=== PATIENT | male | born 1965 | race Caucasian/White ===

== ENCOUNTER → 2019-02-12 | Outpatient (CLI) | payer MEDICAID, OTHER ==
--- NOTE | 2019-02-13 08:43 | REP ---
MRI cervical spine without contrast: History: Chronic neck pain. No comparison cervical spine imaging. Technique: Sagittal and axial T1 and T2-weighted scans are acquired in the usual fashion with and without fat saturation. Sequences include spin echo, turbo spin-echo, and STIR imaging sequences. MRI findings: There is reversal of the normal cervical lordosis. Cervical vertebral body heights are preserved. Alignment is otherwise normal. Craniocervical junction is unremarkable. Cervical cord demonstrates normal course, caliber, and signal intensity on T1 and T2-weighted scans. Axial and sagittal images taken at the C2-3 level show no abnormality. At C3-4, there is mild diffuse disc bulging effacing the ventral subarachnoid space. No cord compression or neural foraminal narrowing. At C4-5, there is degenerative disc narrowing and decreased disc space signal intensity. Diffuse disc bulging and mild posterior osteophytic ridging is seen with bilateral neural foraminal narrowing. There is minimal ligamentum flavum hypertrophy dorsally. These factors produce central canal stenosis mild in degree. Midline AP dimension of the thecal sac is 8 mm at this level. At C5-C6, there is a broad-based disc bulge eccentric slightly to the right effacing the ventral subarachnoid space. No significant canal stenosis. There is minimal uncovertebral spurring. At C6-C7, there is disc space narrowing and mild diffuse disc bulging. Mild bilateral uncovertebral spurring is seen. No central canal stenosis or cord compression. The C7-T1 level shows no abnormality. Impression: Degenerative spondylosis changes. Findings include mild central canal stenosis at C4-5 with bilateral neural foraminal narrowing. Mild bilateral neural foraminal narrowing is also noted at the C5-6 and C6-7. Electronically Signed by Rikki Timmons MD 02/13/2019 06:30 P
--- NOTE | 2019-02-13 08:43 | REP ---
Lumbar spine without contrast: History: Chronic back pain. No comparison imaging. Technique: Sagittal and axial T1 and T2-weighted scans are acquired in the usual fashion with and without fat saturation. Sequences include spin echo, turbo spin-echo, and STIR imaging sequences. MRI findings: Lumbar vertebral body heights are preserved. Alignment is normal. There is no evidence of spondylolysis or spondylolisthesis. Cortical and medullary bone signal intensity are normal. Conus medullaris is normal in position and appearance at L1. No extra spinal abnormality is observed. Normal caliber aorta. There are degenerative disc changes at each level from L2-3 L5-S1. Axial and sagittal images at the L1-L2 level show no abnormality. L2-3, there is degenerative disc narrowing and mild diffuse disc bulging indenting the ventral thecal sac margin. No central canal stenosis or neural foraminal narrowing is noted. No focal disc herniation is seen. At L3-4, there are similar findings with minimal disc bulging and narrowing. At L3-4, there is mild ligamentum flavum and facet hypertrophy. No central canal stenosis is noted. Neural foramina show no evidence of encroachment. At L4-5, there is mild facet and ligamentum flavum hypertrophy. Minimal disc bulging. No central canal stenosis or neural foraminal narrowing is seen. At L5-S1, there is degenerative narrowing. Broad-based central disc bulging is seen indenting the thecal sac margin and subtly. No neural foraminal narrowing or central canal stenosis seen. Impression: Mild degenerative spondylosis changes as noted above. No spinal stenosis, focal disc herniation, or neural foraminal narrowing is appreciated. Electronically Signed by Rikki Timmons MD 02/13/2019 06:30 P
== END ==
LOC: M RAD 16:34
PROVIDERS: ATTEND Family Medicine
DX: M54.5 Low back pain (principal); M43.16 Spondylolisthesis, lumbar region; M43.12 Spondylolisthesis, cervical region; M50.21 Other cervical disc displacement, high cervical region; M50.221 Other cervical disc displacement at C4-C5 level; M50.222 Other cervical disc displacement at C5-C6 level; M50.223 Other cervical disc displacement at C6-C7 level

== ENCOUNTER → 2019-02-24 | Outpatient (REF) | payer OTHER ==
[2019-02-24 13:24] LABS: BASO # 0.1 10^3/uL (0.0-0.2); BASO % 0.8 % (0.0-1.0); EOS # 0.7 10^3/uL (0.0-0.50); EOS % 5.5 % (0.0-3.0); HEMOGLOBIN 17.2 g/dl (13.5-17.5); LYMPH # 2.4 10^3/uL (1.5-4.5); LYMPH % 19.4 % (24.0-44.0); MEAN CORPUSCULAR HEMOGLOBIN 29.6 pg (27.0-33.0); MEAN CORPUSCULAR HGB CONC 32.5 g/dl (32.0-36.5); MEAN CORPUSCULAR VOLUME 91.2 fl (80.0-96.0); MONO # 0.6 10^3/uL (0.0-0.8); MONO % 5.1 % (0.0-5.0); NEUTROPHILS # 8.3 10^3/uL (1.8-7.7); NEUTROPHILS % 67.8 % (36.0-66.0); PLATELET COUNT, AUTOMATED 350 10^3/uL (150-450); RED BLOOD COUNT 5.81 10^6/uL (4.30-6.10); WHITE BLOOD COUNT 12.3 10^3/uL (4.0-10.0)
[2019-02-24 13:51] LABS: ALT/SGPT 38 U/L (12-78); BILIRUBIN,TOTAL 0.2 MG/DL (0.2-1.0); BLOOD UREA NITROGEN 14 MG/DL (7-18); CALCIUM LEVEL 8.8 MG/DL (8.5-10.1); CARBON DIOXIDE LEVEL 28 MEQ/L (21-32); CHLORIDE LEVEL 107 MEQ/L (98-107); CHOLESTEROL LEVEL 223 MG/DL (<200); CREATININE FOR GFR 0.89 MG/DL (0.70-1.30); GLOMERULAR FILTRATION RATE > 60.0 (>56); GLUCOSE, FASTING 88 MG/DL (70-100); POTASSIUM SERUM 4.5 MEQ/L (3.5-5.1); SODIUM LEVEL 140 MEQ/L (136-145); TRIGLYCERIDES LEVEL 126 MG/DL (<150)
[2019-02-24 13:52] LABS: ALBUMIN 3.8 GM/DL (3.2-5.2); COMPLEMENT C3 124 MG/DL (90-180); COMPLEMENT C4 28 MG/DL (10-40); HDL CHOLESTEROL 50 MG/DL (>40); LDL CHOLESTEROL 148 MG/DL (<100); NON-HDL-C 173 MG/DL; RHEUMATOID FACTOR QUANT < 10.0 IU/ML (<15.0); THYROXINE (T4) 6.7 UG/DL (4.5-12.0); TOTAL PROTEIN 6.6 GM/DL (6.4-8.2); URIC ACID 5.2 MG/DL (3.5-7.2)
[2019-02-24 13:53] LABS: TOTAL 25(OH) VITAMIN D 13.3 NG/ML (30.0-100.0)
[2019-02-24 15:32] LABS: HEMOGLOBIN A1c 5.8 %
[2019-02-24 21:53] LABS: ERYTHROCYTE SEDIMENTATION RATE 1 mm/hr (0-20)
== END ==
LOC: M LAB REF 12:26
PROVIDERS: ATTEND Family Medicine
DX: Z13.228 Encounter for screening for other metabolic disorders (principal); M25.50 Pain in unspecified joint

== ENCOUNTER 2019-06-11 12:27 | Emergency (ER) | payer OTHER ==
[~2019-06-11] VITALS: Ht 177.8 cm; Wt 84.4 kg
[2019-06-11 12:28] VITALS: BP 112/76
[2019-06-11] MEDS ORDERED: GABA-1171 (12:35)
[2019-06-11] MEDS ORDERED: TIZA4TAB4 PO (12:35)
[2019-06-11] MEDS ORDERED: PERC5TAB12 PO (13:21)
[2019-08-06] MEDS ORDERED: GABA-843 PO (16:57)
[2019-08-06] MEDS ORDERED: HYDR-3716 PO (16:57)
== END 2019-06-11 13:27 | disposition home or self-care (01) ==
LOC: M ED 12:27
DX: G89.29 Other chronic pain (principal); M54.5 Low back pain; F17.210 Nicotine dependence, cigarettes, uncomplicated

== ENCOUNTER → 2019-06-30 | Outpatient (CLI) | payer OTHER, MEDICAID ==
[~2019-06-30] MED LIST: GABA-1171; GABA-843 PO; HYDR-3716 PO; PERC5TAB12 PO; TIZA4TAB4 PO
--- NOTE | 2019-07-04 00:24 | ECWPNPC ---
PATIENT NAME: CHAYA ESCOBAR : 1965 GENDER: MALE VISIT DATE: 06/30/2019 DISCHARGE DATE: 06/30/19 0000 VISIT LOCKED DATE TIME: PHYSICIAN: ALKA ELLIS MD RESOURCE: ALKA ELLIS MD REASON FOR APPOINTMENT 1. NPC, LBP/NECK HISTORY OF PRESENT ILLNESS PAIN SCREENING: PATIENT HAS A COMPLAINT OF ACUTE OR CHRONIC PAIN :YES 54 YEAR OLD MALE PATIENT WITH A HISTORY OF CHRONIC MULTIPLE BODY PAIN. THE PATIENT DESCRIBES THE PAIN ACHING, BURNING, SORE, TENDER, SHARP, STABBING, SHOOTING, AND CONTINUOUS WITH A PAIN SCORE OF 7-10/10 DEPENDING ON PHYSICAL ACTIVITY. THE PATIENT STATES HE EXPERIENCES PAIN IN HIS SHOULDERS, WRISTS, LOW BACK, AND LEGS, HOWEVER THE WORST AREA IS HIS LOWER BACK. THE PATIENT SAYS HE HAS BEEN SUFFERING FROM THIS PAIN FOR MANY YEARS THAT BEGAN FROM THE NUMEROUS MOVEMENTS FROM THE JOB A C[employer] ENTAILS. 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 THE PATIENT SAYS HE IS USING GABAPENTIN AND NAPROXEN, AND WAS GIVEN A WEEK SUPPLY OF HYDROCODONE THAT HAS HELPED WITH HIS MOBILITY AND FUNCTIONALITY. THE PATIENT STATES HE HAS HAD RHEUMATOLOGIC TESTS DONE IN THE PAST, BUT NOTHING WAS FOUND TO BE AN INDICATOR FOR HIS PAIN. PATIENT DENIES UNEXPLAINABLE WEIGHT LOSS, FEVER, CHILLS, NEW CHANGES ON HIS URINARY OR BOWEL CONTROL. FALL RISK SCREENING: SCREENING :NO FALLS REPORTED IN THE LAST YEAR CURRENT MEDICATIONS TAKING NICODERM CQ 7 MG/24HR PATCH 24 HOUR 1 PATCH TO SKIN TRANSDERMAL ONCE A DAY TAKING NICODERM CQ 14 MG/24HR PATCH 24 HOUR 1 PATCH TO SKIN TRANSDERMAL ONCE A DAY TAKING NAPROXEN 375 MG TABLET DELAYED RELEASE 2 TABLETS ORALLY ONCE A DAY TAKING HYDROCODONE-ACETAMINOPHEN 5-325 MG TABLET 1 TABLET NEEDED ORALLY EVERY 6 HRS TAKING TIZANIDINE HCL 4 MG TABLET 1 TABLET NEEDED ORALLY THREE TIMES A DAY TAKING GABAPENTIN 100 MG CAPSULE 1 CAPSULE ORALLY ONCE A DAY TAKING AMMON ALLERGY 180 MG TABLET 1 TABLET NEEDED ORALLY ONCE A DAY MEDICATION LIST REVIEWED AND RECONCILED WITH THE PATIENT PAST MEDICAL HISTORY PSORIASIS CHRONIC NECK PAIN CHRONIC LOW BACK PAIN ALLERGIES N.K.D.A. SURGICAL HISTORY RIGHT LEG VEIN STRIPPING X 2 2009 LEFT LEG VEIN STRIPPING 2009 FAMILY HISTORY FATHER: , DIAGNOSED WITH CANCER MOTHER: 2 BROTHER(S) , 1 SISTER(S) - HEALTHY. MOTHER-CONGENITAL LIVER DISEASE. SOCIAL HISTORY GENERAL: TOBACCO USE ARE YOU A:CURRENT SMOKER ARE YOU INTERESTED IN QUITTING?READY TO QUIT USING PATCHES TO QUIT COUNSELED THE PATIENT ON TOBACCO USE, CESSATION [id number]/26/2019 PAIN CLINIC PFS, CLERGY, PUBLIC HEALTH REFERRALS HAS THE PATIENT BEEN EDUCATED REGARDING HIS/HER PLAN OF CARE?YES HAS THE PATIENT BEEN EDUCATED REGARDING PAIN, THE RISK FOR PAIN, THE IMPORTANCE OF EFFECTIVE PAIN MANAGEMENT, AND THE PAIN ASSESSMENT PROCESS?YES ADVANCE DIRECTIVE ADVANCE DIRECTIVE DISCUSSED WITH PATIENT:YES DECLINED VOODOO [id number] AGNOSTIC LANGUAGE LANGUAGES SPOKEN:LITHUANIAN LEARNING BARRIERS / SPECIAL NEEDS BARRIERS TO LEARNING?NO HEARING IMPAIRED?NO VISION IMPAIRED?YES :CORRECTIVE LENSES COGNITIVELY IMPAIRED?NO READINESS TO LEARN?YES LEARNING PREFERENCES?NO LEARNING CAPABILITIES PRESENT?YES EMOTIONAL BARRIERS?NO SPECIAL DEVICES?NO HOSPITALIZATION/MAJOR DIAGNOSTIC PROCEDURE DENIES PAST HOSPITALIZATION REVIEW OF SYSTEMS REVIEWED BY: PROVIDER: ALKA ELLIS MD . CONSTITUTIONAL: ANY CHANGE IN YOUR MEDICAL CONDITION? NO . CHILLS NO . FEVER NO . INFECTION: DO YOU HAVE NEW INFECTIONS? NO . DO YOU HAVE HISTORY OF MRSA? NO . MUSCULOSKELETAL: ANY NEW PATTERNS OF PAIN OR NUMBNESS? NO . SYTEMIC LUPUS NO . GASTROENTEROLOGY: ANY NEW CHANGE IN BOWEL CONTROL? NO . BARRETTS ESOPHAGUS NO . CIRRHOSIS NO . HEPATITIS NO . LIVER FAILURE NO . ACID REFLUX NO . UNEXPLAINED WEIGHT LOSS NO . GENITOURINARY: ANY NEW CHANGE IN BLADDER CONTROL? NO . IS THERE A CHANCE YOU COULD BE ? NO . HEMATOLOGY/LYMPH: DO YOU TAKE ANY BLOOD THINNERS? (FOR EXAMPLE- COUMADIN, PLAVIX, AGGRENOX, PLATEL, PRADAXA, OR XARELTO) NO . WHEN WAS YOUR LAST DOSE? DATE: TIME: . LOW PLATELET COUNT NO . SICKLE CELL DISEASE NO . VON WILLIEBRANDS NO . FACTOR V LEIDEN NO . THALLASEMIA NO . ANEMIA NO . EASY BRUISING NO . NEUROLOGY: HAVE YOU FALLEN IN THE PAST 12 MONTHS? YES, FELL 2 WEEKS AGO FROM LOSS OF BALANCE DUE TO PAIN, PT WENT TO [facility] ER FOR LOW BACK PAIN, PT WAS GIVEN OXYCODONE 5 MG X 3 DAYS, PT STATES THIS HELPED . ANY NEW EXTREMITY NUMBNESS OR WEAKNESS? NO . HEAD INJURY NO . DEMENTIA NO . CEREBRAL PALSY NO . MULTIPLE SCLEROSIS NO . DIZZINESS NO . HEADACHE NO . STROKES NO . VERTIGO NO . CARDIOLOGY: DO YOU HAVE A PACEMAKER OR DEFIBRILLATOR? NO . ANGINA NO . HEART ATTACK NO . HEART SURGERY NO . CONGESTIVE HEART FAILURE/FLUID OVERLOAD NO . CHEST PAIN NO . HIGH BLOOD PRESSURE NO . IRREGULAR HEART BEAT NO . RESPIRATORY: HAVE YOU BEEN SICK IN THE PAST WEEK? NO . FEVER NO . FLU LIKE SYMPTOMS? NO . CPAP NO . BYPAP NO . ASTHMA NO . EMPHYSEMA NO . CHRONIC LUNG DISEASES NO . SHORTNESS OF BREATH ON EXERTION NO . COUGH NO . SNORING NO . INTEGUMENTARY: DO YOU HAVE ANY RASHES OR OPEN SORES? YES, PSORIASIS TO LEFT LOW LEG . ALLERGIC/IMMUNO: ARE YOU ALLERGIC TO IV DYE? NO . ANY NEW ALLERGIES? NO . PSYCHIATRIC: DO YOU HAVE THOUGHTS OF HURTING YOURSELF OR SOMEONE ELSE? NO . ARE YOU ABUSED, NEGLECTED, OR IN AN UNSAFE ENVIRONMENT? NO . ENDOCRINOLOGY: ARE YOU DIABETIC? NO . THYROID DISORDER NO . OTHER: DO YOU NEED ANY PRESCRIPTIONS? YES, TO DISCUSS WITH DR ELLIS . IF YES, PLEASE LIST: ____ . ANY NEW PROBLEMS WITH YOUR MEDICATIONS? NO . WHEN DID YOU LAST EAT? ____ . WHEN DID YOU LAST DRINK? ____ . WHAT DID YOU LAST DRINK? ____ . NAME OF PERSON DRIVING YOU HOME? ____ . DO YOU HAVE ANY OTHER QUESTIONS OR CONCERNS NO . VITAL SIGNS WT 195.8 LBS, HT 71 IN, BMI 27.31 INDEX, BP 132/80 MM HG, HR 75 /MIN, RR 18 /MIN, TEMP 97.7 F, OXYGEN SAT % 97%, NA INITIALS AW 0951, REVIEWED BY: EM. EXAMINATION GENERAL EXAMINATION: PATIENT IS ALERT O X 3 AND COOPERATIVE. LUNGS CLEAR, TO AUSCULTATION. HEART: NO MURMURS OR GALLOPS; FACIAL CRANIAL NERVES ARE GROSSLY NORMAL. GOOD SYMMETRY OF FACIAL MUSCLE MOVEMENT. NORMAL VISUAL JOY. TENDERNESS IN THE LOW BACK AREA. PRESENCE OF BANDS OF TISSUE AND TRIGGER POINTS WITH RESTRICTION OF MOVEMENT OF THE LOW BACK. TENDERNESS IN BOTH WRISTS. PATIENT CAN ABDUCT BOTH UPPER EXTREMITIES TO SHOULDER LEVEL AND WITH DIFFICULTY GOING ANY HIGHER. BOTH ARMS ARE WEAKER AT EXTENSION AND FLEXION. HAND LIFTS AND CRANES INSPECTOR ON BOTH SIDES ARE REDUCED. SORENESS IN THE NECK ON BOTH SIDES. STRAIGHT LEG RAISE OF BOTH LEGS ARE POSITIVE AT 30 DEGREES FOR RADICULOPATHY. FABERE TEST PRESENTS "STIFFNESS" ON BOTH SIDES. MRI OF THE CERVICAL SPINE DONE ON 02/12/2019 SHOWS BULGING DISCS AND FACET ARTHROPATHY CHANGES AT MULTIPLE LEVELS. MRI OF THE LUMBAR SPINE DONE ON 02/12/2019 SHOWS FACET ARTHROPATHY CHANGES AND A BULGING DISC AT L5-S1 LEVEL. 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 ESCOBAR'S PAIN MANAGEMENT CASE. I DISCUSSED WITH THE PATIENT ABOUT THE OPTION OF DOING TRIGGER POINT INJECTIONS, AND DEPENDING ON THE RESULTS, WE MAY MOVE ON TO TRY FACET BLOCKS TO CONSIDER RADIOFREQUENCY ABLATION. THE PATIENT IS INTERESTED IN MANAGING HIS PAIN THROUGH MEDICATION MANAGEMENT, THEREFORE I WILL REFER THE PATIENT TO [facility]'S PALLIATIVE CARE PROGRAM TO BE SEEN SOON POSSIBLE. INSTRUCTIONS WERE GIVEN, QUESTIONS WERE ANSWERED, PATIENT REPORTS UNDERSTANDING AND AGREES WITH THE PLAN. I, SIMON SOMERS, DOCUMENTED THE ABOVE INFORMATION ACTING A SCRIBE FOR DR. ELLIS. I HAVE REVIEWED THE ABOVE DOCUMENT, WRITTEN BY SIMON SINGH AND I VERIFY THAT IT IS ACCURATE. DEAR DR. VON JENSEN MD: THANK YOU FOR YOUR KIND REFERRAL OF CHAYA ESCOBAR. IF YOU WANT TO DISCUSS HIS CASE WITH ME PLEASE CALL ME AT THE PAIN CENTER AT [phone]. SINCERELY, ALKA ELLIS MD PAIN MEDICINE . PROCEDURE CODES FA211 ESTABILISHED PATIENT [facility] FACILITY CHARGE G8427 CURRENT MEDS W/DOSAGES DOCUMENTED G8730 PAIN ASSESS POS TOOL F/U PLAN DOC DISPOSITION & COMMUNICATION FOLLOW UP REASON: REFER TO PALLIATIVE CARE ELECTRONICALLY SIGNED BY ALKA ELLIS MD, ON 07/03/2019 AT 02:23 PM EDT DISCLAIMER : THIS IS A VISIT SUMMARY EXTRACTED FROM THE [employer] CHART. IT IS NOT A COPY OF THE [employer] PROGRESS NOTE. BRUNOD
== END ==
LOC: M PAIN 10:30
PROVIDERS: ATTEND Anesthesiology
DX: M54.2 Cervicalgia (principal); M79.18 Myalgia, other site; M54.5 Low back pain; G89.29 Other chronic pain; M47.812 Spondylosis without myelopathy or radiculopathy, cervical region; M47.816 Spondylosis without myelopathy or radiculopathy, lumbar region; M47.817 Spondylosis without myelopathy or radiculopathy, lumbosacral region; F17.210 Nicotine dependence, cigarettes, uncomplicated; Z79.899 Other long term (current) drug therapy

== ENCOUNTER → 2019-08-07 | Outpatient (REF) | payer OTHER, MEDICAID ==
[2019-08-07 13:41] LABS: ALBUMIN 3.8 GM/DL (3.2-5.2); ALT/SGPT 40 U/L (12-78); BILIRUBIN,TOTAL 0.5 MG/DL (0.2-1.0); BLOOD UREA NITROGEN 14 MG/DL (7-18); CALCIUM LEVEL 8.9 MG/DL (8.5-10.1); CARBON DIOXIDE LEVEL 30 MEQ/L (21-32); CHLORIDE LEVEL 106 MEQ/L (98-107); CHOLESTEROL LEVEL 205 MG/DL (<200); CHOLESTEROL RISK RATIO 4.555 (<5); CREATININE FOR GFR 1.04 MG/DL (0.70-1.30); GLOMERULAR FILTRATION RATE > 60.0 (>56); GLUCOSE, FASTING 91 MG/DL (70-100); HDL CHOLESTEROL 45 MG/DL (>40); LDL CHOLESTEROL 110 MG/DL (<100); NON-HDL-C 160 MG/DL; SODIUM LEVEL 139 MEQ/L (136-145); TOTAL PROTEIN 6.9 GM/DL (6.4-8.2); TRIGLYCERIDES LEVEL 252 MG/DL (<150)
[2019-08-07 13:59] LABS: HEMOGLOBIN A1c 5.5 %
== END ==
LOC: M LAB REF 12:31
PROVIDERS: ATTEND Family Medicine
DX: E78.5 Hyperlipidemia, unspecified (principal); R73.03 Prediabetes

== ENCOUNTER 2020-01-05 20:28 | Emergency (ER) | payer MEDICAID, OTHER ==
[~2020-01-05] VITALS: Ht 177.8 cm; Wt 84.1 kg
[2020-01-05] MEDS ORDERED: OXYC15TA76 (20:42)
[2020-01-05] MEDS ORDERED: propofoL 200 MG/20 ML VIAL As Ordered ONE (22:01)
[2020-01-05 22:21] VITALS: BP 142/83
[2020-01-05 22:25] VITALS: O2SAT 96
[2020-01-05] MEDS ORDERED: NORCO 5/325MG TABLET (BULK FOR ED) PO ONE (22:45)
[2020-01-06] MEDS ORDERED: propofoL 200 MG/20 ML VIAL IV ONE (01:15)
--- NOTE | 2020-01-06 08:10 | REP ---
Left forearm: Two views. History: Trauma. Findings: Two views left forearm demonstrate an impacted distal radial metaphyseal fracture with some dorsal displacement. No ulnar fracture is visible. There are is no proximal forearm fracture. There is fragmented spurring at the lateral epicondyle. Impression: Impacted and somewhat displaced distal radial metaphyseal fracture. No more proximal fracture seen. Electronically Signed by Rikki Timmons MD 01/06/2020 08:02 A
--- NOTE | 2020-01-06 08:11 | REP ---
Left wrist series: Four views. History: Trauma. Findings: Four views of the left wrist demonstrate a comminuted impacted fracture of the distal radial metaphysis with apex volar angulation and some dorsal displacement. There is associated soft-tissue swelling. No carpal fracture is appreciated. There is first metacarpal carpal articulation osteoarthritic spurring. No distal ulnar fracture is appreciated. Impression: Comminuted, impacted, angulated fracture distal radial metaphysis. Electronically Signed by Rikki Timmons MD 01/06/2020 08:02 A
--- NOTE | 2020-01-06 08:20 | REP ---
Left wrist: Two views. History: Post reduction. Findings: AP and lateral views are taken through overlying cast material demonstrate markedly improved position of the distal radial fracture. Electronically Signed by Rikki Timmons MD 01/06/2020 08:12 A
== END 2020-01-05 23:13 | disposition home or self-care (01) ==
LOC: M ED 20:28
DX: S52.592A Other fractures of lower end of left radius, initial encounter for closed fracture (principal); W00.0XXA Fall on same level due to ice and snow, initial encounter; Y92.410 Unspecified street and highway as the place of occurrence of the external cause; G89.29 Other chronic pain; F17.210 Nicotine dependence, cigarettes, uncomplicated

== ENCOUNTER → 2020-01-13 | Outpatient (REF) | payer OTHER, MEDICAID ==
[~2020-01-13] MED LIST changes: +OXYC15TA76
[2020-01-13 16:32] LABS: HEMATOCRIT 51.1 % (42.0-52.0); HEMOGLOBIN 16.3 g/dl (13.5-17.5); MEAN CORPUSCULAR VOLUME 92.1 fl (80.0-96.0); RED BLOOD COUNT 5.55 10^6/uL (4.30-6.10); WHITE BLOOD COUNT 11.1 10^3/uL (4.0-10.0)
[2020-01-13 16:33] LABS: BASO # 0.1 10^3/uL (0.0-0.2); BASO % 0.6 % (0.0-1.0); EOS # 0.3 10^3/uL (0.0-0.5); LYMPH # 1.7 10^3/uL (1.5-5.0); LYMPH % 15.6 % (24.0-44.0); MEAN CORPUSCULAR HEMOGLOBIN 29.4 pg (27.0-33.0); MEAN CORPUSCULAR HGB CONC 31.9 g/dl (32.0-36.5); MONO # 0.7 10^3/uL (0.0-0.8); MONO % 6.3 % (0.0-5.0); NEUTROPHILS # 8.2 10^3/uL (1.5-8.5); NEUTROPHILS % 74.2 % (36.0-66.0); PLATELET COUNT, AUTOMATED 223 10^3/uL (150-450)
[2020-01-13 16:35] LABS: ALBUMIN 3.6 GM/DL (3.2-5.2); ALT/SGPT 23 U/L (12-78); BILIRUBIN,TOTAL 0.4 MG/DL (0.2-1.0); BLOOD UREA NITROGEN 15 MG/DL (7-18); CALCIUM LEVEL 9.1 MG/DL (8.5-10.1); CARBON DIOXIDE LEVEL 32 MEQ/L (21-32); CHLORIDE LEVEL 104 MEQ/L (98-107); CHOLESTEROL LEVEL 176 MG/DL (<200); FREE T4 1.07 NG/DL (0.76-1.46); GLOMERULAR FILTRATION RATE > 60.0 (>56); GLUCOSE, FASTING 110 MG/DL (70-100); HDL CHOLESTEROL 51 MG/DL (>40); LDL CHOLESTEROL 108 MG/DL (<100); NON-HDL-C 125 MG/DL; POTASSIUM SERUM 4.4 MEQ/L (3.5-5.1); SODIUM LEVEL 139 MEQ/L (136-145); TOTAL PROTEIN 6.4 GM/DL (6.4-8.2); TRIGLYCERIDES LEVEL 86 MG/DL (<150)
[2020-01-13 16:36] LABS: TOTAL 25(OH) VITAMIN D 13.1 NG/ML (30.0-100.0)
[2020-01-13 16:50] LABS: HEMOGLOBIN A1c 5.5 %
== END ==
LOC: M LAB REF 15:46
PROVIDERS: ATTEND Nurse Practitioner Family
DX: E78.5 Hyperlipidemia, unspecified (principal); R73.03 Prediabetes; F17.210 Nicotine dependence, cigarettes, uncomplicated; M25.50 Pain in unspecified joint; M54.2 Cervicalgia; M54.5 Low back pain

== ENCOUNTER 2020-01-20 14:46 | Day surgery (SDC) | payer OTHER ==
[~2020-01-20] VITALS: Ht 179.1 cm; Wt 77.9 kg
[~2020-01-20 14:46] MED LIST changes: +ceFAZolin SOD 2 GM in IV 1 EA IV ONE
[2020-01-20] MEDS ORDERED: IBUP-1022 PO (17:29)
[2020-01-20] MEDS ORDERED: LIDOCAINE 2% INJ 100 MG/5 ML SDV (FOR ANES.) As Ordered ONE (19:47)
[2020-01-20] MEDS ORDERED: ONDANSETRON 4MG/2ML VIAL (J2405) As Ordered ONE (19:47)
[2020-01-20] MEDS ORDERED: dexameTHASONE 4 MG/ML 1ML VIAL (J1100) As Ordered ONE (19:47)
[2020-01-20] MEDS ORDERED: propofoL 200 MG/20 ML VIAL As Ordered ONE (19:47)
[2020-01-20] MEDS ORDERED: MIDAZOLAM INJ 2 MG/2 ML VIAL (J2250) As Ordered ONE (19:51)
[2020-01-20] MEDS ORDERED: fentaNYL 100 MCG/2 ML INJECTION (J3010) As Ordered ONE ×3 (19:51→22:41)
[2020-01-20] MEDS ORDERED: ACETAMINOPHEN 1000MG 100ML IV BTL (OFIRMEV) (J0131 PER 10MG) As Ordered ONE (21:35)
[2020-01-20] MEDS ORDERED: BUPIVACAINE/EPIN 0.25% 30 ML VIAL As Ordered ONE (21:42)
[2020-01-20] MEDS ORDERED: ONDANSETRON 4MG/2ML VIAL (J2405) IV PRN (22:30)
[2020-01-20] MEDS ORDERED: LR 1,000 ML IV SCH (22:30)
[2020-01-20] MEDS ORDERED: METOCLOPRAMIDE INJ 10MG/2ML VIAL (J2765) IV PRN (22:30)
[2020-01-20] MEDS ORDERED: oxyCODONE 5MG TAB As Ordered ONE (22:41)
[2020-01-20] MEDS: fentaNYL 100 MCG/2 ML INJECTION (J3010) IV PRN ×4 (22:41→22:59)
[2020-01-20] MEDS: oxyCODONE 5MG TAB PO PRN ×2 (22:41→23:26)
[2020-01-20] MEDS ORDERED: oxyCODONE 5MG TAB PO PRN (22:45)
[2020-01-20] MEDS ORDERED: MORPHINE 10 MG/ML 1ML VIAL (J2270) As Ordered ONE (23:03)
[2020-01-20] MEDS: MORPHINE 2 MG/ML 1ML VIAL (J2270) IV PRN ×5 (23:04→23:44)
[2020-01-20] MEDS ORDERED: KETOROLAC 30 MG/ML VIAL (J1885) IV ONE (23:16)
[2020-01-20] MEDS ORDERED: KETOROLAC 30 MG/ML VIAL (J1885) As Ordered ONE (23:18)
[2020-01-21] VITALS (7 sets, daily range): BP systolic 134–138; BP diastolic 81–87
[2020-01-21] MEDS ORDERED: OXYC-517 PO (05:59)
--- NOTE | 2020-01-21 09:47 | RO ---
DATE OF PROCEDURE: 01/20/2020 PREPROCEDURE DIAGNOSIS: Left distal radius fracture. POSTPROCEDURE DIAGNOSIS: Left distal radius fracture. PROCEDURE: Open reduction internal fixation of comminuted intra-articular distal radius fracture. SURGEON: Dr. Niles Cline INDICATION: This is a 54-year-old male that failed nonoperative modes of treatment. He had a closed reduction and casting that lost reduction. Discussed the risks and benefits of operative intervention including but not limited to infection, damage to surrounding structures, malunion, nonunion. Patient wished to proceed. PREOPERATIVE ANTIBIOTICS: 2 grams of Ancef. COMPLICATIONS: None. TOURNIQUET TIME: 45 minutes. PROMOTION OFFICER: None. ANESTHESIA: General. BLOOD LOSS: Minimal. DESCRIPTION OF PROCEDURE: The patient was brought back to the operating room (OR) in the supine position and underwent general anesthesia. The left arm was prepped and draped in the usual fashion. We then performed a time out confirming site, side, and surgery. We then injected 0.25% Marcaine with epinephrine overlying the incision. We then made a longitudinal incision along the FCR. I sharply dissected subcutaneous tissue and incised the FCR sheath, retracted ulnarly and incised the deep portion of FCR sheath and retracted FPL all the way as well. I exposed the pronator quadratus, this was pinned up as a solid sheet exposing the fracture site. Due to the fact that we have failed nonoperative, significant callus there. Extra time was needed to debride this callus in order to get a reduction. Released brachioradialis insertion on the radial styloid, at which point we used a combination of [place] elevator and osteotome to help elevate the distal radius fracture and to reduce position we used a fixed K-wire from the radial styloid and locked into place, confirming our reduction on AP and lateral, at which point, we took a three-hole plate and secured it to shaft through the oblong hole checking on plate position on the lateral, we then placed three distal locking screws securely into place and two more in the shaft. We did try to place some force, however, we burnt the thread from the left mechanism and screws dissipated and therefore the decision was made that with adequate fixation distally therefore we removed the screw using a screw removal tray and a conical reversed cutting thread. Final films were taken demonstrating adequate reduction and fixation without screw penetration to the radial carpal joint or DRUJ. At this point the wound was irrigated thoroughly, closed with #2-0 Vicryl, #3-0 nylon, placed a dressing and Adaptic gauze and the dorsal base in a cockup splint. Patient was awakened, taken to the post-anesthesia care unit (PACU) in stable condition. POSTOPERATIVE PLAN: The patient will attempt to work on range of motion, pain control. We will see him in the office in 2 weeks, at which point we will convert him over to a removable brace at that time after suture removal.
== END 2020-01-21 14:00 | disposition home or self-care (01) ==
LOC: M SDC 14:46 → M MS5PR 01-21 → M SDC 01-21 14:00
PROVIDERS: ATTEND Orthopaedic Surgery Hand Surgery
DX: S52.572A Other intraarticular fracture of lower end of left radius, initial encounter for closed fracture (principal); X58.XXXA Exposure to other specified factors, initial encounter; Y92.89 Other specified places as the place of occurrence of the external cause; Y93.9 Activity, unspecified; Y99.9 Unspecified external cause status; F17.218 Nicotine dependence, cigarettes, with other nicotine-induced disorders; M54.5 Low back pain; Z79.899 Other long term (current) drug therapy
CPT/HCPCS: 25609; 76000; C1713; J0131; J1100; J1885; J2250; J2270; J2405; J3010

== ENCOUNTER → 2020-08-18 | Outpatient (REF) | payer OTHER, MEDICAID ==
[~2020-08-18] MED LIST changes: +IBUP-1022 PO; +OXYC-1; +OXYC-517 PO; -OXYC15TA76; -ceFAZolin SOD 2 GM in IV 1 EA IV ONE
[2020-08-18 12:37] LABS: BASO # 0.1 10^3/uL (0.0-0.2); BASO % 0.8 % (0.0-1.0); EOS # 0.8 10^3/uL (0.0-0.5); EOS % 5.9 % (0.0-3.0); HEMATOCRIT 49.6 % (42.0-52.0); HEMOGLOBIN 15.9 g/dl (13.5-17.5); LYMPH # 2.3 10^3/uL (1.5-5.0); MEAN CORPUSCULAR HEMOGLOBIN 30.3 pg (27.0-33.0); MEAN CORPUSCULAR HGB CONC 32.1 g/dl (32.0-36.5); MEAN CORPUSCULAR VOLUME 94.5 fl (80.0-96.0); MONO % 7.1 % (0.0-5.0); NEUTROPHILS # 9.2 10^3/uL (1.5-8.5); NEUTROPHILS % 68.6 % (36.0-66.0); PLATELET COUNT, AUTOMATED 282 10^3/uL (150-450); RED BLOOD COUNT 5.25 10^6/uL (4.30-6.10); WHITE BLOOD COUNT 13.5 10^3/uL (4.0-10.0)
[2020-08-18 13:14] LABS: ALBUMIN 3.7 GM/DL (3.2-5.2); ALT/SGPT 27 U/L (12-78); BILIRUBIN,TOTAL 0.2 MG/DL (0.2-1.0); BLOOD UREA NITROGEN 12 MG/DL (7-18); CARBON DIOXIDE LEVEL 28 MEQ/L (21-32); CHLORIDE LEVEL 103 MEQ/L (98-107); CHOLESTEROL LEVEL 220 MG/DL (<200); CHOLESTEROL RISK RATIO 3.928 (<5); CREATININE FOR GFR 1.01 MG/DL (0.70-1.30); FREE T4 0.99 NG/DL (0.76-1.46); GLOMERULAR FILTRATION RATE > 60.0 (>56); GLUCOSE, FASTING 97 MG/DL (70-100); HDL CHOLESTEROL 56 MG/DL (>40); LDL CHOLESTEROL 114 MG/DL (<100); NON-HDL-C 164 MG/DL; POTASSIUM SERUM 4.1 MEQ/L (3.5-5.1); SODIUM LEVEL 138 MEQ/L (136-145); TOTAL 25(OH) VITAMIN D 71.9 NG/ML (30.0-100.0); TOTAL PROTEIN 6.8 GM/DL (6.4-8.2); TRIGLYCERIDES LEVEL 252 MG/DL (<150)
== END ==
LOC: M LAB REF 11:05
PROVIDERS: ATTEND Family Medicine Addiction Medicine
DX: F33.1 Major depressive disorder, recurrent, moderate (principal); E55.9 Vitamin D deficiency, unspecified

== ENCOUNTER 2020-12-26 13:13 | Emergency (ER) | payer OTHER, MEDICAID ==
[~2020-12-26] VITALS: Ht 177.8 cm; Wt 74.1 kg
[~2020-12-26 13:13] MED LIST changes: +GABA-282 PO; -GABA-843 PO
--- OUTSIDE RECORDS SUMMARY | 2020-12-26 13:18 | CCD ---
Author Organization Unknown Address [address] [place] [address] Phone [phone] Care Team Providers Care Manager Field Sales Name Role Phone [facility] 212 [phone] Allergies Code Code System Name Reaction Severity Status Onset NKDA Medications Name Status Start Date Stop Date acetaminophen 300 mg-codeine 30 mg tablet Active 2020 Not available cefdinir 300 mg capsule Completed 11/25/19 cyclobenzaprine 10 mg tablet TAKE ONE TABLET BY MOUTH THREE TIMES A DAY NEEDED FOR SPASMS Active Not available dextromethorphan-guaifenesin ER 60 mg-1, 200 mg tab,extend release,12hr Take 1 tablet twice a day by oral route as needed for 7 days. Completed 11/25/2020 ergocalciferol (vitamin D2) 1,250 mcg (5 0,000 unit) capsule TAKE 1 CAPSULE BY MOUTH EVERY WEEK Active Not available escitalopram 10 mg tablet Completed 2019 fluticasone propionate 50 mcg/actuation nasal spray,suspension A ctive Not available gabapentin 100 mg capsule TAKE 1 3 CAPSULES BY MOUTH THREE TIMES A DAY NEEDED FOR PAIN Completed 09/06/2020 gabapentin 300 mg capsule TAKE ONE CAPSULE BY MOUTH EVERY MORNING AND 2 AT BEDTIME Active Not available ibuprofen 800 mg tablet Take 1 tablet 3 times a day by oral route as needed. Active Not available nicotine 21 mg/24 hr daily transdermal patch Active Not available oxycodone 15 mg tablet TAKE ONE TABLET BY MOUTH EVERY 4 HOURS NEEDED FOR PAIN MAXIMUM DAILY DOSE SIX TABLETS Active Not available oxycodone-acetaminophen 5 mg-325 mg tabl et TAKE ONE TABLET BY MOUTH EVERY 6 HOURS NEEDED FOR POST OP PAIN MAXIMUM DAILY DOSE FOUR TABLETS Completed 11/19/2020 polyethylene glycol 3350 17 gram/dose or al powder 17 GRAMS MIXED IN 8 OUNCES OF FLUID TO BE TAKEN BY MOUTH ONCE DAILY NEEDED CONSTIPATION Active Not available Senexon-S 8.6 mg-50 mg tablet TAKE TWO TABLETS BY MOUTH TWICE A DAY Active N ot available tizanidine 4 mg tablet Completed venlafaxine ER 150 mg capsule,extended release 24 hr Active Not available venlafaxine ER 75 mg capsule,extended release 24 hr Completed 11/19/2020 Problems Name Status Onset Date Source Low Back Pain Active 01/15/2019 History Endocrine/metabolic Screening Active 01/15/2019 Hi story Finding of Neck Region Active 01/15/2019 History Finding of Body Region Active 01/15/2019 History Prediabetes Active 03/24/2019 History Screening Procedure Active 03/24/2019 History Congenital Pes Planus of Right Foot Active 03/24/2019 History Tobacco Dependence Caused by Cigarettes Active 03/24/20 History Dental Caries on Smooth Surface Penetrating into Pulp Active 06/13/2019 History Depressive Disorder Active 06/24/2019 History Hyperlipidemia Active 08/07/2019 History Acute Bronchitis Active 08/18/2019 History Vitamin D Deficiency Active 01/24/2020 History Moderate Recurrent Major Depression Active 06/25/2020 History Procedures Date Name Performed by 11/25/2020 XR, Chest, 2 View Information not avai lable Notes: leg sx Results Lab Results None recorded. Past Encounters 11/25/2020 Acute Bronchitis; Low Back Pain Patricio Gonzalez MD: [address] [place] [phone], Ph. 11/19/2020 Nicotine Dependence with Current Use; Acute Upper Respiratory Infection; Recurrent Major Depression Leatha Arzate [facility]-: [address] [place] [phone], Ph. 10/21/2020 Depressive Disorder; Major Depressive Disorder; Recurrent Major Depression Shiv Gonzalez MD: [address] [place] [phone], Ph. 09/06/2020 Moderate Recurrent Major Depression Shiv Gonzalez MD: [address] [place] [phone], Ph. Social History Tobacco Smoking Status Heavy Tobacco Smoker (1 PPD) Vaccine List None recorded. Plan of Care Reminders Provider Appointments None recorded. Lab None recorded. Referral None recorded. Procedures None recorded. Surgeries None recorded. Imaging None recorded. Vitals 11/25/2020 01:40PM TELEHEALTH 20 Height 70 in 11/19/2020 03:00PM SAME DAY 20 Height Weight BMI Blood Pressure 70 in 170 lbs 6.4 oz 24.4 kg/m2 120/79 mm[Hg ] 10/21/2020 09:00AM TELEPSYCH 30 Height Weight BMI 70 in 174 lbs 16 oz 25.1 kg/m2 09/06/2020 02:30PM TELEHEALTH 30 Height Weight BMI 70 in 170 lbs 9.6 oz 24.5 kg/m2 07/08/2020 Height Weight 70 in 156 lbs 06/01/2020 Height Weight Blood Pressure 70 in 161 lbs 127/82 mm[Hg] 03/03/2020 Height Weight Blood Pressure 70 in 171 lbs 3.04 oz 128/82 mm[Hg] 02/04/2020 Height Weight Blood Pressure 70 in 174 lbs 8 oz 107/77 mm[Hg] 08/18/2019 Height Weight Blood Pressure 70 in 192 lbs 2.08 oz 116/75 mm[Hg] 06/24/2019 Height Weight Blood Pressure 70 in 192 lbs 129/85 mm[Hg] 06/13/2019 Blood Pressure 134/74 mm[Hg] 03/24/2019 Height Weight Blood Pressure 70 in 189 lbs 4 oz 107/75 mm[Hg] 01/15/2019 Height Weight Blood Pressure 70 in 194 lbs 130/83 mm[Hg]
--- OUTSIDE RECORDS SUMMARY | 2020-12-26 13:18 | CCD | Continuity of Care Document ---
Author Elvis Ramirez V Organization Unknown Address [address] [facility] [address] [place] [address] Phone [phone] Care Team Providers Care Parimutuel Clerk Name Role Phone Niles Cline MD AUTM Patricio Gonzalez MD AUTM [phone] [facility] Physical Thera Valarie Sethi AUTM Problems Description No Information Available Social History Type Date Description Comments Sex Unknown ETOH Use Occasionally consumes alcohol Tobacco Use Start: Unknown Patient is a current smoker, smo kes every day smokes a pack a day Smoking Status Reviewed: 04/26/20 Patient is a current smoker, smokes every day smokes a pack a day Allergies, Adverse Reactions, Alerts Description No Known Drug Allergies Medications Active Medications SIG Qnty Indications Ordering Provide r Date Oxycodone HCL 15mg Tablets Unknown Gabapentin 300mg Capsules 1 tab po qhs for one week, then one tab po bid for one week then one tab po tid Unknown Tizanidine HCL 4mg Capsules 1 by mouth three times a day Unknown Laxative Formula Tablets Unknown Senexon-S 8.6-50mg Tablets Unknown Immunizations Description No Information Available Vital Signs Date Vital Result Comment 09/23/2020 2:17pm Body Temperature 98.4 F Height 70.5 inches 5'10.50" Weight 174.00 lb BMI (Body Mass Index) 24.6 kg/m2 06/17/2020 11:30am Body Temperature 97.5 F Height 71 inches 5'11" Weight 165.00 lb BMI (Body Mass Index) 23.0 kg/m2 Results Test Acquired Date Facility Test Result H/L Range Note Laboratory test finding 11/12/2020 In House Covid Rapid Testing NEGATIVE Procedures Date Code Description Status 09/23/2020 77556 Nerve Conduction 13+ Studies Com pleted 09/23/2020 81314 Needle Electromyography,Complete Five Or More Muscles Studied Completed 06/16/2020 72685 Therapeutic Procedure, Each 15 M inutes Completed 06/14/2020 29426 Therapeutic Procedure, Each 15 M inutes Completed 06/14/2020 41279 Ultrasound, Each 15 Min, Constan t Attendance Completed 06/11/2020 81261 Therapeutic Procedure, Each 15 M inutes Completed 06/11/2020 98433 Therapeutic Procedure, Each 15 M inutes Completed 06/09/2020 91567 Therapeutic Procedure, Each 15 M inutes Completed 06/09/2020 96114 Ultrasound, Each 15 Min, Constan t Attendance Completed 06/04/2020 53692 Therapeutic Procedure, Each 15 M inutes Completed 05/31/2020 16614 Therapeutic Procedure, Each 15 M inutes Completed 05/31/2020 42029 Therapeutic Procedure, Each 15 M inutes Completed 05/27/2020 76811 Therapeutic Procedure, Each 15 M inutes Completed 05/27/2020 55171 Therapeutic Procedure, Each 15 M inutes Completed 05/25/2020 84282 Therapeutic Procedure, Each 15 M inutes Completed 05/25/2020 62591 Therapeutic Procedure, Each 15 M inutes Completed 05/19/2020 61330 Therapeutic Procedure, Each 15 M inutes Completed 05/19/2020 13289 Therapeutic Procedure, Each 15 M inutes Completed Medical Devices Description No Information Available Encounters Type Date Location Provider Dx Diagnosis Office Visit 10/05/2020 3:30p Sunoladam Lema MD G56.03 Carpal tunnel syndrome, bilateral upper limbs Office Visit 09/23/2020 1:30p Sunoladam Taylor MD M48.02 Spinal stenosis, cervical region M47.892 Other spondylosis, cervical region M50.321 Other cervical disc degenera tion at C4-C5 level G56.03 Carpal tunnel syndrome, bila teral upper limbs M54.12 Radiculopathy, cervical becca on Office Visit 09/13/2020 11:00a Sunoldali Romero, P.A. M19.011 Primary osteoarthritis, right shoulder M19.012 Primary osteoarthritis, left shoulder M50.30 Other cervical disc degenera tion, unsp cervical region M51.36 Other intervertebral disc de generation, lumbar region Office Visit 06/17/2020 10:45a Taylor Lema MD G56.03 Carpal tunnel syndrome, bilateral upper limbs Office Visit 2020 11:15a Taylor Romero, P.A. M25.512 Pain in left shoulder M50.321 Other cervical disc degenera tion at C4-C5 level M50.322 Other cervical disc degenera tion at C5-C6 level M50.323 Other cervical disc degenera tion at C6-C7 level Assessments Date Code Description Provider 11/15/2020 Z20.828 Contact with and (benjamin spected) exposure to other viral communicable diseases Rohit Lema MD 11/15/2020 Z20.828 Contact with and (benjamin spected) exposure to other viral communicable diseases Lab 11/15/2020 Z01.818 Encounter for other preprocedura l examination Rohit Lema MD 11/15/2020 Z01.818 Encounter for other preprocedura l examination Lab 11/12/2020 Z20.828 Contact w and exposure to oth vi ral communicable diseases Rohit Lema MD 10/05/2020 G56.03 Carpal tunnel syndrome, bilatera l upper limbs Rohit Lema MD 09/23/2020 M48.02 Spinal stenosis, cervical region Guicho Taylor MD 09/23/2020 M47.892 Other spondylosis, cervical becca on Guicho Taylor MD 09/23/2020 M50.321 Other cervical disc degeneration at C4-C5 level Guicho Taylor MD 09/23/2020 G56.03 Carpal tunnel syndrome, bilatera l upper limbs Guicho Taylor MD 09/23/2020 M54.12 Radiculopathy, cervical region H alysia Taylor MD 09/13/2020 M19.011 Primary osteoarthritis, right sh oubhargaver Ronn Romero, P.A. 09/13/2020 M19.012 Primary osteoarthritis, left aliyah marcorobert Ronn Romero, P.A. 09/13/2020 M50.30 Other cervical disc degeneration , unspecified cervical region Ronn Romero, P.A. 09/13/2020 M51.36 Other intervertebral disc degene ration, lumbar region Ronn Romero, P.A. 06/17/2020 G56.03 Carpal tunnel syndrome, bilatera l upper limbs Rohit Lema MD 06/17/2020 G56.03 Carpal tunnel syndrome, bilatera l upper limbs Rohit Lema MD 06/16/2020 M75.41 Impingement syndrome of right sh arnaldo Ohara P.T. 06/16/2020 M75.42 Impingement syndrome of left aliyah roberto Tapia Lev P.T. 06/16/2020 M19.011 Primary osteoarthritis, right sh arnaldo Tapia Lev P.T. 06/16/2020 M19.012 Primary osteoarthritis, left aliyah roberto Tapia Lev P.T. 06/14/2020 M75.41 Impingement syndrome of right sh oulder Argenis Kary, P.T.A. 06/14/2020 M75.42 Impingement syndrome of left aliyah ulder Argenis Kary, P.T.A. 06/14/2020 M19.011 Primary osteoarthritis, right sh oulder Argenis Kary, P.T.A. 06/14/2020 M19.012 Primary osteoarthritis, left aliyah ulder Argenis Kary, P.T.A. 06/11/2020 M75.41 Impingement syndrome of right sh arnaldo Tapia Lev P.T. 06/11/2020 M75.42 Impingement syndrome of left aliyah roberto Tapia Lev P.T. 06/11/2020 M19.012 Primary osteoarthritis, left aliyah roberto Tapia Lev P.T. 06/11/2020 M19.011 Primary osteoarthritis, right sh arnaldo Tapia Lev P.T. 06/09/2020 M75.41 Impingement syndrome of right sh oulder Argenis Kary, P.T.A. 06/09/2020 M75.42 Impingement syndrome of left aliyah ulder Argenis Kary, P.T.A. 06/09/2020 M19.011 Primary osteoarthritis, right sh arnaldo Preston, P.T.A. 06/09/2020 M19.012 Primary osteoarthritis, left aliyah roberto Preston, P.T.A. 06/04/2020 M19.011 Primary osteoarthritis, right sh arnaldo Tapia Lev P.T. 06/04/2020 M19.012 Primary osteoarthritis, left aliyah roberto Tapia Lev P.T. 2020 M25.512 Pain in left shoulder Ronn Romero, P.A. 2020 M50.321 Other cervical disc degeneration at C4-C5 level Ronn Romero P.A. 2020 M50.322 Other cervical disc degeneration at C5-C6 level Ronn Romero, P.A. 2020 M50.323 Other cervical disc degeneration at C6-C7 level Ronn Romero, P.A. 05/31/2020 S52.572D Other intraarticular fracture of lower end of left radius, subsequent encounter for closed fracture with routine healing Godwin Ohara P.T. 05/27/2020 S52.572D Other intraarticular fracture of lower end of left radius, subsequent encounter for closed fracture with routine healing Godwin Ohara P.T. 05/25/2020 S52.572D Other intraarticular fracture of lower end of left radius, subsequent encounter for closed fracture with routine healing Godwin Ohara P.T. 05/19/2020 S52.572D Other intraarticular fracture of lower end of left radius, subsequent encounter for closed fracture with routine healing Godwin Ohara P.T. Plan of Treatment Future Appointment(s):* 12/08/2020 11:00 am - Toña Churchill MD at [facility] * 12/03/2020 4:00 pm - Rohit Lema MD at [facility] * 11/18/2020 11:55 am - Rohit Lema MD at Surgery [facility] 10/05/2020 - Rohit Lema MD* G56.03 Carpal tunnel syndrome, bilateral upper limbs* Follow up:* f/u post op Functional Status Description No Information Available Mental Status Description No Information Available Referrals Refer to Dr Reason for Referral Status Appt Date Ronn Romero PA SURGERY PER [employer] NO AU TH REQUIRED FOR CTR(70581) TO BE DONE HERE IN OUR [facility] TO SURGERY NT Created [address] [place] [address] [phone] Ronn Romero, PA AUTHORIZATION FOR OCCUPATION AL THERAPY EVALUATION [id number] [phone] [id number]. PATIENT GOING TO [facility]. PASSED TO CHART.HW Created [address] [place] [address] [phone] Ronn Romero, [place] Auth for physical therapy RE -Eval; [id number]. Patient coming here, passed to PT Dept. AC Created [address] [place] [address] [phone] Ronn Romero, PA EMG NO AUTH REQUIRED TO SCHEDULING NT Created [address] [place] [address] [phone]
--- OUTSIDE RECORDS SUMMARY | 2020-12-26 13:18 | CCD ---
Author Organization Unknown Address [address] [place] [address] Phone [phone] Care Team Providers Care Optical Glass Sawyer Name Role Phone [facility] [phone] Allergies None recorded. Medications Name Status Start Date Stop Date acetaminophen 300 mg-codeine 30 mg tablet Active 2020 Not available cefdinir 300 mg capsule Take 1 capsule every 12 hours by oral route as directed for 10 days. Active Not available cyclobenzaprine 10 mg tablet TAKE ONE TABLET BY MOUTH THREE TIMES A DAY NEEDED FOR SPASMS Active Not available dextromethorphan-guaifenesin ER 60 mg-1, 200 mg tab,extend release,12hr Take 1 tablet twice a day by oral route as needed for 7 days. Active Not available ergocalciferol (vitamin D2) 1,250 mcg (50,000 unit) capsule Acti ve Not available escitalopram 10 mg tablet Completed 2019 fluticasone propionate 50 mcg/actuation nasal spray,suspension Drayden 1 spray every day by intranasal route as needed. Active Not available gabapentin 100 mg capsule TAKE 1 3 CAPSULES BY MOUTH THREE TIMES A DAY NEEDED FOR PAIN Completed 09/06/2020 gabapentin 300 mg capsule TAKE ONE CAPSULE BY MOUTH EVERY MORNING AND 2 AT BEDTIME Active Not available nicotine 21 mg/24 hr daily transdermal p atch Apply 1 patch every day by transdermal route as directed. Active Not available oxycodone 15 mg tablet [...] Tobacco Dependence Caused by Cigarettes Active 03/24/20 19 History Dental Caries on Smooth Surface Penetrating into Pulp Active 06/13/2019 History Depressive Disorder Active 06/24/2019 History Hyperlipidemia Active 08/07/2019 History Acute Bronchitis Active 08/18/2019 History Vitamin D Deficiency Active 01/24/2020 History Moderate Recurrent Major Depression Active 06/25/2020 History Procedures Notes: leg sx Results Lab Results None recorded. Past Encounters 11/19/2020 Nicotine Dependence with Current Use; Acute Upper Respiratory Infection; Recurrent Major Depression CLAUDIA Puente-BC: [address] [place] [phone], Ph. 10/21/2020 Depressive Disorder; Major Depressive Disorder; Recurrent Major Depression Shiv Gonzalez MD: [address] [place] [phone], Ph. 09/06/2020 Moderate Recurrent Major Depression Shiv Gonzalez MD: [address] [place] [phone], Ph. Social History Tobacco Smoking Status Heavy Tobacco Smoker (1 PPD) Vaccine List None recorded. Plan of Care Reminders Provider Appointments None recorded. Lab None recorded. Referral None recorded. Procedures None recorded. Surgeries None recorded. Imaging None recorded. Vitals 11/19/2020 03:00PM SAME DAY 20 Height Weight [...]
--- OUTSIDE RECORDS SUMMARY | 2020-12-26 13:18 | CCD | Continuity of Care Document ---
Author Author Elvis POON MD Organization Unknown Address [address] [place] [address], [facility] [address] [place] [address] Phone [phone] Care Team Providers Care Production Painter Name Role Phone Niles Cline MD AUTM Patricio Gonzalez MD AUTM [phone] [facility] Physical Therdomingo Sethi AUTM Problems Description No Information Available [...] NEGATIVE Procedures Date Code Description Status 09/23/2020 72305 Nerve Conduction 13+ Studies Com pleted 09/23/2020 79501 Needle Electromyography,Complete Five Or More Muscles Studied Completed 06/16/2020 53874 Therapeutic Procedure, Each 15 M inutes Completed 06/14/2020 00310 Therapeutic Procedure, Each 15 M inutes Completed 06/14/2020 83392 Ultrasound, Each 15 Min, Constan t Attendance Completed 06/11/2020 58373 Therapeutic Procedure, Each 15 M inutes Completed 06/11/2020 73269 Therapeutic Procedure, Each 15 M inutes Completed 06/09/2020 20028 Therapeutic Procedure, Each 15 M inutes Completed 06/09/2020 11621 Ultrasound, Each 15 Min, Constan t Attendance Completed 06/04/2020 51773 Therapeutic Procedure, Each 15 M inutes Completed 05/31/2020 97953 Therapeutic Procedure, Each 15 M inutes Completed 05/31/2020 90932 Therapeutic Procedure, Each 15 M inutes Completed 05/27/2020 22646 Therapeutic Procedure, Each 15 M inutes Completed 05/27/2020 57709 Therapeutic Procedure, Each 15 M inutes Completed 05/25/2020 79443 Therapeutic Procedure, Each 15 M inutes Completed 05/25/2020 52958 Therapeutic Procedure, Each 15 M inutes Completed 05/19/2020 70378 Therapeutic Procedure, Each 15 M inutes Completed 05/19/2020 32372 Therapeutic Procedure, Each 15 M inutes Completed Medical Devices Description No Information Available Encounters Type Date Location Provider Dx Diagnosis Office Visit 10/05/2020 3:30p Taylor Poon MD G56.03 Carpal tunnel syndrome, bilateral upper limbs Office Visit 09/23/2020 1:30p [facility] Taylor MD M48.02 Spinal stenosis, cervical region M47.892 Other spondylosis, cervical region M50.321 Other cervical disc degenera tion at C4-C5 level G56.03 Carpal tunnel syndrome, bila teral upper limbs M54.12 Radiculopathy, cervical becca on Office Visit 09/13/2020 11:00a Taylor Romero, P.A. M19.011 Primary osteoarthritis, right shoulder M19.012 Primary osteoarthritis, left shoulder M50.30 Other cervical disc degenera tion, unsp cervical region M51.36 Other intervertebral disc de generation, lumbar region Office Visit 06/17/2020 10:45a Taylor Poon MD G56.03 Carpal tunnel syndrome, bilateral upper limbs Office Visit 2020 11:15a Graham[facility] Romero, P.A. M25.512 Pain in left shoulder M50.321 Other cervical disc degenera tion at C4-C5 level M50.322 Other cervical disc degenera tion at C5-C6 level M50.323 Other cervical disc degenera tion at C6-C7 level Assessments Date Code Description Provider 11/12/2020 Z20.828 Contact w and exposure to oth vi ral communicable diseases Rohit Poon MD 10/05/2020 G56.03 Carpal tunnel syndrome, bilatera l upper limbs Rohit Poon MD 09/23/2020 M48.02 Spinal stenosis, cervical region Guicho Taylor MD 09/23/2020 M47.892 Other spondylosis, cervical becca on Guicho Taylor MD 09/23/2020 M50.321 Other cervical disc degeneration at C4-C5 level Guicho Taylor MD 09/23/2020 G56.03 Carpal tunnel syndrome, bilatera l upper limbs Guicho Taylor MD 09/23/2020 M54.12 Radiculopathy, cervical region H alysia Taylor MD 09/13/2020 M19.011 Primary osteoarthritis, right sh oulder Ronn Romero, P.A. 09/13/2020 M19.012 Primary osteoarthritis, left aliyah roberto Ronn Romero, P.A. 09/13/2020 M50.30 Other cervical disc degeneration , unspecified cervical region Ronn Romero, P.A. 09/13/2020 M51.36 Other intervertebral disc degene ration, lumbar region Ronn Romero, P.A. 06/17/2020 G56.03 Carpal tunnel syndrome, bilatera l upper limbs Rohit Poon MD 06/17/2020 G56.03 Carpal tunnel syndrome, bilatera l upper limbs Rohit Poon MD 06/16/2020 M75.41 Impingement syndrome of right sh arnaldo Ohara P.T. 06/16/2020 M75.42 Impingement syndrome of left aliyah roberto Ohara P.T. 06/16/2020 M19.011 Primary osteoarthritis, right sh arnaldo Ohara P.T. 06/16/2020 M19.012 Primary osteoarthritis, left aliyah roberto hOara P.T. 06/14/2020 M75.41 Impingement syndrome of right sh oulder Argenis Kary, P.T.A. 06/14/2020 M75.42 Impingement syndrome of left aliyah ulder Argenis Kary, P.T.A. 06/14/2020 M1.011 Primary osteoarthritis, right sh oulder Argenis Kary, P.T.A. 06/14/2020 M19.012 Primary osteoarthritis, left aliyah ulder Argenis Kary, P.T.A. 06/11/2020 M75.41 Impingement syndrome of right sh arnaldo Ohara P.T. 06/11/2020 M75.42 Impingement syndrome of left aliyah roberto Ohara P.T. 06/11/2020 M19.012 Primary osteoarthritis, left aliyah roberto Ohara P.T. 06/11/2020 M19.011 Primary osteoarthritis, right sh arnaldo Ohara P.T. 06/09/2020 M75.41 Impingement syndrome of right sh oulder Argenis Kary, P.T.A. 06/09/2020 M75.42 Impingement syndrome of left aliyah ulder Argenis Kary, P.T.A. 06/09/2020 M19.011 Primary osteoarthritis, right sh oulder Argenis Kary, P.T.A. 06/09/2020 M1.012 Primary osteoarthritis, left aliyah ulder Argenis Kary, P.T.A. 06/04/2020 M19.011 Primary osteoarthritis, right sh arnaldo Tapia Lev P.T. 06/04/2020 M19.012 Primary osteoarthritis, left aliyah ulder Godwin Ohara P.T. 2020 M25.512 Pain in left shoulder Navin BojorquezAMandy 2020 M50.321 Other cervical disc degeneration at C4-C5 level Mari Bojorquez.A. 2020 M50.322 Other cervical disc degeneration at C5-C6 level Mari Bojorquez.AMandy 2020 M50.323 Other cervical disc degeneration at C6-C7 level Ronn Romero P.A. 05/31/2020 S52.572D Other intraarticular fracture of [...] 11:00 am - Toña Churchill MD at [facility] * 12/03/2020 4:00 pm - Rohit Poon MD at [facility] * 11/18/2020 11:55 am - Rohit Poon MD at Surgery [facility] 10/05/2020 - Rohit Poon MD* G56.03 Carpal tunnel syndrome, bilateral upper limbs* Follow up:* f/u post op Functional Status Description No Information Available Mental Status Description No Information Available Referrals Refer to Dr Reason for Referral Status Appt Date Ronn Romero PA SURGERY PER [employer] WE[employer] NO AU TH REQUIRED FOR CTR(98196) TO BE DONE HERE IN [facility] TO SURGERY NT Created [address] [place] [address] [address] [place] [address] [phone] Ronn Romero PA AUTHORIZATION FOR OCCUPATION AL THERAPY EVALUATION [id number]. PATIENT GOING TO [facility]. PASSED TO CHART.HW Created [facility] [place] [address] [phone] Ronn Romero PA Auth for physical therapy RE -Eval; [id number]. Patient coming here, passed to PT Dept. AC Created [facility] [place] [address] [phone] Ronn Romero PA EMG NO AUTH REQUIRED TO SCHEDULING NT Created [facility] [place] [address] [phone]
--- OUTSIDE RECORDS SUMMARY | 2020-12-26 13:19 | CCD | Continuity of Care Document ---
Author Author Elvis POON MD Organization Unknown Address [address] [place] [address], [facility] e [address] [place] [address] Phone [phone] Care Team Providers Care Knuckle Strap Sewer Name Role Phone Niles Cline MD AUTM Patricio Gonzalez MD AUTM [phone] [facility] Physical Therdomingo Sethi AUTM Problems Description No [...] Date Facility Test Result H/L Range Note Order 10/06/2020 [facility] [address] [facility] [address] [place] [address] Surgery <pending> Procedures Date Code Description Status 09/23/2020 74769 Nerve Conduction 13+ Studies Com pleted 09/23/2020 83871 Needle Electromyography,Complete Five Or More Muscles Studied Completed 06/16/2020 63977 Therapeutic Procedure, Each 15 M inutes Completed 06/14/2020 71652 Therapeutic Procedure, Each 15 M inutes Completed 06/14/2020 73642 Ultrasound, Each 15 Min, Constan t Attendance Completed 06/11/2020 23005 Therapeutic Procedure, Each 15 M inutes Completed 06/11/2020 43527 Therapeutic Procedure, Each 15 M inutes Completed 06/09/2020 72311 Therapeutic Procedure, Each 15 M inutes Completed 06/09/2020 39959 Ultrasound, Each 15 Min, Constan t Attendance Completed 06/04/2020 40267 Therapeutic Procedure, Each 15 M inutes Completed 05/31/2020 39630 Therapeutic Procedure, Each 15 M inutes Completed 05/31/2020 52792 Therapeutic Procedure, Each 15 M inutes Completed 05/27/2020 01623 Therapeutic Procedure, Each 15 M inutes Completed 05/27/2020 94441 Therapeutic Procedure, Each 15 M inutes Completed 05/25/2020 54467 Therapeutic Procedure, Each 15 M inutes Completed 05/25/2020 18585 Therapeutic Procedure, Each 15 M inutes Completed 05/19/2020 78063 Therapeutic Procedure, Each 15 M inutes Completed 05/19/2020 18247 Therapeutic Procedure, Each 15 M inutes Completed 05/05/2020 18421 Physical Therapy Eval - Low Comp lexity Completed 05/03/2020 06498 Physical Therapy Eval - Low Comp lexity Completed 04/23/2020 31597 X-Ray Shoulder Complete Complete d 04/23/2020 45350 X-Ray Shoulder Complete Complete d 04/19/2020 28594 X-Ray Wrist Ap & Lateral 2 Views Completed Medical Devices Description No Information Available Encounters Type Date Location Provider Dx Diagnosis Office Visit 10/05/2020 3:30p Taylor Poon MD G56.03 Carpal tunnel syndrome, bilateral upper limbs Office Visit 09/23/2020 1:30p [place] a[place]yl[place] MD M48.02 Spinal stenosis, cervical region M47.892 Other spondylosis, cervical region M50.321 Other cervical disc degenera tion at C4-C5 level G56.03 Carpal tunnel syndrome, bila teral upper limbs M54.12 Radiculopathy, cervical becca on Office Visit 09/13/2020 11:00a [place] Ronn Romero, P.A. M19.011 Primary osteoarthritis, right shoulder M19.012 Primary osteoarthritis, left shoulder M50.30 Other cervical disc degenera tion, unsp cervical region M51.36 Other intervertebral disc de generation, lumbar region Office Visit 06/17/2020 10:45a [place] Rohit Poon MD G56.03 Carpal tunnel syndrome, bilateral upper limbs Office Visit 2020 11:15a [place] Ronn Romero, P.A. M25.512 Pain in left shoulder M50.321 Other cervical disc degenera tion at C4-C5 level M50.322 Other cervical disc degenera tion at C5-C6 level M50.323 Other cervical disc degenera tion at C6-C7 level Office Visit 04/23/2020 2:00p [place] Ronn Romero, P.A. M19.011 Primary osteoarthritis, right shoulder M19.012 Primary osteoarthritis, left shoulder Z79.891 [facility] (current) use of o piate analgesic Office Visit 04/19/2020 1:45p [place] Cage Mike Cline MD S5 2.572D Oth intartic fx low end l rad, subs for clos fx w routn heal Assessments Date Code Description Provider 10/05/2020 G56.03 Carpal tunnel syndrome, bilatera l [...] MD 09/13/2020 M19.011 Primary osteoarthritis, right sh arnaldo Brody Tin Romero, P.A. 09/13/2020 M19.012 Primary osteoarthritis, left [...] MD 06/16/2020 M75.41 Impingement syndrome of right arnaldo Tapia Lev P.T. 06/16/2020 M75.42 Impingement syndrome of left aliyah roberto Tapia Lev P.T. 06/16/2020 M19.011 Primary osteoarthritis, right sh arnaldo Tapia Lev P.T. 06/16/2020 M19.012 Primary osteoarthritis, left aliyah roberto Tapia Lev P.T. 06/14/2020 M75.41 Impingement syndrome of right arnaldo Willsoning, P.T.A. 06/14/2020 M75.42 Impingement syndrome of left aliyah roberto Steene Kary, P.T.A. 06/14/2020 M19.011 Primary osteoarthritis, right sh arnaldo Argenis Kary, P.T.A. 06/14/2020 M19.012 Primary osteoarthritis, left aliyah roberto Hallerie Kary, P.T.A. 06/11/2020 M75.41 Impingement syndrome of right arnaldo Tapia Lev P.T. 06/11/2020 M75.42 Impingement syndrome of left aliyah Tapia Lev P.T. 06/11/2020 M19.012 Primary osteoarthritis, left aliyah roberto Tapia Lev P.T. 06/11/2020 M19.011 Primary osteoarthritis, right sh arnaldo Tapia Lev P.T. 06/09/2020 M75.41 Impingement syndrome of right sh arnaldo Preston, P.T.A. 06/09/2020 M75.42 Impingement syndrome of left aliyah roberto Preston, P.T.A. 06/09/2020 M19.011 Primary osteoarthritis, right sh arnaldo Preston, P.T.A. 06/09/2020 M19.012 Primary osteoarthritis, left aliyah roberto Preston, P.T.A. 06/04/2020 M19.011 Primary osteoarthritis, right sh arnaldo Tapia Lev P.T. 06/04/2020 M19.012 Primary osteoarthritis, left alyiah roberto Tapia Lev P.T. 2020 M25.512 Pain in left shoulder Ronn Romero, P.A. 2020 M50.321 Other cervical disc degeneration at C4-C5 level Ronn Romero, P.A. 2020 M50.322 Other cervical disc degeneration [...] fracture with routine healing Godwin Ohara P.T. 05/05/2020 S52.572D Other intraarticular fracture of lower end of left radius, subsequent encounter for closed fracture with routine healing Godwin Ohara P.T. 05/03/2020 M75.41 Impingement syndrome of right sh arnaldo Ohara P.T. 05/03/2020 M75.42 Impingement syndrome of left aliyah roberto Ohara P.T. 05/03/2020 M19.011 Primary osteoarthritis, right sh arnaldo Ohara P.T. 05/03/2020 M19.012 Primary osteoarthritis, left aliyah roberto Ohara P.T. 04/23/2020 M19.011 Primary osteoarthritis, right sh arnaldo Brody ValerieMandy Nick, P.A. 04/23/2020 M19.012 Primary osteoarthritis, left aliyah roberto Ronn Romero, P.A. 04/23/2020 Z79.891 [employer] (current) use of opiat e analgesic Ronn Romero, P.A. 04/19/2020 S52.572D Other intraarticular fracture of lower end of left radius, subsequent encounter for closed fracture with routine healing Niles Cline MD Plan of Treatment 10/05/2020 - Rohit Poon MD* G56.03 Carpal tunnel syndrome, bilateral upper limbs* Follow up:* f/u post op Functional Status Description No Information Available Mental Status Description No Information Available Referrals Refer to Dr Reason for Referral Status Appt Date Ronn Romero PA SURGERY PER [employer] NO AU TH REQUIRED FOR CTR(94472) TO BE DONE HERE IN [facility] TO SURGERY NT Created [address] [place] [address] [phone] Ronn Romero PA AUTHORIZATION FOR OCCUPATION AL THERAPY EVALUATION 63401 [id number] [phone]. PATIENT GOING TO [facility]. PASSED TO CHART.HW Created [facility] [place] [address] [phone] Ronn Romero PA Auth for physical therapy RE -Eval; 81550. Patient coming here, passed to PT Dept. AC Created [address] [place] [address] [phone] Ronn Romero PA EMG NO AUTH REQUIRED TO SCHEDULING NT Created [address] [place] [id number] [phone] Ronn Romero PA PT EVAL [id number], LULU Jasso SHOULDERKrystina, APPROVED AUTH [id number], RAMANA DELEON 07-25-2020, [facility] PT DEPT..LD Created [facility] [place] [id number] [phone]
--- OUTSIDE RECORDS SUMMARY | 2020-12-26 13:19 | CCD | Continuity of Care Document ---
Author Author Elvis POON MD Organization Unknown Address [address] [place] [address], it e [address] [place] [address] Phone [phone] Care Team Providers Care Egg Smeller Name Role Phone Niles Cline MD AUTM [phone] Patricio Gonzalez MD AUTM [phone] Problems Description No Information Available Social History [...] BMI (Body Mass Index) 23.0 kg/m2 Results Description No Information Available Procedures Date Code Description Status 09/23/2020 84841 Nerve Conduction 13+ Studies Com pleted 09/23/2020 48893 Needle Electromyography,Complete Five Or More Muscles Studied Completed 06/16/2020 58069 Therapeutic Procedure, Each 15 M inutes Completed 06/14/2020 92863 Therapeutic Procedure, Each 15 M inutes Completed 06/14/2020 74587 Ultrasound, Each 15 Min, Constan t Attendance Completed 06/11/2020 24898 Therapeutic Procedure, Each 15 M inutes Completed 06/11/2020 87977 Therapeutic Procedure, Each 15 M inutes Completed 06/09/2020 40929 Therapeutic Procedure, Each 15 M inutes Completed 06/09/2020 04338 Ultrasound, Each 15 Min, Constan t Attendance Completed 06/04/2020 19184 Therapeutic Procedure, Each 15 M inutes Completed 05/31/2020 36866 Therapeutic Procedure, Each 15 M inutes Completed 05/31/2020 30360 Therapeutic Procedure, Each 15 M inutes Completed 05/27/2020 73755 Therapeutic Procedure, Each 15 M inutes Completed 05/27/2020 92908 Therapeutic Procedure, Each 15 M inutes Completed 05/25/2020 34669 Therapeutic Procedure, Each 15 M inutes Completed 05/25/2020 95565 Therapeutic Procedure, Each 15 M inutes Completed 05/19/2020 77925 Therapeutic Procedure, Each 15 M inutes Completed 05/19/2020 04484 Therapeutic Procedure, Each 15 M inutes Completed 05/05/2020 47125 Physical Therapy Eval - Low Comp lexity Completed 05/03/2020 74463 Physical Therapy Eval - Low Comp lexity Completed 04/23/2020 58617 X-Ray Shoulder Complete Complete d 04/23/2020 28251 X-Ray Shoulder Complete Complete d 04/19/2020 18430 X-Ray Wrist Ap & Lateral 2 Views Completed Medical Devices Description No Information Available Encounters Type Date Location Provider Dx Diagnosis Office Visit 10/05/2020 3:30p [place] Poon MD M48.02 Spinal stenosis, cervical region M47.892 Other spondylosis, cervical region M50.321 Other cervical disc degenera tion at C4-C5 level M54.12 Radiculopathy, cervical becca on G56.02 Carpal tunnel syndrome, left upper limb G56.01 Carpal tunnel syndrome, righ t upper limb Office Visit 09/23/2020 1:30p Taylor Taylor MD M48.02 Spinal stenosis, cervical region M47.892 Other spondylosis, cervical region M50.321 Other cervical disc degenera tion at C4-C5 level M54.12 Radiculopathy, cervical becca on G56.03 Carpal tunnel syndrome, bila teral upper limbs Office Visit 09/13/2020 11:00a [place] Romero, P.A. M19.011 Primary osteoarthritis, right shoulder M19.012 Primary osteoarthritis, left shoulder M50.30 Other cervical disc degenera tion, unsp cervical region M51.36 Other intervertebral disc de generation, lumbar region Office Visit 06/17/2020 10:45a [place] Poon MD G56.03 Carpal tunnel syndrome, bilateral upper limbs Office Visit 2020 11:15a Tracyadam Romero, P.A. M25.512 Pain in left shoulder M50.321 Other cervical disc degenera tion at C4-C5 level M50.322 Other cervical disc degenera tion at C5-C6 level M50.323 Other cervical disc degenera tion at C6-C7 level Office Visit 04/23/2020 2:00p [place] Ronn Romero, P.A. M19.011 Primary osteoarthritis, right shoulder M19.012 Primary osteoarthritis, left shoulder Z79.891 correction (current) use of o piate analgesic Office Visit 04/19/2020 1:45p [place] Mike Cline MD S5 2.572D Oth intartic fx low end l rad, subs for clos fx w routn heal Assessments Date Code Description Provider 10/05/2020 M48.02 Spinal stenosis, cervical region Rohit Poon MD 10/05/2020 M47.892 Other spondylosis, cervical becca on Rohit Poon MD 10/05/2020 M50.321 Other cervical disc degeneration at C4-C5 level Rohit Poon MD 10/05/2020 M54.12 Radiculopathy, cervical region S oli Poon MD 10/05/2020 G56.02 Carpal tunnel syndrome, left upp er limb Rohit Poon MD 10/05/2020 G56.01 Carpal tunnel syndrome, right up per limb Rohit Poon MD 09/23/2020 M48.02 Spinal stenosis, cervical region Guicho Taylor MD 09/23/2020 M47.892 Other spondylosis, cervical becca on Guicho Taylor MD 09/23/2020 M50.321 Other cervical disc degeneration at C4-C5 level Guicho Taylor MD 09/23/2020 M54.12 Radiculopathy, cervical region H alysia Taylor MD 09/23/2020 G56.03 Carpal tunnel syndrome, bilatera l upper limbs Guicho Taylor MD 09/13/2020 M19.011 Primary osteoarthritis, right arnaldo Ronn Romero, P.A. 09/13/2020 M19.012 Primary osteoarthritis, [...] 06/16/2020 M75.41 Impingement syndrome of right arnaldo RyanMandy Ohara P.T. 06/16/2020 M75.42 Impingement syndrome of left aliyah roberto RyanMandy Ohara P.T. 06/16/2020 M19.011 Primary osteoarthritis, right sh arnaldo RyanMandy Ohara P.T. 06/16/2020 M19.012 Primary osteoarthritis, left aliyah roberto RyanMandy Ohara P.T. 06/14/2020 M75.41 Impingement syndrome of right sh arnaldo More Kary, P.T.A. 06/14/2020 M75.42 Impingement syndrome of left aliyah roberto Hallerie Kary, P.T.A. 06/14/2020 M19.011 Primary osteoarthritis, right sh arnaldo Hallremedios Preston, P.T.A. 06/14/2020 M19.012 Primary osteoarthritis, left aliyah roberto Hallerie Kary, P.T.A. 06/11/2020 M75.41 Impingement syndrome of right sh arnaldo Ohara P.T. 06/11/2020 M75.42 Impingement syndrome of left aliyah roberto Ohara P.T. 06/11/2020 M19.012 Primary osteoarthritis, left aliyah roberto Ohara P.T. 06/11/2020 M19.011 Primary osteoarthritis, right sh arnaldo Ohara P.T. 06/09/2020 M75.41 Impingement syndrome of right sh shiloher Argenis Kary, P.T.A. 06/09/2020 M75.42 Impingement syndrome of left aliyah roberto Argenis Kary, P.T.A. 06/09/2020 M19.011 Primary osteoarthritis, right sh shiloher Argenis Kary, P.T.A. 06/09/2020 M19.012 Primary osteoarthritis, left aliyah roberto Steene Kary, P.T.A. 06/04/2020 M19.011 Primary osteoarthritis, right sh arnaldo Ohara P.T. 06/04/2020 M19.012 Primary osteoarthritis, left aliyah roberto Ohara P.T. 2020 M25.512 Pain in left [...] 05/03/2020 M75.41 Impingement syndrome of right sh shiloher Godwin Ohara P.T. 05/03/2020 M75.42 Impingement syndrome of left aliyah roberto Ohara P.T. 05/03/2020 M19.011 Primary osteoarthritis, right sh arnaldo Tapia Lev P.T. 05/03/2020 M19.012 Primary osteoarthritis, left aliyah roberto Tapia Lev P.T. 04/23/2020 M19.011 Primary osteoarthritis, right sh arnaldo Ronn Romero, P.A. 04/23/2020 M19.012 Primary osteoarthritis, left aliyah roberto Ronn Romero, P.A. 04/23/2020 Z79.891 correction (current) use of opiat e analgesic Ronn Romero, P.A. 04/19/2020 S52.572D Other intraarticular fracture of lower end of left radius, subsequent encounter for closed fracture with routine healing Niles Cline MD Plan of Treatment No Information Available Functional Status Description No Information Available Mental Status Description No Information Available Referrals Refer to Dr Reason for Referral Status Appt Date Ronn Romero PA AUTHORIZATION FOR OCCUPATION AL THERAPY EVALUATION [id number] [phone]. PATIENT GOING TO [facility]. PASSED TO CHART. Created [facility] [place] [id number] [phone] Ronn Romero PA Auth for physical therapy RE -Eval; 24102. Patient coming here, passed to PT Dept. AC Created [facility] [place] [id number] [phone] Ronn Romero, SPIKE EMG NO AUTH REQUIRED TO SCHEDULING NT Created [address] [place] [address] [phone] Ronn Romero, SPIKE PT EVAL [phone], BI L SHOULDERS, APPROVED AUTH [id number], AUTH [employer] 07-25-2020, [facility] PT DEPT..LD Created [address] [place] [address] [phone]
--- OUTSIDE RECORDS SUMMARY | 2020-12-26 13:19 | CCD | Continuity of Care Document ---
Author Elvis Ramirez V Organization Unknown Address [address] [facility] [address] [place] [address] Phone [phone] Care Team Providers Care Color Matcher Name Role Phone Niles Cline MD AUTM Patricio Gonzalez MD AUTM [phone] [facility] Physical Thera Valarie Sethi AUTM [phone] Problems Description No Information Available Social History [...] finding 11/12/2020 In House Covid Rapid Testing <pending> Procedures Date Code Description Status 09/23/2020 38894 Nerve Conduction 13+ Studies Com pleted 09/23/2020 23584 Needle Electromyography,Complete Five Or More Muscles Studied Completed 06/16/2020 90680 Therapeutic Procedure, Each 15 M inutes Completed 06/14/2020 02055 Therapeutic Procedure, Each 15 M inutes Completed 06/14/2020 47641 Ultrasound, Each 15 Min, Constan t Attendance Completed 06/11/2020 92407 Therapeutic Procedure, Each 15 M inutes Completed 06/11/2020 34364 Therapeutic Procedure, Each 15 M inutes Completed 06/09/2020 19901 Therapeutic Procedure, Each 15 M inutes Completed 06/09/2020 63056 Ultrasound, Each 15 Min, Constan t Attendance Completed 06/04/2020 32206 Therapeutic Procedure, Each 15 M inutes Completed 05/31/2020 13306 Therapeutic Procedure, Each 15 M inutes Completed 05/31/2020 61283 Therapeutic Procedure, Each 15 M inutes Completed 05/27/2020 63638 Therapeutic Procedure, Each 15 M inutes Completed 05/27/2020 80780 Therapeutic Procedure, Each 15 M inutes Completed 05/25/2020 90887 Therapeutic Procedure, Each 15 M inutes Completed 05/25/2020 84404 Therapeutic Procedure, Each 15 M inutes Completed 05/19/2020 97153 Therapeutic Procedure, Each 15 M inutes Completed 05/19/2020 02766 Therapeutic Procedure, Each 15 M inutes Completed Medical Devices Description No Information Available Encounters Type Date Location Provider Dx Diagnosis Office Visit 10/05/2020 3:30p Taylor Lema MD G56.03 Carpal tunnel syndrome, bilateral upper limbs Office Visit 09/23/2020 1:30p [place] Taylor MD M48.02 Spinal stenosis, cervical region M47.892 Other spondylosis, cervical region M50.321 Other cervical disc degenera tion at C4-C5 level G56.03 Carpal tunnel syndrome, bila teral upper limbs M54.12 Radiculopathy, cervical becca on Office Visit 09/13/2020 11:00a [place] Romero, P.A. M19.011 Primary osteoarthritis, right shoulder M19.012 Primary osteoarthritis, left shoulder M50.30 Other cervical disc degenera tion, unsp cervical region M51.36 Other intervertebral disc de generation, lumbar region Office Visit 06/17/2020 10:45a Taylor Lema MD G56.03 Carpal tunnel syndrome, bilateral upper limbs Office Visit 2020 11:15a [place] Rom[place], P.A. M25.512 Pain in left shoulder [...] MD 09/13/2020 M19.011 Primary osteoarthritis, right sh johnathanlder Ronn Romero, P.A. 09/13/2020 M19.012 Primary osteoarthritis, [...] 06/16/2020 M19.012 Primary osteoarthritis, left aliyah roberto Ohara P.T. 06/14/2020 M75.41 Impingement syndrome of [...] M19.012 Primary osteoarthritis, left aliyah roberto Tapia Cook P.T. 2020 M25.512 Pain in left shoulder Navin BojorquezAMandy 2020 M50.321 Other cervical disc degeneration at C4-C5 level Mari Bojorquez.A. 2020 M50.322 Other cervical disc degeneration at C5-C6 level Mari Bojorquez.A. 2020 M50.323 Other cervical disc degeneration at [...] 11:00 am - Toña Churchill MD at [facility] * 12/03/2020 4:00 pm - Rohit Lema MD at [facility] * 11/18/2020 11:55 am - Rohit Lema MD at Surgery [facility] 10/05/2020 - Rohit Lema MD* G56.03 Carpal tunnel syndrome, bilateral upper limbs* Follow up:* f/u post op Functional Status Description No Information Available Mental Status Description No Information Available Referrals Refer to Dr Reason for Referral Status Appt Date Ronn Romero PA SURGERY PER [employer] WEB NO AU TH REQUIRED FOR CTR(76550) TO BE DONE HERE IN OUR [facility] TO SURGERY NT Created [facility] [address] [place] [address] [phone] Ronn Romero PA AUTHORIZATION FOR OCCUPATION AL THERAPY EVALUATION 35194 [id number] [phone]. PATIENT GOING TO [facility]. PASSED TO CHART.HW Created [facility] [place] [address] [phone] Ronn Romero PA Auth for physical therapy RE -Eval; 07350. Patient coming here, passed to PT Dept. AC Created [facility] [place] [address] [phone] Ronn Romero PA EMG NO AUTH REQUIRED TO SCHEDULING NT Created [facility] [place] [address] [phone]
--- OUTSIDE RECORDS SUMMARY | 2020-12-26 13:19 | CCD ---
Author Organization Unknown Address [address] [place] [address] Phone [phone] Care Team Providers Care Firebreak Cutter Name Role Phone Lisa Patricio Unavailable Unavailable Allergies None recorded. Medications Name Status Start Date Stop Date cyclobenzaprine 10 mg tablet TAKE ONE TABLET BY MOUTH THREE TIMES A DAY NEEDED FOR SPASMS Active Not available escitalopram 10 mg tablet Completed 2019 gabapentin 100 mg capsule TAKE 1 3 CAPSULES BY MOUTH THREE TIMES A DAY NEEDED FOR PAIN Completed 09/06/2020 gabapentin 300 mg capsule TAKE ONE CAPSULE BY MOUTH EVERY MORNING AND 2 AT BEDTIME Active Not available oxycodone 15 mg tablet TAKE ONE TABLET BY MOUTH EVERY 4 HOURS NEEDED FOR PAIN MAXIMUM DAILY DOSE 6 TABLETS Active Not available oxycodone-acetaminophen 5 mg-325 mg tabl et TAKE ONE TABLET BY MOUTH EVERY 6 HOURS NEEDED FOR POST OP PAIN MAXIMUM DAILY DOSE FOUR TABLETS Active Not available polyethylene glycol 3350 17 gram/dose or al powder 17 GRAMS MIXED IN 8 OUNCES OF FLUID TO BE TAKEN BY MOUTH ONCE DAILY NEEDED CONSTIPATION Active Not available Senexon-S 8.6 mg-50 mg tablet TAKE TWO TABLETS BY MOUTH TWICE A DAY Active N ot available tizanidine 4 mg tablet Active Not avail able venlafaxine ER 150 mg capsule,extended r elease 24 hr TAKE 2 CAPSULE BY MOUTH EVERY DAY Active Not a vailable venlafaxine ER 75 mg capsule,extended release 24 hr Active Not available Vitamin D2 1,250 mcg (50,000 unit) capsu le TAKE ONE CAPSULE BY MOUTH EVERY WEEK FOR 12 WEEKS Active Not available Problems Name Status Onset Date Source Low [...] Results Lab Results None recorded. Past Encounters 10/21/2020 Depressive Disorder; Major Depressive Disorder; Recurrent Major Depression Shiv Gonzalez MD: [address] [place] [address], Ph. 09/06/2020 Moderate Recurrent Major Depression Shiv Gonzalez MD: [address] [place] [address], Ph. Social History Tobacco Smoking Status Heavy Tobacco Smoker (1 PPD) Vaccine List None recorded. Plan of Care Reminders Provider Appointments None recorded. Lab None recorded. Referral None recorded. Procedures None recorded. Surgeries None recorded. Imaging None recorded. Vitals 10/21/2020 09:00AM TELEPSYCH 30 Height Weight BMI [...]
--- OUTSIDE RECORDS SUMMARY | 2020-12-26 13:20 | CCD ---
Author Author [facility] Organization [facility] Address Unknown Phone Unavailable Care Team Providers Care Forensics Analyst Name Role Phone Cathy Gonzalez MD Unavailable Unavailable Cathy Gonzalez MD Unavailable Unavailable Cathy Gonzalez MD Unavailable Unavailable Cathy Gonzalez MD Unavailable Unavailable Cathy Gonzalez MD Unavailable Unavailable Cathy Gonzalez MD Unavailable Unavailable Cathy Gonzalez MD Unavailable Unavailable Cathy Gonzalez MD Unavailable Unavailable Cathy Gonzalez MD Unavailable Unavailable Cathy Gonzalez MD Unavailable Unavailable Cathy Gonzalez MD Unavailable Unavailable Cathy Gonzalez MD Unavailable Unavailable Cathy Gonzalez MD Unavailable Unavailable Cathy Gonzalez MD Unavailable Unavailable Cathy Gonzalez MD Unavailable Unavailable Cathy Gonzalez MD Unavailable Unavailable Cathy Gonzalez MD Unavailable Unavailable Cathy Gonzalez MD Unavailable Unavailable Cathy Gonzalez MD Unavailable Unavailable Cathy Gonzalez MD Unavailable Unavailable Cathy Gonzalez MD Unavailable Unavailable Cathy Gonzalez MD Unavailable Unavailable Cathy Gonzalez MD Unavailable Unavailable Cathy Gonzalez MD Unavailable Unavailable Cathy Gonzalez MD Unavailable Unavailable Cathy Gonzalez MD Unavailable Unavailable Cathy Gonzalez MD Unavailable Unavailable Cathy Gonzalez MD Unavailable Unavailable Cathy Gonzalez MD Unavailable Unavailable Cathy Gonzalez MD Unavailable Unavailable Cathy Gonzalez MD Unavailable Unavailable Cathy Gonzalez MD Unavailable Unavailable Cathy Gonzalez MD Unavailable Unavailable Cathy Gonzalez MD Unavailable Unavailable Cathy Gonzalez MD Unavailable Unavailable Cathy Gonzalez MD Unavailable Unavailable Cathy Gonzalez MD Unavailable Unavailable Cathy Gonzalez MD Unavailable Unavailable Cathy Gonzalez MD Unavailable Unavailable Cathy Gonzalez MD Unavailable Unavailable Cathy Gonzalez MD Unavailable Unavailable Cathy Gonzalez MD Unavailable Unavailable Cathy Gonzalez MD Unavailable Unavailable Cathy Gonzalez MD Unavailable Unavailable Cathy Gonzalez MD Unavailable Unavailable Cathy Gonzalez MD Unavailable Unavailable Cathy Gonzalez MD Unavailable Unavailable Cathy Gonzalez MD Unavailable Unavailable Cathy Gonzalez MD Unavailable Unavailable Cathy Gonzalez MD Unavailable Unavailable Cathy Gonzalez MD Unavailable Unavailable Cathy Gonzalez MD Unavailable Unavailable Cathy Gonzalez MD Unavailable Unavailable Cathy Gonzalez MD Unavailable Unavailable Cathy Gonzalez MD Unavailable Unavailable Cathy Gonzalez MD Unavailable Unavailable Cathy Gonzalez MD Unavailable Unavailable Cathy Gonzalez MD Unavailable Unavailable Cathy Gonzalez MD Unavailable Unavailable Cathy Gonzalez MD Unavailable Unavailable Cathy Gonzalez MD Unavailable Unavailable Cathy Gonzalez MD Unavailable Unavailable Cathy Gonzalez MD Unavailable Unavailable Cathy Gonzalez MD Unavailable Unavailable Cathy Gonzalez MD Unavailable Unavailable Cathy Gonzalez MD Unavailable Unavailable Cathy Gonzalez MD Unavailable Unavailable Cathy Gonzalez MD Unavailable Unavailable Cathy Gonzalez MD Unavailable Unavailable Cathy Gonzalez MD Unavailable Unavailable Cathy Gonzalez MD Unavailable Unavailable Cathy Gonzalez MD Unavailable Unavailable Cathy Gonzalez MD Unavailable Unavailable Cathy Gonzalez MD Unavailable Unavailable Cathy Goznalez MD Unavailable Unavailable Cathy Gonzalez MD Unavailable Unavailable Cathy Gonzalez MD Unavailable Unavailable Cathy Gonzalez MD Unavailable Unavailable Cathy Gonzalez MD Unavailable Unavailable Cathy Gonzalez MD Unavailable Unavailable Cathy Gonzalez MD Unavailable Unavailable Cathy Gonzalez MD Unavailable Unavailable Cathy Gonzalez MD Unavailable Unavailable Cathy Gonzalez MD Unavailable Unavailable Cathy Gonzalez MD Unavailable Unavailable Cathy Gonzalez MD Unavailable Unavailable Cathy Gonzalez MD Unavailable Unavailable Cathy Gonzalez MD Unavailable Unavailable Cathy Gonzalez MD Unavailable Unavailable MCELAN, DENA PA Unavailable Unavailable MCELHERAN, DENA PA Unavailable Unavailable MCELHERAN, DENA PA Unavailable Unavailable MCELHERAN, DENA PA Unavailable Unavailable MCELHERAN, DENA PA Unavailable Unavailable MCELHERAN, DENA PA Unavailable Unavailable MCELHERAN, DENA PA Unavailable Unavailable MCELHERAN, DENA PA Unavailable Unavailable MCELHERAN, DENA PA Unavailable Unavailable MCELHERAN, DENA PA Unavailable Unavailable MCELHERAN, DENA PA Unavailable Unavailable MCELHERAN, DENA PA Unavailable Unavailable MCELHERAN, DENA PA Unavailable Unavailable MCELHERAN, DENA PA Unavailable Unavailable MCELHERAN, DENA PA Unavailable Unavailable MCELHERAN, DNEA PA Unavailable Unavailable MCELHERAN, DENA PA Unavailable Unavailable MCELHERAN, DENA PA Unavailable Unavailable MCELHERAN, DENA PA Unavailable Unavailable MCELHERAN, DENA PA Unavailable Unavailable MCELHERAN, DENA PA Unavailable Unavailable MCELHERAN, DENA PA Unavailable Unavailable MCELHERAN, DENA PA Unavailable Unavailable MCELHERAN, DENA PA Unavailable Unavailable MCELHERAN, DENA PA Unavailable Unavailable MCELHERAN, DENA PA Unavailable Unavailable MCELHERAN, DENA PA Unavailable Unavailable MCELHERAN, DENA PA Unavailable Unavailable Huey, A Leatha MAXILLOFACIAL SURGEON Unavailable Unavailable Mather, A Leatha MAXILLOFACIAL SURGEON Unavailable Unavailable Mather, A Leatha MAXILLOFACIAL SURGEON Unavailable Unavailable Mather, A Leatha MAXILLOFACIAL SURGEON Unavailable Unavailable Mather, A Leatha MAXILLOFACIAL SURGEON Unavailable Unavailable Mather, A Leatha MAXILLOFACIAL SURGEON Unavailable Unavailable Mather, A Leatha MAXILLOFACIAL SURGEON Unavailable Unavailable Mather, A Leatha MAXILLOFACIAL SURGEON Unavailable Unavailable Mather, A Leatha MAXILLOFACIAL SURGEON Unavailable Unavailable Mather, A Leatha MAXILLOFACIAL SURGEON Unavailable Unavailable Mather, A Leatha MAXILLOFACIAL SURGEON Unavailable Unavailable Mather, A Leatha MAXILLOFACIAL SURGEON Unavailable Unavailable Mather, A Leatha MAXILLOFACIAL SURGEON Unavailable Unavailable Mather, A Leatha MAXILLOFACIAL SURGEON Unavailable Unavailable Mather, A Leatha MAXILLOFACIAL SURGEON Unavailable Unavailable Mather, A Leatha MAXILLOFACIAL SURGEON Unavailable Unavailable Mather, A Leatha MAXILLOFACIAL SURGEON Unavailable Unavailable Mather, A Leatha MAXILLOFACIAL SURGEON Unavailable Unavailable Mather, A Leatha MAXILLOFACIAL SURGEON Unavailable Unavailable Mather, A Leatha MAXILLOFACIAL SURGEON Unavailable Unavailable Mather, A Leatha MAXILLOFACIAL SURGEON Unavailable Unavailable Mather, A Leatha MAXILLOFACIAL SURGEON Unavailable Unavailable Mather, A Leatha MAXILLOFACIAL SURGEON Unavailable Unavailable Mather, A Leatha MAXILLOFACIAL SURGEON Unavailable Unavailable Mather, A Leatha MAXILLOFACIAL SURGEON Unavailable Unavailable Mather, A Leatha MAXILLOFACIAL SURGEON Unavailable Unavailable Huey, A Leatha MAXILLOFACIAL SURGEON Unavailable Unavailable Huey, A Leatha MAXILLOFACIAL SURGEON Unavailable Unavailable Cathy Gonzalez MD Unavailable Unavailable Cathy Gonzalez MD Unavailable Unavailable Cathy Gonzalez MD Unavailable Unavailable Cathy Gonzalez MD Unavailable Unavailable Cathy Gonzalez MD Unavailable Unavailable Cathy Gonzalez MD Unavailable Unavailable Cathy Gonzalez MD Unavailable Unavailable Cathy Gonzalez MD Unavailable Unavailable Cathy Gonzalez MD Unavailable Unavailable Cathy Gonzalez MD Unavailable Unavailable Cathy Gonzalez MD Unavailable Unavailable Cathy Gonzalez MD Unavailable Unavailable Cathy Gonzalez MD Unavailable Unavailable Cathy Gonzalez MD Unavailable Unavailable Cathy Gonzalez MD Unavailable Unavailable Cathy Gonzalez MD Unavailable Unavailable Cathy Gonzalez MD Unavailable Unavailable Cathy Gonzalez MD Unavailable Unavailable Cathy Gonzalez MD Unavailable Unavailable Cathy Gonzalez MD Unavailable Unavailable Cathy Gonzalez MD Unavailable Unavailable Cathy Gonzalez MD Unavailable Unavailable Cathy Gonzalez MD Unavailable Unavailable Cathy Gonzalez MD Unavailable Unavailable Cathy Gonzalez MD Unavailable Unavailable Cathy Gonzalez MD Unavailable Unavailable Cathy Gonzalez MD Unavailable Unavailable Cathy Gonzalez MD Unavailable Unavailable Cathy Gonzalez MD Unavailable Unavailable Cathy Gonzalez MD Unavailable Unavailable Cathy Gonzalez MD Unavailable Unavailable Cathy Gonzalez MD Unavailable Unavailable Cathy Gonzalez MD Unavailable Unavailable Cathy Gonzalez MD Unavailable Unavailable Cathy Gonzalez MD Unavailable Unavailable Cathy Gonzalez MD Unavailable Unavailable Cathy Gonzalez MD Unavailable Unavailable Cathy Gonzalez MD Unavailable Unavailable Cathy Gonzalez MD Unavailable Unavailable Cathy Gonzalez MD Unavailable Unavailable Cathy Gonzalez MD Unavailable Unavailable Cathy Gonzalez MD Unavailable Unavailable Cathy Gonzalez MD Unavailable Unavailable Cathy Gonzalez MD Unavailable Unavailable Cathy Gonzalez MD Unavailable Unavailable Cathy Gonzalez MD Unavailable Unavailable Cathy Gonzalez MD Unavailable Unavailable Cathy Gonzalez MD Unavailable Unavailable Cathy Gonzalez MD Unavailable Unavailable Cathy Gonzalez MD Unavailable Unavailable Cathy Gonzalez MD Unavailable Unavailable Cathy Gonzalez MD Unavailable Unavailable Cathy Gonzalez MD Unavailable Unavailable Cathy Gonzalez MD Unavailable Unavailable Cathy Gonzalez MD Unavailable Unavailable Cathy Gonzalez MD Unavailable Unavailable Cathy Gonzalez MD Unavailable Unavailable Cathy Gonzalez MD Unavailable Unavailable Cathy Gonzalez MD Unavailable Unavailable Cathy Gonzalez MD Unavailable Unavailable Cathy Gonzalez MD Unavailable Unavailable Cathy Gonzalez MD Unavailable Unavailable Cathy Gonzalez MD Unavailable Unavailable Cathy Gonzalez MD Unavailable Unavailable Cathy Gonzalez MD Unavailable Unavailable Cathy Gonzalez MD Unavailable Unavailable Cathy Gonzalez MD Unavailable Unavailable Cathy Gonzalez MD Unavailable Unavailable Cathy Gonzalez MD Unavailable Unavailable Cathy Gonzalez MD Unavailable Unavailable Cathy Gonzalez MD Unavailable Unavailable Cathy Gonzalez MD Unavailable Unavailable Cathy Gonzalez MD Unavailable Unavailable Cathy Gonzalez MD Unavailable Unavailable Cathy Gonzalez MD Unavailable Unavailable Cathy Gonzalez MD Unavailable Unavailable Cathy Gonzalez MD Unavailable Unavailable Cathy Gonzalez MD Unavailable Unavailable Cathy Gonzalez MD Unavailable Unavailable Cathy Gonzalez MD Unavailable Unavailable Cathy Gonzalez MD Unavailable Unavailable Cathy Gonzalez MD Unavailable Unavailable Cathy Gonzalez MD Unavailable Unavailable Cathy Gonzalez MD Unavailable Unavailable Cathy Gonzalez MD Unavailable Unavailable Cathy Gonzalez MD Unavailable Unavailable Cathy Gonzalez MD Unavailable Unavailable Cathy Gonzalez MD Unavailable Unavailable Cathy Gonzalez MD Unavailable Unavailable HeVon daugherty MD Unavailable Unavailable HeVon daugherty MD Unavailable Unavailable HeVon daugherty MD Unavailable Unavailable Heitner, Von Cage MD Unavailable Unavailable Heitmichael, Von Cage MD Unavailable Unavailable Heitmichael, Von Cage MD Unavailable Unavailable Heitmichael, Von Cage MD Unavailable Unavailable Heitner, Von Cage MD Unavailable Unavailable Heitner, Von Cage MD Unavailable Unavailable Heitner, Von Cage MD Unavailable Unavailable Heitner, Von Cage MD Unavailable Unavailable Heitner, Von Cage MD Unavailable Unavailable Hewillow, Von Cage MD Unavailable Unavailable Hewillow, Von Cage MD Unavailable Unavailable Hewillow, Von Cage MD Unavailable Unavailable Hewillow, Von Cage MD Unavailable Unavailable Heitner, Von Cage MD Unavailable Unavailable Heitner, Von Cage MD Unavailable Unavailable Hewillow, Von Cage MD Unavailable Unavailable Hewillow, Von Cage MD Unavailable Unavailable Hewillow, Von Cage MD Unavailable Unavailable Hestephaniener, Von Cage MD Unavailable Unavailable Heitner, Von Cage MD Unavailable Unavailable Hewillow, Von Cage MD Unavailable Unavailable Hewillow, Von Cage MD Unavailable Unavailable Hewillow, Von Cage MD Unavailable Unavailable Fish, Toro Bee MD Unavailable Unavailable Fish, Toro Bee MD Unavailable Unavailable Fish, Toro Bee MD Unavailable Unavailable Fish, Toro Bee MD Unavailable Unavailable Fish, Toro Bee MD Unavailable Unavailable Fish, Toro Bee MD Unavailable Unavailable Fish, Toro Bee MD Unavailable Unavailable Fish, Toro Bee MD Unavailable Unavailable Fish, Toro Bee MD Unavailable Unavailable Fish, Toro Bee MD Unavailable Unavailable Fish, Toro Bee MD Unavailable Unavailable Fish, Toro Bee MD Unavailable Unavailable Fish, Toro Bee MD Unavailable Unavailable Fish, Toro Bee MD Unavailable Unavailable Fish, Toro Bee MD Unavailable Unavailable Fish, Toro Bee MD Unavailable Unavailable Fish, Toro Bee MD Unavailable Unavailable Fish, Toro Bee MD Unavailable Unavailable Fish, Toro Bee MD Unavailable Unavailable Fish, Toro Bee MD Unavailable Unavailable Fish, Toro Bee MD Unavailable Unavailable Fish, Toro Bee MD Unavailable Unavailable Fish, Toro Bee MD Unavailable Unavailable Fish, Toro Bee MD Unavailable Unavailable Fish, Toro Bee MD Unavailable Unavailable Fish, Toro Bee MD Unavailable Unavailable Fish, Toro Bee MD Unavailable Unavailable Fish, Toro Bee MD Unavailable Unavailable Fish, Toro Bee MD Unavailable Unavailable Fish, Toro Bee MD Unavailable Unavailable Fish, Toro Bee MD Unavailable Unavailable Fish, Toro Bee MD Unavailable Unavailable Fish, Toro Bee MD Unavailable Unavailable Fish, Toro Bee MD Unavailable Unavailable Fish, Toro Bee MD Unavailable Unavailable Fish, Toro Bee MD Unavailable Unavailable Fish, Toro Bee MD Unavailable Unavailable Fish, Toro Bee MD Unavailable Unavailable Fish, Toro Bee MD Unavailable Unavailable Fish, Toro Bee MD Unavailable Unavailable Fish, Toro Bee MD Unavailable Unavailable Fish, Toro Bee MD Unavailable Unavailable Fish, Toro Bee MD Unavailable Unavailable Fish, Toro Bee MD Unavailable Unavailable Fish, Toro Bee MD Unavailable Unavailable Fish, Toro Bee MD Unavailable Unavailable Fish, Toro Bee MD Unavailable Unavailable Fish, Toro Bee MD Unavailable Unavailable Fish, Toro Bee MD Unavailable Unavailable Fish, Toro Bee MD Unavailable Unavailable Fish, Toro Bee MD Unavailable Unavailable Fish, Toro Bee MD Unavailable Unavailable Fish, Toro Bee MD Unavailable Unavailable MIKEY, Kailey LONGORIA MD Unavailable Unavailable Kailey JENSEN MD Unavailable Unavailable Kailey JENSEN MD Unavailable Unavailable Kailey JENSEN MD Unavailable Unavailable Kailey JENSEN MD Unavailable Unavailable Kailey JENSEN MD Unavailable Unavailable Kailey JENSEN MD Unavailable Unavailable Kailey JENSEN MD Unavailable Unavailable Kailey JENSEN MD Unavailable Unavailable Kailey JENSEN MD Unavailable Unavailable Kailey JENSEN MD Unavailable Unavailable Kailey JENSEN MD Unavailable Unavailable Kailey JENSEN MD Unavailable Unavailable Kailey JENSEN MD Unavailable Unavailable Kailey JENSEN MD Unavailable Unavailable Kailey JENSEN MD Unavailable Unavailable Kailey JENSEN MD Unavailable Unavailable Kailey JENSEN MD Unavailable Unavailable Kailey JENSEN MD Unavailable Unavailable Kailey JENSEN MD Unavailable Unavailable Kailey JENSEN MD Unavailable Unavailable Kailey JENSEN MD Unavailable Unavailable Kailey JENSEN MD Unavailable Unavailable Kailey JENSEN MD Unavailable Unavailable Kailey JENSEN MD Unavailable Unavailable Kailey JENSEN MD Unavailable Unavailable Kailey JENSEN MD Unavailable Unavailable MIKEYKailey CRUZ MD Unavailable Unavailable Kailey JENSEN MD Unavailable Unavailable MIKEY, T VON MD Unavailable Unavailable Kailey JENSEN MD Unavailable Unavailable Kailey JENSEN MD Unavailable Unavailable Kailey JENSEN MD Unavailable Unavailable aKiley JENSEN MD Unavailable Unavailable Kailey JENSEN MD Unavailable Unavailable Kailey JENSEN MD Unavailable Unavailable Kailey JENSEN MD Unavailable Unavailable Kailey JENSEN MD Unavailable Unavailable Kailey JENSEN MD Unavailable Unavailable Kailey JENSEN MD Unavailable Unavailable Kailey JENSEN MD Unavailable Unavailable Kailey JENSEN MD Unavailable Unavailable Kailey JENSEN MD Unavailable Unavailable Kailey JENSEN MD Unavailable Unavailable Kailey JENSEN MD Unavailable Unavailable Kailey JENSEN MD Unavailable Unavailable Kailey JENSEN MD Unavailable Unavailable Kailey JENSEN MD Unavailable Unavailable Kailey JENSEN MD Unavailable Unavailable Kailey JENSEN MD Unavailable Unavailable Kailey JENSEN MD Unavailable Unavailable Kailey JENSEN MD Unavailable Unavailable Kailey JENSEN MD Unavailable Unavailable Kailey JENSEN MD Unavailable Unavailable Kailey JENSEN MD Unavailable Unavailable Kailey JENSEN MD Unavailable Unavailable Kailey JENSEN MD Unavailable Unavailable Kailey JENSEN MD Unavailable Unavailable Kailey JENSEN MD Unavailable Unavailable Kailey JENSEN MD Unavailable Unavailable Kailey JENSEN MD Unavailable Unavailable Kailey JENSEN MD Unavailable Unavailable Kailey JENSEN MD Unavailable Unavailable Kailey JENSEN MD Unavailable Unavailable Kailey JENSEN MD Unavailable Unavailable Kailey JENSEN MD Unavailable Unavailable Kailey JENSEN MD Unavailable Unavailable Kailey JENSEN MD Unavailable Unavailable Kailey JENSEN MD Unavailable Unavailable Kailey JENSEN MD Unavailable Unavailable Kailey JENSEN MD Unavailable Unavailable Kailey JENSEN MD Unavailable Unavailable Kailey JENSEN MD Unavailable Unavailable Kailey JENSEN MD Unavailable Unavailable Kailey JENSEN MD Unavailable Unavailable Kailey JENSEN MD Unavailable Unavailable Kailey JENSEN MD Unavailable Unavailable Kailey JENSEN MD Unavailable Unavailable Kailey JENSEN MD Unavailable Unavailable Kailey JENSEN MD Unavailable Unavailable Kailey JENSEN MD Unavailable Unavailable Kailey JENSEN MD Unavailable Unavailable Kailey JENSEN MD Unavailable Unavailable Guicho Taylor Unavailable Unavailable Taylor, Guicho Unavailable Unavailable Taylor, Guicho Unavailable Unavailable Taylor, Guicho Unavailable Unavailable Taylor, Guicho Unavailable Unavailable Taylor, Guicho Unavailable Unavailable Taylor, Guicho Unavailable Unavailable Taylor, Guicho Unavailable Unavailable Taylor, Guicho Unavailable Unavailable Taylor, Guicho Unavailable Unavailable Taylor, Guicho Unavailable Unavailable Taylor, Guicho Unavailable Unavailable Taylor, Guicho Unavailable Unavailable Taylor, Guicho Unavailable Unavailable Taylor, Guicho Unavailable Unavailable Taylor, Guicho Unavailable Unavailable Taylor, Guicho Unavailable Unavailable Taylor, Guicho Unavailable Unavailable Taylor, Guicho Unavailable Unavailable Taylor, Ugicho Unavailable Unavailable Taylor, Guicho Unavailable Unavailable Taylor, Guicho Unavailable Unavailable Taylor, Guicho Unavailable Unavailable Taylor, Guicho Unavailable Unavailable Taylor, Guicho Unavailable Unavailable Taylor, Guicho Unavailable Unavailable Taylor, Guicho Unavailable Unavailable Taylor, Guicho Unavailable Unavailable Taylor, Guicho Unavailable Unavailable Taylor, Guicho Unavailable Unavailable Taylor, Guicho Unavailable Unavailable Taylor, Guicho Unavailable Unavailable Taylor, Guicho Unavailable Unavailable Taylor, Guicho Unavailable Unavailable Taylor, Guicho Unavailable Unavailable Taylor, Guicho Unavailable Unavailable Taylor, Guicho Unavailable Unavailable Taylor, Guicho Unavailable Unavailable Taylor, Guicho Unavailable Unavailable Taylor, Guicho Unavailable Unavailable Taylor, Guicho Unavailable Unavailable Taylor, Guicho Unavailable Unavailable Taylor, Guicho Unavailable Unavailable Taylor, Guicho Unavailable Unavailable Krystina Gonzalez MD Unavailable Unavailable Krystina Gonzalez MD Unavailable Unavailable Krystina Gonzalez MD Unavailable Unavailable Lisa, Krystina Chaney MD Unavailable Unavailable Lisa, Krystina Chaney MD Unavailable Unavailable Lisa, S Shiv HARO Unavailable Unavailable Lisa, S Shiv HARO Unavailable Unavailable Krystina Gonzalez MD Unavailable Unavailable Re-disclosure Warning The records that you are about to access may contain information from federally-assisted alcohol or drug abuse programs. If such information is present, then the following federally mandated warning applies: This information has been disclosed to you from records protected by federal confidentiality rules (42 CFR part 2). The federal rules prohibit you from making any further disclosure of this information unless further disclosure is expressly permitted by the written consent of the person to whom it pertains or as otherwise permitted by 42 CFR part 2. A general authorization for the release of medical or other information is NOT sufficient for this purpose. The Federal rules restrict any use of the information to criminally investigate or prosecute any alcohol or drug abuse patient.The records that you are about to access may contain highly sensitive health information, the redisclosure of which is protected by Article 27-F of the [place] State Public Health law. If you continue you may have access to information: Regarding HIV / AIDS; Provided by facilities licensed or operated by the [facility] Office of Mental Health; or Provided by the [facility] Office for People With Developmental Disabilities. If such information is present, then the following [facility] mandated warning applies: This information has been disclosed to you from confidential records which are protected by state law. State law prohibits you from making any further disclosure of this information without the specific written consent of the person to whom it pertains, or as otherwise permitted by law. Any unauthorized further disclosure in violation of state law may result in a fine or senior living sentence or both. A general authorization for the release of medical or other information is NOT sufficient authorization for further disc losure. Allergies and Adverse Reactions Type Description Substance Reaction Status Data Source(s ) Allergy to substance Allergy to substance Allergy to substance [facility] ([facility]) Allergy to substance Allergy to substance Allergy to substance [facility] ([facility]) Allergy to substance Allergy to substance Allergy to substance [facility] ([facility]) Family History Family Member Name Family Member Gender Family Member Status Date o f Status Description Data Source(s) Unknown Unknown Problem [facility] Encounters Encounter Providers Location Date Indications Data Source(s ) Patricio Gonzalez MD: [address] [place] [address], Ph. Attender: Patricio Gonzalez MD [facility] 11/25/2020 12:00:00 AM EST [facility] ([facility]) MILLER PuenteBC: [address] [place] [address], Ph. Attender: Leatha [facility] 11/19/2020 12:00:00 AM EST CORAL ([facility]) JEFF Puente: [address] [place] [address], Ph. Attender: Leatha Arzate [facility] Shiv Gonzalez MD: [address], [place] [address], Ph. Attender: Shiv Gonzalez MD [facility] 10/21/2020 12:00:00 AM EST CORAL ([facility]) Shiv Gonzalez MD: [address] [place] [address], Ph. Attender: Shiv Gonzalez MD [facility] 10/21/2020 12:00:00 AM EST CORAL ([facility]) Shiv Gonzalez MD: [address], [place] [address], Ph. Attender: Shiv Gonzalez MD [facility] 10/21/2020 12:00:00 AM EST CORAL ([facility]) Outpatient Attender: Rohit Lema MD Physical Therapy 10/05/2020 0 2:30:00 PM EST MEDENT ([facility]) OFFICE OUTPATIENT NEW 30 MINUTES Attender: Guicho Taylor Physical Therapy 09/23/2020 12:30:00 PM EST MEDENT ([facility]) Outpatient Attender: DENA LALA Physical Therapy 09/13/2020 10:00:00 AM EST MEDENT ([facility]) Shiv Gonzalez MD: [address] [place] [address], Ph. Attender: Shiv Gonzalez MD [facility] 09/06/2020 12:00:00 AM EST CORAL ([facility]) Shiv Gonzalez MD: [address], [place] [address], Ph. Attender: Shiv Gonzalez MD [facility] 09/06/2020 12:00:00 AM EST CORAL ([facility]) Shiv Gonzalez MD: [address] [place] [address], Ph. Attender: Shiv Gonzalez MD [facility] 09/06/2020 12:00:00 AM EST CORAL ([facility]) Shiv Gonzalez MD: [address] [place] [address], Ph. Attender: Shiv Gonzalez MD [facility] 09/06/2020 12:00:00 AM EST CORAL ([facility]) Outpatient Attender: Patricio Gonzalez MD FP 08/18/2020 04:35:04 PM EDT [facility] Outpatient Attender: Patricio Gonzalez MD FP 08/18/2020 02:23:00 PM EDT [facility] Outpatient Attender: Patricio Gonzalez MD FP 08/18/2020 02:18:02 PM EDT [facility] Outpatient Attender: Patricio Gonzalez MD FP 08/18/2020 02:18:01 PM EDT [facility] Outpatient Attender: Patricio Gonzalez MD FP 08/18/2020 01:08:02 PM EDT [facility] Outpatient Attender: Patricio Gonzalez MD FP 08/18/2020 01:08:01 PM EDT [facility] Outpatient Attender: Patricio Gonzalez MD FP 08/18/2020 09:00:01 AM EDT [facility] Outpatient Attender: Patricio Gonzalez MD FP 08/13/2020 01:13:01 PM EDT [facility] Outpatient Attender: Patricio Gonzalez MD FP 08/13/2020 01:02:59 PM EDT [facility] Outpatient Attender: Patricio Gonzalez MD FP 08/10/2020 03:18:01 PM EDT [facility] Outpatient Attender: Patricio Gonzalez MD FP 08/10/2020 03:17:00 PM EDT [facility] Outpatient Attender: Patricio Gonzalez MD FP 08/10/2020 03:09:01 PM EDT [facility] Outpatient Attender: Patricio Gonzalez MD FP 08/10/2020 03:08:00 PM EDT [facility] Outpatient Attender: Patricio Gonzalez MD FP 08/09/2020 01:45:02 PM EDT [facility] Outpatient Attender: Patricio Gonzalez MD FP 08/09/2020 10:58:00 AM EDT [facility] Outpatient Attender: Patricio Gonzalez MD FP 08/09/2020 10:52:00 AM EDT [facility] Outpatient Attender: Patricio Gonzalez MD FP 08/06/2020 02:21:01 PM EDT [facility] Outpatient Attender: Patricio Gonzalez MD FP 07/29/2020 08:02:05 PM EDT [facility] Outpatient Attender: Patricio Gonzalez MD FP 07/29/2020 08:02:01 PM EDT [facility] Outpatient Attender: Patricio Gonzalez MD FP 07/29/2020 05:03:05 PM EDT [facility] Outpatient Attender: Patricio Gonzalez MD FP 07/29/2020 03:03:01 PM EDT [facility] Outpatient Attender: Patricio Gonzalez MD FP 07/28/2020 09:43:00 AM EDT [facility] Outpatient Attender: Patricio Gonzalez MD FP 07/09/2020 08:01:04 AM EDT [facility] Outpatient Attender: Patricio Gonzalez MD FP 07/08/2020 03:47:01 PM EDT [facility] Outpatient Attender: Patricio Gonzalez MD FP 07/08/2020 02:18:01 PM EDT [facility] Outpatient Attender: Patricio Gonzalez MD FP 07/08/2020 02:17:00 PM EDT [facility] Outpatient Attender: Patricio Gonzalez MD FP 07/08/2020 01:40:00 PM EDT [facility] Outpatient Attender: Patricio Gonzalez MD FP 07/08/2020 07:57:00 AM EDT [facility] Outpatient Attender: Patricio Gonzalez MD FP 07/02/2020 03:04:01 PM EDT [facility] Outpatient Attender: Patricio Gonzalez MD FP 06/30/2020 03:24:01 PM EDT [facility] Outpatient Attender: Patricio Gonzalez MD FP 06/25/2020 02:20:00 PM EDT [facility] Outpatient Attender: Patricio Gonzalez MD FP 06/25/2020 02:19:03 PM EDT [facility] Outpatient Attender: Patricio Gonzalez MD FP 06/24/2020 12:03:01 PM EDT [facility] Outpatient Attender: Patricio Gonzalez MD FP 06/23/2020 08:13:01 AM EDT [facility] Outpatient Attender: Rohit Lema MD Physical Therapy 06/17/2020 1 0:45:00 AM EDT MEDENT ([facility]) Outpatient Attender: Patricio Gonzalez MD FP 06/07/2020 11:13:02 AM EDT [facility] Outpatient Attender: Patricio Gonzalez MD FP 06/07/2020 11:12:00 AM EDT [facility] Outpatient Attender: DENA LALA Physical Therapy 2020 11:15:00 AM EDT MEDENT ([facility]) Outpatient Attender: Patricio Gonzalez MD FP 06/01/2020 08:01:03 PM EDT [facility] Outpatient Attender: Patricio Gonzalez MD FP 06/01/2020 08:01:02 PM EDT [facility] Outpatient Attender: Patricio Gonzalez MD FP 06/01/2020 02:25:01 PM EDT [facility] Outpatient Attender: Patricio Gonzalez MD FP 05/31/2020 11:49:00 AM EDT [facility] Outpatient Attender: Patricio Gonzalez MD FP 05/17/2020 12:06:01 PM EDT [facility] Office Visit Attender: DENA LALA Physical Therapy 04/23/2020 02:00:00 PM EDT MEDENT ([facility]) Office Visit Attender: Niles Cline MD Physical Therapy 01:45:00 PM EDT MED[facility] ([facility]) Outpatient Attender: Patricio Gonzalez MD FP 04/08/2020 05:50:00 PM EDT [facility] Office Visit Attender: DENA LALA Physical Therapy 03/25/2020 09:30:00 AM EDT MED[facility] ([facility]) Outpatient Attender: Patricio Gonzalez MD FP 03/17/2020 01:48:01 PM EDT [facility] Outpatient Attender: Patricio Gonzalez MD FP 03/17/2020 09:26:01 AM EDT [facility] Outpatient Attender: Patricio Gonzalez MD FP 03/03/2020 04:12:02 PM EDT [facility] Outpatient Attender: Patricio Gonzalez MD FP 03/03/2020 03:08:00 PM EDT [facility] Outpatient Attender: Patricio Gonzalez MD FP 02/09/2020 03:58:02 PM EDT [facility] Outpatient Attender: Patricio Gonzalez MD FP 02/04/2020 04:20:00 PM EDT [facility] Outpatient Attender: Patricio Gonzalez MD FP 02/04/2020 03:00:01 PM EDT [facility] Outpatient Attender: Patricio Gonzalez MD FP 01/30/2020 07:54:00 AM EDT [facility] Outpatient Attender: VON JENSEN MD FP 01/30/2020 07:53:01 A M EDT [facility] Outpatient Attender: VON JENSEN MD FP 01/24/2020 09:32:01 P M EDT [facility] Outpatient Attender: VON JENSEN MD FP 01/24/2020 09:30:03 P M EDT [facility] Outpatient Attender: VON JENSEN MD FP 01/24/2020 09:30:01 P M EDT [facility] Outpatient Attender: VON JENSEN MD 01/24/2020 09:11:02 P M EDT [facility] Outpatient Attender: VON JENSEN MD 01/24/2020 09:11:01 P M EDT [facility] Outpatient Attender: VON JENSEN MD 01/19/2020 03:02:00 P M EDT [facility] Outpatient Attender: Niles Cline MD Physical Therapy 01:15:00 PM EDT MEDENT ([facility]) Outpatient Attender: VON JENSEN MD 01/13/2020 10:31:01 P M EDT [facility] Outpatient Attender: VON JENSEN MD FP 01/13/2020 11:50:01 A M EDT [facility] Outpatient Attender: VON JENSEN MD FP 01/13/2020 11:49:01 A M EDT [facility] Outpatient Attender: VON JENSEN MD FP 01/13/2020 11:48:00 A M EDT [facility] Outpatient Attender: VON JENSEN MD FP 01/13/2020 09:49:00 A M EDT [facility] Outpatient Attender: VON JENSEN MD FP 01/13/2020 09:14:00 A M EDT [facility] Outpatient Attender: VON JENSEN MD 01/09/2020 02:10:01 P M [facility] Outpatient Attender: Niles Cline MD Physical Therapy 04/2020 01:00:00 PM EST MEDENT ([facility]) Outpatient Attender: VON JENSEN MD 01/08/2020 01:05:00 P M [facility] Outpatient Attender: VON JENSEN MD 01/08/2020 12:38:00 P M [facility] Outpatient 01/08/2020 11:54:00 AM [facility] Outpatient Attender: VON JENSEN MD 12/17/2019 09:01:08 P M [facility] Outpatient Attender: VON JENSEN MD 12/09/2019 03:34:01 P M [facility] Medications Medication Brand Name Start Date Product Form Dose Route Admi nistrative Instructions Pharmacy Instructions Status Indications Reaction Description Data Source(s) 15 mg 11/30/2020 12:00:00 AM EST tablet 180 TAKE ONE TABLET BY MOUTH EVERY 4 HOURS NEEDED FOR PAIN MAXIMUM DAILY DOSE = 6 TABLETS TAKE ONE TABLET BY MOUTH EVERY 4 HOURS NEEDED FOR PAIN MAXIMUM DAILY DOSE = 6 TABLETS SOLD: 11/30/2020 [facility] 300 mg 11/30/2020 12:00:00 AM EST capsule 90 TAKE ONE CAPSULE BY MOUTH EVERY MORNING AND 2 AT BEDTIME TAKE ONE CAPSULE BY MOUTH EVERY MORNING AND 2 AT BEDTIME SOLD: 11/30/2020 [facility] 800 mg 11/26/2020 12:00:00 AM EST tablet 30 TAKE ONE TABLET BY MOUTH THREE TIMES A DAY NEEDED TAKE ONE TABLET BY MOUTH THREE TIMES A DAY NEEDED S OLD: 11/30/2020 [facility] Acetaminophen 300 MG / Codeine Phosphate 30 MG Oral Tablet acetaminophen 300 mg- codeine 30 mg tablet acetaminophen 300 mg-codeine 30 mg tablet 11/19/2020 12:00:00 AM EST completed acetaminophen 300 MG / codeine phosphate 30 MG Oral Tablet CORAL ([facility]) Acetaminophen 300 MG / Codeine Phosphate 30 MG Oral Tablet acetaminophen 300 mg- codeine 30 mg tablet acetaminophen 300 mg-codeine 30 mg tablet 11/19/2020 12:00:00 AM EST completed acetaminophen 300 MG / codeine phosphate 30 MG Oral Tablet CORAL ([facility]) 300-30 mg 11/18/2020 12:00:00 AM EST tablet 20 TAKE ONE TO TWO TABLETS BY MOUTH EVERY 4 TO 6 HOURS NEEDED FOR PAIN AFTER SURGERY MAXIMUM DAILY DOSE = 8 TABLETS TAKE ONE TO TWO TABLETS BY MOUTH EVERY 4 TO 6 HOURS NEEDED FOR PAIN AFTER SURGERY MAXIMUM DAILY DOSE = 8 TABLETS SOLD: 11/19/2020 [facility] 1,250 mcg (50,000 unit) 11/17/2020 12:00:00 AM EST capsule 4 TAKE 1 CAPSULE BY MOUTH EVERY WEEK TAKE 1 CAPSULE BY MOUTH EVERY WEEK SOLD: 11/19/2020 [facility] 15 mg 11/02/2020 12:00:00 AM EST tablet 180 TAKE ONE TABLET BY MOUTH EVERY 4 HOURS NEEDED FOR PAIN MAXIMUM DAILY DOSE = SIX TABLETS TAKE ONE TABLET BY MOUTH EVERY 4 HOURS NEEDED FOR PAIN MAXIMUM DAILY DOSE = SIX TABLETS SOLD: 11/02/2020 [facility] 150 mg 10/27/2020 12:00:00 AM EST capsule,extended releas e 24hr 60 TAKE TWO CAPSULES BY MOUTH EVERY DAY TAKE TWO CAPSULES BY MOUTH EVERY DAY SOLD: 11/02/2020 [facility] 15 mg 10/06/2020 12:00:00 AM EST tablet 180 TAKE ONE TABLET BY MOUTH EVERY 4 HOURS NEEDED FOR PAIN MAXIMUM DAILY DOSE = 6 TABLETS TAKE ONE TABLET BY MOUTH EVERY 4 HOURS NEEDED FOR PAIN MAXIMUM DAILY DOSE = 6 TABLETS SOLD: 10/06/2020 [email or web address] Cyclobenzaprine hydrochloride 10 MG Oral Tablet CYCLOBENZAPR INE HCL 10/05/2020 12:00:00 AM EST tablet 90 TAKE ONE TABLET BY MOUTH THREE TIMES A DAY NEEDED FOR SPASMS TAKE ONE TABLET BY MOUTH THREE TIMES A DAY NEEDED F OR SPASMS SOLD: 11/02/2020 [facility] 300 mg 10/05/2020 12:00:00 AM EST capsule 90 TAKE ONE CAPSULE BY MOUTH EVERY MORNING AND 2 AT BEDTIME TAKE ONE CAPSULE BY MOUTH EVERY MORNING AND 2 AT BEDTIME SOLD: 11/02/2020 [facility] 8.6-50 mg 10/05/2020 12:00:00 AM EST tablet 120 TAKE TWO TABLETS BY MOUTH TWICE A DAY TAKE TWO TABLETS BY MOUTH TWICE A DAY SOLD: 10/06/2020 [email or web address] Cyclobenzaprine hydrochloride 10 MG Oral Tablet CYCLOBENZAPR INE HCL 10/05/2020 12:00:00 AM EST tablet 90 TAKE ONE TABLET BY MOUTH THREE TIMES A DAY NEEDED FOR SPASMS TAKE ONE TABLET BY MOUTH THREE TIMES A DAY NEEDED F OR SPASMS SOLD: 10/06/2020 [facility] 300 mg 10/05/2020 12:00:00 AM EST capsule 90 TAKE ONE CAPSULE BY MOUTH EVERY MORNING AND 2 AT BEDTIME TAKE ONE CAPSULE BY MOUTH EVERY MORNING AND 2 AT BEDTIME SOLD: 10/06/2020 [facility] 15 mg 09/07/2020 12:00:00 AM EST tablet 180 TAKE ONE TABLET BY MOUTH EVERY 4 HOURS NEEDED FOR PAIN MAXIMUM DAILY DOSE = 6 TAKE ONE TABLET BY MOUTH EVERY 4 HOURS NEEDED FOR PAIN MAXIMUM DAILY DOSE = 6 SOLD: 09/07/2020 [facility] 150 mg 08/09/2020 12:00:00 AM EDT capsule,extended releas e 24hr 30 TAKE ONE CAPSULE BY MOUTH EVERY DAY TAKE ONE CAPSULE BY MOUTH EVERY DAY SOLD: 10/15/2020 [facility] 150 mg 08/09/2020 12:00:00 AM EDT capsule,extended releas e 24hr 30 TAKE ONE CAPSULE BY MOUTH EVERY DAY TAKE ONE CAPSULE BY MOUTH EVERY DAY SOLD: 08/09/2020 [facility] 15 mg 08/09/2020 12:00:00 AM EDT tablet 180 TAKE ONE TABLET BY MOUTH EVERY 4 HOURS NEEDED FOR PAIN MAXIMUM DAILY DOSE = 6 TAKE ONE TABLET BY MOUTH EVERY 4 HOURS NEEDED FOR PAIN MAXIMUM DAILY DOSE = 6 SOLD: 08/09/2020 [facility] 150 mg 08/09/2020 12:00:00 AM EDT capsule,extended releas e 24hr 30 TAKE ONE CAPSULE BY MOUTH EVERY DAY TAKE ONE CAPSULE BY MOUTH EVERY DAY SOLD: 09/07/2020 [facility] 1,250 mcg (50,000 unit) 07/30/2020 12:00:00 AM EDT capsule 12 TAKE ONE CAPSULE BY MOUTH EVERY WEEK FOR 12 WEEKS TAKE ONE CAPSULE BY MOUTH EVERY WEEK FOR 12 WEEKS SOLD: 08/09/2020 [facility] 15 mg 07/08/2020 12:00:00 AM EDT tablet 180 TAKE ONE TABLET BY MOUTH EVERY 4 HOURS NEEDED FOR PAIN MAXIMUM DAILY DOSE = 6 TAKE ONE TABLET BY MOUTH EVERY 4 HOURS NEEDED FOR PAIN MAXIMUM DAILY DOSE = 6 SOLD: 07/08/2020 [facility] 75 mg 07/08/2020 12:00:00 AM EDT capsule,extended releas e 24hr 30 TAKE ONE CAPSULE BY MOUTH EVERY MORNING TAKE ONE CAPSULE BY MOUTH EVERY MORNING SOLD: 07/08/2020 [facility] 8.6-50 mg 07/06/2020 12:00:00 AM EDT tablet 120 TAKE TWO TABLETS BY MOUTH TWICE A DAY MAXIMUM DAILY DOSE = 4 TAKE TWO TABLETS BY MOUTH TWICE A DAY GUNJAN ARTEAGA DAILY DOSE = 4 SOLD: 07/08/2020 [facility] 17 gram/dose 07/04/2020 12:00:00 AM EDT powder 238 17 GRAMS MIXED IN 8 OUNCES OF FLUID TO BE TAKEN BY MOUTH ONCE DAILY NEEDED CONSTIPATION 17 GRAMS MIXED IN 8 OUNCES OF FLUID TO BE TAKEN BY MOUTH ONCE DAILY NEEDED CONSTIPATION SOLD: 07/08/2020 [facility] 300 mg 07/03/2020 12:00:00 AM EDT capsule 90 TAKE ONE CAPSULE BY MOUTH EVERY MORNING AND TAKE 2 AT BEDTIME MAXIMUM DAILY DOSE = 3 TAKE ONE CAPSULE BY MOUTH EVERY MORNING AND TAKE 2 AT BEDTIME MAXIMUM DAILY DOSE = 3 SOLD: 07/08/2020 [facility] 300 mg 07/03/2020 12:00:00 AM EDT capsule 90 TAKE ONE CAPSULE BY MOUTH EVERY MORNING AND TAKE 2 AT BEDTIME MAXIMUM DAILY DOSE = 3 TAKE ONE CAPSULE BY MOUTH EVERY MORNING AND TAKE 2 AT BEDTIME MAXIMUM DAILY DOSE = 3 SOLD: 09/07/2020 [facility] 15 mg 06/09/2020 12:00:00 AM EDT tablet 180 TAKE 1 TABLET EVERY 4 HOURS NEEDED PAIN MAXIMUM DAILY DOSE = 6 TAKE 1 TABLET EVERY 4 HOURS NEEDED PA IN MAXIMUM DAILY DOSE = 6 SOLD: 06/09/2020 [facility] Escitalopram 10 MG Oral Tablet ESCITALOPRAM OXALATE 06/01/2020 1 2:00:00 AM EDT tablet 30 TAKE ONE TABLET BY MOUTH EVERY D AY TAKE ONE TABLET BY MOUTH EVERY DAY SOLD: 06/01/2020 [facility] 15 mg 05/10/2020 12:00:00 AM EDT tablet 180 TAKE ONE TABLET BY MOUTH EVERY 4 HOURS NEEDED FOR PAIN MAXIMUM DAILY DOSE = 6 TABLETS TAKE ONE TABLET BY MOUTH EVERY 4 HOURS NEEDED FOR PAIN MAXIMUM DAILY DOSE = 6 TABLETS SOLD: 05/12/2020 [facility] 15 mg 04/13/2020 12:00:00 AM EDT tablet 180 TAKE ONE TABLET BY MOUTH EVERY 4 HOURS NEEDED FOR PAIN MAXIMUM DAILY DOSE = 6 TABLETS TAKE ONE TABLET BY MOUTH EVERY 4 HOURS NEEDED FOR PAIN MAXIMUM DAILY DOSE = 6 TABLETS SOLD: 04/15/2020 [facility] 15 mg 03/16/2020 12:00:00 AM EDT tablet 180 TAKE ONE TABLET BY MOUTH EVERY 4 HOURS NEEDED FOR PAIN MAXIMUM DAILY DOSE = SIX TABLETS TAKE ONE TABLET BY MOUTH EVERY 4 HOURS NEEDED FOR PAIN MAXIMUM DAILY DOSE = SIX TABLETS SOLD: 03/16/2020 [facility] 300 mg 03/10/2020 12:00:00 AM EDT capsule 90 TAKE ONE CAPSULE BY MOUTH EVERY MORNING AND TAKE TWO CAPSULES BY MOUTH AT BEDTIME TAKE ONE CAPSULE BY MOUTH EVERY MORNING AND TAKE TWO CAPSULES BY MOUTH AT BEDTIME SOLD: 03/16/2020 [facility] tizanidine 4 MG Oral Tablet TIZANIDINE HCL 03/10/2020 12:00:00 AM EDT tablet 90 TAKE ONE TABLET BY MOUTH THREE TIMES A DAY NEEDED F OR SPASMS TAKE ONE TABLET BY MOUTH THREE TIMES A DAY NEEDED FOR SPASMS SOLD: 09/07/2020 [facility] 4 mg 03/10/2020 12:00:00 AM EDT tablet 90 TAKE ONE TABLET BY MOUTH THREE TIMES A DAY NEEDED FOR SPASMS TAKE ONE TABLET BY MOUTH THREE TIMES A D AY NEEDED FOR SPASMS SOLD: 05/12/2020 [facility] 4 mg 03/10/2020 12:00:00 AM EDT tablet 90 TAKE ONE TABLET BY MOUTH THREE TIMES A DAY NEEDED FOR SPASMS TAKE ONE TABLET BY MOUTH THREE TIMES A D AY NEEDED FOR SPASMS SOLD: 03/16/2020 [facility] 300 mg 03/10/2020 12:00:00 AM EDT capsule 90 TAKE ONE CAPSULE BY MOUTH EVERY MORNING AND TAKE TWO CAPSULES BY MOUTH AT BEDTIME TAKE ONE CAPSULE BY MOUTH EVERY MORNING AND TAKE TWO CAPSULES BY MOUTH AT BEDTIME SOLD: 05/12/2020 [facility] 15 mg 02/17/2020 12:00:00 AM EDT tablet 180 TAKE ONE TABLET BY MOUTH EVERY 4 HOURS NEEDED FOR PAIN MAXIMUM DAILY DOSE = SIX TABLETS TAKE ONE TABLET BY MOUTH EVERY 4 HOURS NEEDED FOR PAIN MAXIMUM DAILY DOSE = SIX TABLETS SOLD: 02/17/2020 [facility] 17 gram/dose 02/13/2020 12:00:00 AM EDT powder 510 USE 17 GRAMS IN 8 OUNCES OF WATER DAILY FOR CONSTIPATION USE 17 GRAMS IN 8 OUNCES OF WATER DAILY FOR CONSTIPATION SOLD: 02/17/2020 [facility] 8.6-50 mg 02/13/2020 12:00:00 AM EDT tablet 60 TAKE ONE TO TWO TABLETS BY MOUTH EVERY DAY FOR CONSTIPATION TAKE ONE TO TWO TABLETS BY MOUTH EVERY D AY FOR CONSTIPATION SOLD: 02/17/2020 [facility] 1,250 mcg (50,000 unit) 01/25/2020 12:00:00 AM EDT capsule 12 TAKE 1 TABLET BY MOUTH EVERY WEEK FOR 12 WEEKS TAKE 1 TABLET BY MOUTH EVERY WEEK FOR 12 WEEKS SOLD: 02/04/2020 [facility] 5-325 mg 01/20/2020 12:00:00 AM EDT tablet 30 TAKE ONE TABLET BY MOUTH EVERY 6 HOURS NEEDED FOR POST OP PAIN MAXIMUM DAILY DOSE = FOUR TABLETS TAKE ONE TABLET BY MOUTH EVERY 6 HOURS NEEDED FOR POST OP PAIN MAXIMUM DAILY DOSE = FOUR TABLETS SOLD: 01/22/2020 [facility] Acetaminophen 325 MG / Oxycodone Hydrochloride 5 MG Or al Tablet [Percocet] Percocet 01/20/2020 12:00:00 AM EDT completed [facility] ([facility]) 15 mg 01/19/2020 12:00:00 AM EDT tablet 180 TAKE ONE TABLET BY MOUTH EVERY 4 HOURS NEEDED FOR PAIN MAXIMUM DAILY DOSE = 6 TABLETS TAKE ONE TABLET BY MOUTH EVERY 4 HOURS NEEDED FOR PAIN MAXIMUM DAILY DOSE = 6 TABLETS SOLD: 01/19/2020 [facility] 4 mg 01/14/2020 12:00:00 AM EDT tablet 90 TAKE ONE TABLET BY MOUTH THREE TIMES A DAY NEEDED FOR PAIN MAXIMUM DAILY DOSE = 3 TABLETS TAKE ONE TABLET BY MOUTH THREE TIMES A DAY NEEDED FOR PAIN MAXIMUM DAILY DOSE = 3 TABLETS SOLD: 01/19/2020 [facility] 300 mg 01/14/2020 12:00:00 AM EDT capsule 90 TAKE ONE CAPSULE BY MOUTH EVERY MORNING AND 2 AT BEDTIME TAKE ONE CAPSULE BY MOUTH EVERY MORNING AND 2 AT BEDTIME SOLD: 01/19/2020 [facility] 15 mg 01/07/2020 12:00:00 AM EST tablet 70 TAKE ONE TABLET BY MOUTH EVERY 4 HOURS NEEDED FOR PAIN MAXIMUM DAILY DOSE = 5 TABLETS TAKE ONE TABLET BY MOUTH EVERY 4 HOURS NEEDED FOR PAIN MAXIMUM DAILY DOSE = 5 TABLETS SOLD: 02/17/2020 [facility] 15 mg 12/23/2019 12:00:00 AM EST tablet 70 TAKE ONE TABLET BY MOUTH EVERY 4 HOURS NEEDED . MAXIMUM DAILY DOSE = 5 TABLETS TAKE ONE TABLET BY MOUTH EVERY 4 HOURS NEEDED . MAXIMUM DAILY DOSE = 5 TABLETS SOLD: 12/24/2019 [facility] 15 mg 12/10/2019 12:00:00 AM EST tablet 75 TAKE 1 1/2 TABLETS BY MOUTH EVERY 4 HOURS NEEDED FOR PAIN MAXIMUM DAILY DOSE = FIVE TABLETS TAKE 1 1/2 TABLETS BY MOUTH EVERY 4 HOURS NEEDED FOR PAIN MAXIMUM DAILY DOSE = FIVE TABLETS SOLD: 12/10/2019 [facility] 15 mg 11/11/2019 12:00:00 AM EST tablet 150 TAKE ONE TABLET BY MOUTH EVERY 4 HOURS NEEDED MAXIMUM DAILY DOSE = 5 TABLETS TAKE ONE TABLET BY MOUTH EVERY 4 HOURS NEEDED MAXIMUM DAILY DOSE = 5 TABLETS SOLD: 11/11/2019 [facility] 4 mg 06/24/2019 12:00:00 AM EDT tablet 60 TAKE ONE TABLET BY MOUTH TWICE A DAY NEEDED TAKE ONE TABLET BY MOUTH TWICE A DAY NEEDED SOLD: 11/12/2019 [facility] 100 mg 06/24/2019 12:00:00 AM EDT capsule 90 TAKE 1-3 CAPSULES BY MOUTH THREE TIMES A DAY NEEDED FOR PAIN TAKE 1-3 CAPSULES BY MOUTH THREE TIMES A DAY NEEDED FOR PAIN SOLD: 11/12/2019 [facility] gabapentin 100 MG Oral Capsule gabapenti n 100 mg capsule TAKE 1 3 CAPSULES BY MOUTH THREE TIMES A DAY NEEDED FOR PAIN gabapentin 100 mg capsule TAKE 1 3 CAPSULES BY MOUTH THREE TIMES A DAY NEEDED FOR PAIN completed gabapentin 100 MG Oral Capsule [facility] ([facility]) gabapentin 100 MG Oral Capsule gabapenti n 100 mg capsule TAKE 1 3 CAPSULES BY MOUTH THREE TIMES A DAY NEEDED FOR PAIN gabapentin 100 mg capsule TAKE 1 3 CAPSULES BY MOUTH THREE TIMES A DAY NEEDED FOR PAIN completed gabapentin 100 MG Oral Capsule CORAL ([facility]) cefdinir 300 MG Oral Capsule cefdinir 300 mg capsule cefdinir 30 0 mg capsule completed cefdinir 300 M G Oral Capsule CORAL ([facility]) 24 HR venlafaxine 75 MG Extended Release Oral Capsule venlafaxine ER 75 mg capsule,extended release 24 hr venlafaxine ER 75 mg capsule,extended re lease 24 hr completed 24 HR v enlafaxine 75 MG Extended Release Oral Capsule CORAL ([facility]) gabapentin 300 MG Oral Capsule gabapentin 300 mg capsu le gabapentin 300 mg capsule completed gabapentin 300 MG Oral Capsule CORAL ([facility]) Escitalopram 10 MG Oral Tablet escitalopram 10 mg tabl et escitalopram 10 mg tablet completed escitalopram 10 MG Oral Tablet [facility] ([facility]) Escitalopram 10 MG Oral Tablet escitalopram 10 mg tabl et escitalopram 10 mg tablet completed escitalopram 10 MG Oral Tablet [facility] ([facility]) Acetaminophen 325 MG / Oxycodone Hydroch loride 5 MG Oral Tablet oxycodone- acetaminophen 5 mg-325 mg tablet TAKE ONE TABLET BY MOUTH EVERY 6 HOURS NEEDED FOR POST OP PAIN MAXIMUM DAILY DOSE FOUR TABLETS oxycodone- acetaminophen 5 mg-325 mg tablet TAKE ONE TABLET BY MOUTH EVERY 6 HOURS NEEDED FOR POST OP PAIN MAXIMUM DAILY DOSE FOUR TABLETS completed acetaminophen 325 MG / oxycodone hydroch loride 5 MG Oral Tablet [facility] ([facility]) Escitalopram 10 MG Oral Tablet escitalopram 10 mg tabl et escitalopram 10 mg tablet completed escitalopram 10 MG Oral Tablet [facility] ([facility]) Escitalopram 10 MG Oral Tablet escitalopram 10 mg tabl et escitalopram 10 mg tablet completed escitalopram 10 MG Oral Tablet [facility] ([facility]) tizanidine 4 MG Oral Tablet tizanidine 4 mg tablet tizanidine 4 mg ta blet completed tizanidine 4 MG Oral Tablet [facility] ([facility]) 24 HR venlafaxine 75 MG Extended Release Oral Capsule venlafaxine ER 75 mg capsule,extended release 24 hr venlafaxine ER 75 mg capsule,extended re lease 24 hr completed 24 HR v enlafaxine 75 MG Extended Release Oral Capsule [facility]) 12 HR Dextromethorphan Hydrobromide 60 M G / Guaifenesin 1200 MG Extended Release Oral Tablet dextromethorphan-guaifenesin ER 60 mg-1,200 mg tab,extend release,12hr Take 1 tablet twice a day by oral route as needed for 7 days. dextromethorphan-guaifenesin ER 60 mg-1,200 mg tab,extend release,12hr Take 1 tablet twice a day by oral route as needed for 7 days. 1 completed 12 HR dextromethorphan hydrobromide 60 M G / guaifenesin 1200 MG Extended Release Oral Tablet [facility]) Acetaminophen 325 MG / Oxycodone Hydroch loride 5 MG Oral Tablet oxycodone- acetaminophen 5 mg-325 mg tablet TAKE ONE TABLET BY MOUTH EVERY 6 HOURS NEEDED FOR POST OP PAIN MAXIMUM DAILY DOSE FOUR TABLETS oxycodone- acetaminophen 5 mg-325 mg tablet TAKE ONE TABLET BY MOUTH EVERY 6 HOURS NEEDED FOR POST OP PAIN MAXIMUM DAILY DOSE FOUR TABLETS completed acetaminophen 325 MG / oxycodone hydroch loride 5 MG Oral Tablet [facility] ([facility]) tizanidine 4 MG Oral Tablet tizanidine 4 mg tablet tizanidine 4 mg ta blet completed tizanidine 4 MG Oral Tablet [facility] ([facility]) gabapentin 100 MG Oral Capsule gabapenti n 100 mg capsule TAKE 1 3 CAPSULES BY MOUTH THREE TIMES A DAY NEEDED FOR PAIN gabapentin 100 mg capsule TAKE 1 3 CAPSULES BY MOUTH THREE TIMES A DAY NEEDED FOR PAIN completed gabapentin 100 MG Oral Capsule [facility]) gabapentin 100 MG Oral Capsule gabapenti n 100 mg capsule TAKE 1 3 CAPSULES BY MOUTH THREE TIMES A DAY NEEDED FOR PAIN gabapentin 100 mg capsule TAKE 1 3 CAPSULES BY MOUTH THREE TIMES A DAY NEEDED FOR PAIN completed gabapentin 100 MG Oral Capsule [facility] ([facility]) Insurance Providers Payer name Policy type / Coverage type Policy ID Covered democrat ID Covered democrat's relationship to cali Policy Cali Plan Information EMEDNY [id number] SP [id number] [facility] [id number] SP [id number] Managed Care - [facility] Community Plan P [id number] S [id number] Medicaid S [id number] S [id number] [facility](MCAID) O [id number] S [id number] Managed Care - [facility] Community Plan P [id number] S [id number] [employer] [id number] SP [id number] MEDICAID [id number] SP [id number] Managed Care - [facility] Community Plan P [id number] S [id number] Medicaid S [id number] S [id number] TRAVELERS WC O [id number] S [id number] [employer] COMP [id number] SP [id number] [place] [id number] SP [id number] [place] K [id number] SP [id number] [facility] COMMUNITY PLAN MCDO [id number] SP [id number] [facility] COMMUNITY PLAN MCDO [id number] SP [id number] [facility] MEDICAID [id number] S [id number] [facility] Maintenance Organization (HMO) [id number] Self [id number] [facility] MEDICAID [id number] S [id number] Managed Care - Community Plan [facility] P [id number] S [id number] [facility] COMMUNITY PLAN [facility] [id number] Problems, Conditions, and Diagnoses Code Display Name Description Problem Type Effective Dates Data Source(s) V60.0 Homeless single person Homeless single person 08/10/2020 03:16:20 PM EDT [facility] 296.32 DEPRESSIVE DISORDER, MAJOR, RECURRENT EP ISODE, MODERATE DEPRESSIVE DISORDER, MAJOR, RECURRENT EPISODE, MODERATE 06/25/2020 02:1 8:33 PM EDT [facility] [id number] Moderate recurrent major depression Mode rate Recurrent Major Depression Problem 06/25/2020 12:00:00 AM EDT [facility] ([facility]) 12019383 Moderate recurrent major depression Mode rate Recurrent Major Depression Problem 06/25/2020 12:00:00 AM EDT [facility] ([facility]) [id number] Moderate recurrent major depression Mode rate Recurrent Major Depression Problem 06/25/2020 12:00:00 AM EDT [facility] ([facility]) 82411942 Moderate recurrent major depression Mode rate Recurrent Major Depression Problem 06/25/2020 12:00:00 AM EDT [facility]) 268.9 vitamin D deficiency vitamin D deficiency 01/23 09:31:39 PM EDT [facility] 22603350 Vitamin D deficiency Vitamin D Deficiency Problem 01/24/2020 12:00:00 AM EDT [facility] ([facility]) 91583138 Vitamin D deficiency Vitamin D Deficiency Problem 01/24/2020 12:00:00 AM EDT [facility] ([facility]) 87140366 Vitamin D deficiency Vitamin D Deficiency Problem 01/24/2020 12:00:00 AM EDT [facility] ([facility]) 90954529 Vitamin D deficiency Vitamin D Deficiency Problem 01/24/2020 12:00:00 AM EDT [facility] ([facility]) Surgeries/Procedures Procedure Description Date Indications Data Source(s) XR, chest, 2 view 11/25/2020 12:00:00 AM EST [facility] ([facility]) Needle electromyography, each extremity, with related paraspinal areas, when performed, done with nerve conduction, amplitude and latency/velocity study; complete, five or more muscles studied, innervated by three or more nerves or four or more spinal levels (list separately in addition to the code for primary procedure). 09/23/2020 12:00:00 AM EST MEDEN T ([facility] ) 37438 Nerve conduction studies 13 or more studies NEW 201209/23/2020 12:00:00 AM EST [facility] ([facility] ) THERAPEUTIC PX 1/> AREAS EACH 15 MIN EXERCISES 12:00:00 AM EDT [facility] ([facility] ) Ultrasound, Each 15 Min, Constant Attendance 0 12:00:00 AM EDT [facility] ([facility] ) THERAPEUTIC PX 1/> AREAS EACH 15 MIN EXERCISES 12:00:00 AM EDT [facility] ([facility] ) THERAPEUTIC PX 1/> AREAS EACH 15 MIN EXERCISES 12:00:00 AM EDT [facility] ([facility] ) THERAPEUTIC PX 1/> AREAS EACH 15 MIN EXERCISES 12:00:00 AM EDT [facility] ([facility] ) Ultrasound, Each 15 Min, Constant Attendance 0 12:00:00 AM EDT [facility] ([facility] ) THERAPEUTIC PX 1/> AREAS EACH 15 MIN EXERCISES 12:00:00 AM EDT [facility] ([facility] ) THERAPEUTIC PX 1/> AREAS EACH 15 MIN EXERCISES 12:00:00 AM EDT [facility] ([facility] ) THERAPEUTIC PX 1/> AREAS EACH 15 MIN EXERCISES 12:00:00 AM EDT [facility] ([facility] ) THERAPEUTIC PX 1/> AREAS EACH 15 MIN EXERCISES 12:00:00 AM EDT [facility] ([facility] ) THERAPEUTIC PX 1/> AREAS EACH 15 MIN EXERCISES 12:00:00 AM EDT [facility] ([facility] ) THERAPEUTIC PX 1/> AREAS EACH 15 MIN EXERCISES 12:00:00 AM EDT [facility] ([facility] ) THERAPEUTIC PX 1/> AREAS EACH 15 MIN EXERCISES 12:00:00 AM EDT [facility] ([facility] ) THERAPEUTIC PX 1/> AREAS EACH 15 MIN EXERCISES 12:00:00 AM EDT [facility] ([facility] ) THERAPEUTIC PX 1/> AREAS EACH 15 MIN EXERCISES 12:00:00 AM EDT [facility] ([facility] ) THERAPEUTIC PX 1/> AREAS EACH 15 MIN EXERCISES 12:00:00 AM EDT [facility] ([facility] ) Physical Therapy Eval - Low Complexity 05/05/2020 12:0 0:00 AM EDT [facility] ([facility] ) Physical Therapy Eval - Low Complexity 05/03/2020 12:0 0:00 AM EDT [facility] ([facility] ) RADEX SHOULDER COMPLETE MINIMUM 2 VIEWS 04/23/2020 12: 00:00 AM EDT [facility] ([facility] ) RADEX SHOULDER COMPLETE MINIMUM 2 VIEWS 04/23/2020 12: 00:00 AM EDT [facility] ([facility] ) RADEX WRIST 2 VIEWS 04/19/2020 12:00:00 AM EDT [facility] ([facility] ) RADEX WRIST 2 VIEWS 03/05/2020 12:00:00 AM EDT [facility] ([facility] ) OPTX DSTL RADL I-ARTIC FX/EPIPHYSL SEP 3 FRAG 01/20/20 20 12:00:00 AM EDT [facility] ([facility] ) RADEX WRIST 2 VIEWS 01/19/2020 12:00:00 AM EDT [facility] ([facility] ) CLTX DSTL RADIAL FX/EPIPHYSL SEP W/O MANJ 01/09/2020 1 2:00:00 AM EST [facility] ([facility] ) RADEX WRIST 2 VIEWS 01/09/2020 12:00:00 AM EST [facility] ([facility] ) Results ID Date Data Source [id number] 11/12/2020 02:25:00 PM EST [facility] ([facility] ) Name Value Range Interpretation Code Description Data Kristine rce(s) Supporting Document(s) Covid Rapid Testing Laboratory test result [facility] ([facility]) ID Date Data Source [id number] 10/06/2020 01:02:00 PM EST [facility] ([facility] ) Name Value Range Interpretation Code Description Data Kristine rce(s) Supporting Document(s) Laboratory test finding (navigational concept) Laboratory test result [facility] ([facility]) ID Date Data Source [id number] 08/18/2020 10:02:21 AM EDT [facility] In-House Blood TestsDate/Time Colle cted: August 18, 2020 9:18 AMTest Result Reference Range Normal ValueComments: Blood drawn in office from right AC, tolerated wellNicole Smiat HOLLINS, August 18, 2020 10:03 AMAssessment & Plan Orders:[id number] Vst-Est Level I [CPT-51474] 57015 - Venipuncture [CPT-79190] Name Value Range Interpretation Code Description Data Kristine rce(s) Supporting Document(s) ID Date Data Source [id number] 08/18/2020 09:18:00 AM EDT [facility] Name Value Range Interpretation Code Description Data Kristine rce(s) Supporting Document(s) BG FASTING 97 mg/dL 70-100 N [facility] T4, FREE 0.99 ng/dL 0.76-1.46 N [facility] TSH 3.090 microintl units/mL 0.358-3.740 N [facility] VIT D25 TOT 71.9 ng/mL 30.0-100.0 N [facility] ID Date Data Source [id number] 08/18/2020 09:18:00 AM EDT [facility] Name Value Range Interpretation Code Description Data Kristine rce(s) Supporting Document(s) HCT 49.6 % 42.0-52.0 N [facility] HGB 15.9 g/dL 13.5-17.5 N [facility] MCH 32.1 G/DL pg 32.0-36.[address] [facility] MCHC 30.3 PG % 27.0-33.0 N [facility] PLATELETS 282 10 10*3/mm3 150-450 N [facility] RBC 5.25 10 10*6/mm3 4.30-6.10 N [facility] RDW 13.3 % 11.5-14.5 N [facility] WBC TOTAL 13.5 4.0-10.0 H [facility] ID Date Data Source [id number] 08/10/2020 03:08:37 PM EDT [facility] Housing Safety & Stability Do you feel s afe in your current environment? YesAt any time in the past year have you been at a temporary address because you could not find/did not have a permanent home? YesIf yes, check all that apply: Street or WoodsReasons for housing difficulties: Evicted (other), Unemployed (not searching for work)Disability Information Disabled NoPhysical/Medical Disability NoDevelopmental Disability NoOther Disability - Comments Patient states he has back and neck pain that prevents him from working Behavioral Health Information Behavioral Health Condition? YesTaking psychotropic medications? YesCurrently involved in services? YesSubstance Use Information Current Tobacco User YesSubstance Abuse NoSubstance Abuse - Involved in Services? NoDemographic Information Employed NoVeteran NoHousehold - Family Size 1Household - Total Monthly Income 0Benefit Information Type(s) of Income and [place] Benefits received by you and those living with you: Relatives/Parents/Friends, Baptism()Non-[place] Benefirts MedicaidTransportation Current Transportation Used: Medicaid TransportationNeeds Assessment Housing Current Housing: Homeless (Outside/Squatting)Sources of income: Family/Friend supportOther: Evicted by landlordWhat services has client accessed in the past or is currently accessing? Patient has accessed social work professor assistance in pastHousing Interventions Goals: Housing access/referral, ResourcesInterventions: Case managementBasic Needs Current assessment of basic needs: Infrequent access to basis needs, Accessing DHS/Public Aid benefits, Access to transportationBasic Needs I nterventions Goals: Obtain DHS/Public Aid benefits, ResourcesOther: Care Coordination referral Work and Education Current assessment of work: Unemployed - not seeking employmentOther: Patient seeking to apply for [facility] Current assessment of health: Regular access to healthcareHealth Interventions Goals: Maintain healthInterventions: Case managementMental Health Current assessment of mental health: Regular access to healthcare specific to mental healthMental Health Interventions Goals: Maintain mental health, Identify a support systemInterventions: Case managementAssessment & Plan Problems:Added: Homeless single person (ICD-V60.0) (JGO65-O24.0) Name Value Range Interpretation Code Description Data Kristine rce(s) Supporting Document(s) ID Date Data Source [id number] 07/29/2020 04:36:28 PM EDT [facility] Measurements & CalculationsHeight: 70 inches (5 ft. 10 in.) 177.80 cm Weight: 156 pounds 70.91 kg Body Mass Index (BMI): 22.46BMI Interpretation: Healthy WeightBody Surface Area (BSA): 1.88Weight Management Education Done (Nutrition/Physical Activity)Vital SignsTemperature: 98.7FPulse Rate: 72 beats/minuteRespiratory Rate: 16 respirations/minuteBlood Pressure: 103/69 O2 Saturation: 99% Vital Signs performed by: Haylie Caldera MA, July 29, 2020 4:41 PMInitial Intake Information From: patientRoom #: 14Infectious Disease / Travel ScreeningRecent travel for you or any close contacts? NoHave you had any close contact with anyone diagnosed with or under investigation for COVID-19 (coronavirus)? NoFever? NoRespiratory symptoms: cough, cold, congestion, shortness of breath, difficulty breathing? NoLoss of smell? NoLoss of taste? NoSmoking, Tobacco, Vaping or Smoke Exposure StatusSmoke Status: current every d ay smokerTobacco Use: YesAdv to Quit: YesDo you vape? NoHealthcare HistorySince your last office visit...Have you been admitted to the hospital? NoHave you been to an emergency room (ER) or urgent care clinic? No - [facility] Emergency room (ER) or urgent care date reported today: 06/10/2019Have you seen another healthcare provider? Yes - orthoHealthcare provider date reported today: 06/17/2020Have you seen a dentist? No - NCFHCIntake performed by: Haylie Caldera MA, July 29, 2020 4:39 PMRate Your HealthIn general, would you say your health is? FairPain AssessmentAre you currently having any pain which... You would like your provider to address? No Affects your activity level? NoDepression Screening - PHQ-2Over the last two weeks, have you... Had little interest or pleasure in doing things? Not at all Been feeling down, depressed, or hopeless? Not at all PHQ-2 Score: 0Anxiety Screening - DELMER-2Over the last two weeks, have you been... Feeling nervous, anxious, or on edge? Not at all Unable to stop or control worrying? Not at all DELMER-2 Score: 0Screening, Brief Intervention, & Referral to Treatment (SBIRT)Pre-Screening Questions How many times have you have 5 or more drinks in a day? 0How many times have you used an illegal drug or used a prescription medication for a non- medical reason? 180Performed by: Haylie Caldera MA, July 29, 2020 4:39 P MPatient History Medical History:Degenerative joint diseaseSurgical History:leg sxFamily History:Cancer - Lung (Father)Liver disease (Mother)Social/Personal History: Advised to Quit/Tobacco Education: YesChief ComplaintmedsHistory of Present Illness (HPI)Seeing Jerardo Powell for medications for his anxiety and depression and was started on Effexor 3 weeks ago. Has not seen any positive effects yet and is not having any adverse effects.Having some malaise and fatigue. This has been going on for a while and is no worse and no better with time.Requesting refill on Vitamin D. It was low 3 months ago and has not been checked since.No thoughts of self harm.HPI performed by: Patricio Gonzalez MD, July 29, 2020 4:46 PMTransitions of Care InboundProblem ReviewProblem List was reviewed and/or updated during this visit.Medication Reconciliation & ReviewMedication List was reviewed and/or updated during this visit, including review of any bmal-sxs-frqisra medications, herbal therapies, and/or supplements.Allergy ReviewAllergy List was reviewed and/or updated during this visit.Adult Preventive CareProvider Calculated and Reviewed all Clinical Protocols for patient today. Screening Tobacco Screening: Smoking Status: current every day smoker (07/29/2020) Tobacco Use: Currently (07/29/2020) Advised to Quit: Yes (07/29/2020)Labs/Meds/Other Counseling-Nutrition and Physical Activity:BMI Interpretation: Healthy Weight (07/29/2020) Counseling: Done (07/29/2020) Physical Activity: Done (07/29/2020)Cancer Screening ColonoscopyReviewed:Previous Comments: would like one set up last one [facility] (06/01/2020)Today's Comments: would like a referralReview of Systems General: Complains of fatigue. Denies dizziness. Cardiovascular: Denies chest pain. Respiratory: Denies shortness of breath. Gastrointestinal: Denies diarrhea, constipation. Genitourinary: Denies pain with urination, urinary frequency, urinary urgency. Physical ExamGeneral Appearance: well nourished, well hydrated, no acute distressRespiratory, Auscultation: clear to auscultation bilaterally; no rales, rhonchi, or wheezesRespiratory, Effort: no intercostal retractions or use of accessory musclesCardiovascular, Auscultation: S1, S2 audible; no murmur, rub, or gallop; RRROrientation: oriented to time, place, and personMood & Affect: no depression, anxiety, or agitationJudgment & Insight: intactCare Management Plan Transitions of CareInboundRate Your HealthIn general, would you say your health is? FairAssessment & Plan Problems:Assessed:DEPRESSIVE DISORDER, MAJOR, RECURRENT EPISODE, MODERATE (ICD-296.32) (CEM63-V40.1) Assessment: Instructions: Recheck as scheduled for counselling and psychiatry here.This seems to be stable and with recent medication change.vitamin D deficiency (ICD-268.9) (GIB13-D38.9) Assessment: Instructions: Check Vitamin D level soon and check fasting blood tests soon.Recheck here 3 months, sooner as needed.Patient Instructions/Care Plan: DEPRESSIVE DISORDER- MAJOR- RECURRENT EPISODE- MODERATE: Recheck as scheduled for counselling and psychiatry here.This seems to be stable and with recent medication change.vitamin D deficiency: Check Vitamin D level soon and check fasting blood tests soon.Recheck here 3 months, sooner as needed. Plan developed in collaboration with patient and/or familyMedications:EFFEXOR XR 75 MG ORAL CAPSULE EXTENDED RELEASE 24 HOURVITAMIN D (ERGOCALCIFEROL) 00686 UNIT ORAL CAPSULEHYDROCODONE-ACETAMINOPHEN 5-325 MG ORAL TABLETEC-NAPROSYN 375 MG ORAL TABLET DELAYED RELEASENICODERM CQ 7 MG/24HR TRANSDERMAL PATCH 24 HOURNICODERM CQ 14 MG/24HR TRANSDERMAL PATCH 24 HOURTIZANIDINE HCL 4 MG ORAL TABLETGABAPENTIN 300 MG ORAL CAPSULEMedication Changes:Refilled:VITAMIN D (ERGOCALCIFEROL) 92989 UNIT ORAL CAPSULE-1 po q wk for 12 wks Qty: 12[Capsule] Refills: 0 Method: ElectronicAllergies:No Known Allergies (updated 07/08/2020) Orders:Adult - Ofc Vst, EST, Level III [CPT- 54738] COMP METABOLIC PANEL [CPT-73209] LIPID PANEL [CPT-90257] TSH [CPT-33246] T-4 free [CPT-22303] Vitamin D 250H Unspecified [CPT-51631] CBC W/DIFF [CPT- 18164] Medications:VITAMIN D (ERGOCALCIFEROL) 22953 UNIT ORAL CAPSULE (ERGOCALCIFEROL) 1 po q wk for 12 wks #12[Capsule] x 0 Route:ORAL Entered and Authorized by: Patricio Gonzalez MD Method used: Electronically to [facility] (retail) [address] [place] [address] Note to Pharmacy: Route: ORAL; Indications: VITAMIN D DEFICIENCY RxID: [id number] signed by Patricio Gonzalez MD on 07/29/2020 at 5:02 PM Name Value Range Interpretation Code Description Data Kristine rce(s) Supporting Document(s) ID Date Data Source [id number] 07/08/2020 01:39:40 PM EDT [facility] Patient History Medical History:Degenera tive joint diseaseSurgical History:leg sxFamily History:Cancer - Lung (Father)Liver disease (Mother)Social/Personal History: Smoking Status: current every day smokerDo you vape? NoCurrent Problems: DEPRESSIVE DISORDER, MAJOR, RECURRENT EPISODE, MODERATE (ICD-296.32) (DFO10-E91.1)vitamin D deficiency (ICD-268.9) (FPB99-R61.9)Acute bronchitis, unspecified (MKF69-H54.9)Hyperlipidemia (ICD-272.4) (ZQI66-C17.5)Prediabetes (ZPE00-R70.03)Major depressive disorder, single episode, unspecified (ICD10- F32.9)DENTAL CARIES EXTENDING INTO PULP (ICD-521.03) (OTH05-P48.63)Nicotine dependence, cigarettes, uncomplicated (XHK13-B34.210)Prediabetes (ICD10- R73.03)Congenital bilateral pes planus (YNT85-E39.51)Encounter for screening for malignant neoplasm of colon (ICD-V76.51) (SWJ84-X79.11)Pain in unspecified joint (UPT86-Y15.50)Encounter for screening for other metabolic disorders ( .228)Chronic neck pain (ICD-723.1) (BUU40-D58.2)Chronic low back pain (ICD-724.2) (MIZ67-W42.5)Problem list reviewed during this update.Current Medications: EFFEXOR XR 75 MG ORAL CAPSULE EXTENDED RELEASE 24 HOUR (VENLAFAXINE HCL) One in AM; Route: ORALVITAMIN D (ERGOCALCIFEROL) 46720 UNIT ORAL CAPSULE (ERGOCALCIFEROL) 1 po q wk for 12 wks; Route: ORALHYDROCODONE-ACETAMINOPHEN 5- 325 MG ORAL TABLET (HYDROCODONE-ACETAMINOPHEN) 1 po 1 4-6 hours prn severe pain; MDD 3; Route: ORALEC-NAPROSYN 375 MG ORAL TABLET DELAYED RELEASE (NAPROXEN) 1 po daily; Route: ORALNICODERM CQ 7 MG/24HR TRANSDERMAL PATCH 24 HOUR (NICOTINE) apply 1 patch daily; Route: TRANSDERMALNICODERM CQ 14 MG/24HR TRANSDERMAL PATCH 24 HOUR (NICOTINE) apply 1 patch daily; Route: TRANSDERMALTIZANIDINE HCL 4 MG ORAL TABLET (TIZANIDINE HCL) 1 tab bid prn; Route: ORALGABAPENTIN 300 MG ORAL CAPSULE (GABAPENTIN) po bid; Route: ORALMedication list reviewed during this update.Allergy list reviewed during this update.No known allergies.Patient declined [facility].Past Medical History:(reviewed - no changes required) Degenerative joint disease Dental Chart: Procedures:Type - CDT Code - Description C - (D2222) No Charge Visit (Performed by Gladis Link RDH) Chart Notes:perez (Jul 08 2020 1:48PM): Pt showed for his appointment but sidcould not stay due to transpportation issues. "I don't think I even need to be seen I was here before and we already know I need all of my teeth pulled." Discussed with pt that if he still wanted the referral placed for full mouth extractions and dentures I would place it. Stressed to pt the imporance of getting his treatment completed before he ends up in the hospital. Pt verbalized understanding and was provided the referral number in case he has not heard in 7-10 days. Referral placed again for treatment as described above. Gladis Link RDH by perez (07/08/2020 1:48 PM): Tooth Notes and Watches: Note: There are Un-Billed (C Type) procedures on this document.Assessment & Plan Medications:EFFEXOR XR 75 MG ORAL CAPSULE EXTENDED RELEASE 24 HOURVITAMIN D (ERGOCALCIFEROL) 05092 UNIT ORAL CAPSULEHYDROCODONE-ACETAMINOPHEN 5-325 MG ORAL TABLETEC-NAPROSYN 375 MG ORAL TABLET DELAYED RELEASENICODERM CQ 7 MG/24HR TRANSDERMAL PATCH 24 HOURNICODERM CQ 14 MG/24HR TRANSDERMAL PATCH 24 HOURTIZANIDINE HCL 4 MG ORAL TABLETGABAPENTIN 300 MG ORAL CAPSULEAllergies:No Known Allergies (updated 07/08/2020) Orders:Multi-Service Referral [CPT-51880] Clinical Visit Summary Declined Name Value Range Interpretation Code Description Data Kristine rce(s) Supporting Document(s) ID Date Data Source [id number] 06/01/2020 01:01:00 PM EDT [facility] Measurements & CalculationsHeight: 70 inches (5 ft. 10 in.) 177.80 cm Weight: 161 pounds 73.18 kg Body Mass Index (BMI): 23.18BMI Interpretation: Healthy WeightBody Surface Area (BSA): 1.91Weight Management Education Done (Nutrition/Physical Activity)Vital SignsTemperature: 97.5FPulse Rate: 70 beats/minuteRespiratory Rate: 16 respirations/minuteBlood Pressure: 127/82 O2 Saturation: 99% Vital Signs performed by: Haylie Caldera MA, June 01, 2020 1:12 PMInitial Intake Information From: patientRoom #: 14Infectious Disease / Travel ScreeningRecent travel for you or any close contacts? NoHave you had any close contact with anyone diagnosed with or under investigation for COVID-19 (coronavirus)? NoFever? NoRespiratory symptoms: cough, cold, congestion, shortness of breath, difficulty breathing? NoLoss of smell? NoLoss of taste? NoSmoking, Tobacco, Vaping or Smoke Exposure StatusSmoke Status: current every day smokerTobacco Use: YesAdv to Quit: YesDo you vape? NoHealthcare HistorySince your last office visit...Have you been admitted to the hospital? NoHave you been to an emergency room (ER) or urgent care clinic? No - Dr Marlyn russell [facility] Emergency room (ER) or urgent care date reported today: 06/10/2019Have you seen another healthcare provider? Yes - pain management, ortho, neuroHave you seen a dentist? Yes - NCFHCIntake performed by: Haylie Caldera MA, June 01, 2020 1:04 PMRate Your HealthIn general, would you say your health is? FairPain AssessmentAre you currently having any pain which... You would like your provider to address? No Affects your activity level? NoDepression Screening - PHQ-2Over the last two weeks, have you... Had little interest or pleasure in doing things? More than half the days Been feeling down, depressed, or hopeless? More than half the days PHQ-2 Score: 4Anxiety Screening - DELMER-2Over the last two weeks, have you been... Feeling nervous, anxious, or on edge? Several days Unable to stop or control worrying? Several days DELMER-2 Score: 2Generalized Anxiety Disorder 7-Item Screening (DELMER-7)Answer Guide:0 = Not at all1 = Several days2 = Over half the days3 = Nearly every dayOver the last 2 weeks, how often have you been bothered by the following problems?Feeling nervous, anxious, or on edge: 1Not being able to stop or control worryinWorrying too much about different things: 1Trouble relaxinBeing so restless that it's hard to sit still: 2Becoming easily annoyed or irritable: 1Feeling afraid as if something awful might happen: 1Answer Guide:0 = Not difficult at all1 = Somewhat difficult2 = Very difficult3 = Extremely difficultHow difficult have these made it for you to do your work, take care of things at home, or get along with other people? 3GAD-7 Screening Results DELMER-2 Score: 2GAD-7 Score: 8Functional Impairment: Extremely difficultRecommendation: Mild anxietyPHQ-9 1. Over the last 2 weeks, patient reports the following frequency of symptoms: a. Little interest or pleasure in doing things - More than half the days b. Feeling down, depressed, or hopeless -More than half the days c. Trouble falling asleep, staying asleep, or sleeping too much -More than half the days d. Feeling tired or having little energy -Nearly every day e. Poor appetite or overeating -Several days f. Feeling bad about yourself, feeling that you are a failure, or feeling that you have let yourself or your family down -Not at all g. Trouble concentrating on things such as reading the newspaper or watching television - More than half the days h. Moving or speaking so slowly that other people could have noticed. Or being so fidgety or restless that you have been moving around a lot more than usual -More than half the days i. Thinking that you would be better off or that you want to hurt yourself in some way -Not at all2. If you checked off any problems, how difficult have these problems made it for you to do your work, take care of things at home, or get along with other people? -Extremely DifficultToday's PHQ-9 Results Score: 14 Severity: Moderate Diagnosis Recommendation: Major Depression Functional Impairment: Extremely DifficultScreening, Brief Intervention, & Referral to Treatment (SBIRT)Pre-Screening Questions How many times have you have 5 or more drinks in a day? 0How many times have you used an illegal drug or used a pre scription medication for a non-medical reason? 0Performed by: Haylie Caldera MA, June 01, 2020 1:06 PMPatient History Medical History:Surgical History:leg sxFamily History:Cancer - Lung (Father)Liver disease (Mother)Social/Personal History: Advised to Quit/Tobacco Education: YesChief Complaintdepression/anxietyHistory of Present Illness (HPI)would like colonoscopy ordered family history of cancer.Anxiety and depression for the past 20 years. Worse for the past 6 months. Has has counselling in the past for this but has not been on medications for this. No thoughts of self harm.Chronic pain issues. Seeing the pain specialists for this and has been making adjustments in his pain medications because he feels that he is getting some fatigue from his medications.Thinking about applying for SSI. I explained that I don't generally do disability assessments and this is very early in the process to have this discussion.HPI performed by: Patricio Gonzalez MD, June 01, 2020 1:26 PMTransitions of Care InboundProblem ReviewProblem List was reviewed and/or updated during this visit.Medication Reconciliation & ReviewMedication List was reviewed and/or updated during this visit, including review of any sjxq-afz-qnooqqv medications, herbal therapies, and/or supplements.Allergy ReviewAllergy List was reviewed and/or updated during this visit.Adult Preventive CareProvider Calculated and Reviewed all Clinical Protocols for patient today. Screening Tobacco Screening: Smoking Status: current every day smoker (06/01/2020) Tobacco Use: Currently (06/01/2020) Advised to Quit: Yes (06/01/2020)Labs/Meds/Other Counseling- Nutrition and Physical Activity:BMI Interpretation: Healthy Weight (06/01/2020) Counseling: Done (06/01/2020) Physical Activity: Done (06/01/2020)Cancer Screening ColonoscopyReviewed:Previous Comments: will schudule in the future (02/04/2020)Today's Comments: would like one set up [facility] one [facility] Review of Systems General: Complains of fatigue. Denies dizz iness. Psychiatric: Complains of see HPI, depression, anxiety, feeling stressed. Denies suicidal ideation, homicidal ideation, hallucinations, paranoia. Physical ExamGeneral Appearance: well nourished, well hydrated, no acute distressRespiratory, Auscultation: clear to auscultation bilaterally; no rales, rhonchi, or wheezesRespiratory, Effort: no intercostal retractions or use of accessory musclesCardiovascular, Auscultation: S1, S2 audible; no murmur, rub, or gallop; RRRGait & Station: normalOrientation: oriented to time, place, and personMood & Affect: no depression, anxiety, or agitationJudgment & Insight: intactCare Management Plan Transitions of CareInboundRate Your HealthIn general, would you say your health is? FairAssessment & Plan Problems:Assessed:Major depressive disorder, single episode, unspecified (MQG12-Q21.9) Assessment: Instructions: Start Lexapro.Refer for counselling and telepsychiatry.Recheck here 1-2 months.Patient Instructions/Care Plan: Major depressive disorder- single episode- unspecified: Start Lexapro.Refer for counselling and telepsychiatry.Recheck here 1-2 months. Plan developed in collaboration with patient and/or familyMedications:LEXAPRO 10 MG ORAL TABLETVITAMIN D (ERGOCALCIFEROL) 50305 UNIT ORAL CAPSULEHYDROCODONE-ACETAMINOPHEN 5-325 MG ORAL TABLETEC-NAPROSYN 375 MG ORAL TABLET DELAYED RELEASENICODERM CQ 7 MG/24HR TRANSDERMAL PATCH 24 HOURNICODERM CQ 14 MG/24HR TRANSDERMAL PATCH 24 HOURTIZANIDINE HCL 4 MG ORAL TABLETGABAPENTIN 300 MG ORAL CAPSULEMedication Changes:New Prescription:LEXAPRO 10 MG ORAL TABLET-One tablet by mouth every day Qty: 30[Tablet] Refills: 2 Method: ElectronicRemoved:* NAPROXEN- prnAllergies:No Known Allergies (updated 02/04/2020) Orders:Adult - Ofc Vst, EST, Level III [CPT-45545] Mental Health Consult [CPT-02505] Telepsychiatry Consult [CPT-79848] Medications:LEXAPRO 10 MG ORAL TABLET (ESCITALOPRAM OXALATE) One tablet by mouth every day #30[Tablet] x 2 Route:ORAL Entered and Authorized by: Patricio Gonzalez MD Method used: Electronically to [facility] (retail) [address] [place] [address] Note to Pharmacy: Route: ORAL; RxID: [id number] signed by Patricio Gonzalez MD on 06/01/2020 at 2:24 PM Name Value Range Interpretation Code Description Data Kristine rce(s) Supporting Document(s) ID Date Data Source [id number] 05/26/2020 12:00:00 AM EDT [facility] Patient Name: CHAYA ESCOBAR [id number] Date of : 1965[address] Date of Exam: 05/26/2020JORDON Vazquez [id number]#: Fax: [phone] EXAM: MRI SHOULDER LEFT W/O&W/CONTRAST ARTHROGRAMCLINICAL INFORMATION: Pain and decreased range of motion.There are no priors for comparison.The glenohumeral injection was performed by HIRA Dodson.The preinjection portion of the examination shows moderate hypertrophicdegenerative change within the acromioclavicular join along with [id number] seen within and on both sides of the AC joint. The acromionprocess is type 3. There is patchy and linear T2 hypersignal seenthroughout the supraspinatus tendon. Normal appearing low signal is seenthroughout the subscapularis, infraspinatus, teres minor tendons. Thebiceps tendon resides within the bicipital groove. There is no glenohumeraljoint effusion. There is some evidence of coracohumeral and coracoacromialligamentous thickening.The post-injection portion of the examination shows linear hypersignalchanges in the superior labrum which is anterior to posterior. Theglenohumeral ligaments are intact. None of the fluid has migrated superiorto the supraspinatus tendon.IMPRESSION:1. There is a slap labral tear.2. There is supraspinatus tendonitis/tendinosis.3. AC joint DJD and edema with a type 3 acromion process seen inconjunction with coracohumeral and coracoacromial ligamentous thickeningall consistent with a clinical diagnosis of impingement syndrome.Accredited by the [employer] in [place].FAITH Donovan/Araceli you for referring CHAYA ESCOBAR to our office. Electronically Signed - NINA DOLL DO 05/28/20 14:48 Name Value Range Interpretation Code Description Data Kristine rce(s) Supporting Document(s) ID Date Data Source [id number] 05/26/2020 12:00:00 AM EDT [facility] Patient Name: CHAYA ESCOBAR [id number] [facility] Date of : 1965[place] [address] Date of Exam: 05/26/2020BeverlyJORDON ba [id number]#: Fax: [phone] EXAM: INJECTION PROCEDURE FOR SHOULDER ARTHROGRAMLEFT SHOULDER ARTHROGRAM:The procedure was performed by Dawit Luna [facility], under the generalsupervision of Dr. Tavarez.The benefits and risks including but not limited to pain, infection,bleeding and anaphylaxis were explained to the patient and informed consentwas obtained. The left glenohumeral joint space was localized usingfluoroscopic guidance. The skin was prepped and draped in a sterilefashion. 1% Lidocaine was used as a local anesthetic. Using fluoroscopicguidance, a #22 gauge needle was inserted and advanced into the joint. 0.5cc of Omnipaque 300 was injected to verify placement. 11 cc of a solutioncontaining 20 cc of sterile saline and 0.15 cc of ProHance was injectedinto the joint space. The needle was removed and the patient was taken toMRI for post procedural imaging.The patient tolerated the procedure well and there were no immediatecomplications.Fluoroscopic images are performed with last image hold technology. Theseimages require no additional radiation to acquire.Fluoroscopy time was 2 seconds at 3 pulses/second. This is equal to 0.5seconds continuous fluoroscopy time which is a 75% reduction in radiation.Dictated by HIRA Maurice, with Dr. Tavarez.DEVANTE Nguyen/Charito you for referring CHAYA ESCOBAR to our office. Electronically Signed - ERIC TAVAREZ MD 05/28/20 16:06 Name Value Range Interpretation Code Description Data Kristine rce(s) Supporting Document(s) ID Date Data Source [id number] 05/26/2020 12:00:00 AM EDT [facility] Patient Name: CHAYA ESCOBAR [id number] [facility] Date of : 1965[place] [address] Date of Exam: 05/26/2020[place], [place] [id number]#: Fax: [phone] EXAM: INJECTION PROCEDURE FOR SHOULDER ARTHROGRAMLEFT SHOULDER ARTHROGRAM:The procedure was performed by HIRA Maurice, under the generalsupervision of Dr. Tavarez.The benefits and risks including but not limited to pain, infection,bleeding and anaphylaxis were explained to the patient and informed consentwas obtained. The left glenohumeral joint space was localized usingfluoroscopic guidance. The skin was prepped and draped in a sterilefashion. 1% Lidocaine was used as a local anesthetic. Using fluoroscopicguidance, a #22 gauge needle was inserted and advanced into the joint. 0.5cc of Omnipaque 300 was injected to verify placement. 11 cc of a solutioncontaining 20 cc of sterile saline and 0.15 cc of ProHance was injectedinto the joint space. The needle was removed and the patient was taken toMRI for post procedural imaging.The patient tolerated the procedure well and there were no immediatecomplications.Fluoroscopic images are performed with last image hold technology. Theseimages require no additional radiation to acquire.Fluoroscopy time was 2 seconds at 3 pulses/second. This is equal to 0.5seconds continuous fluoroscopy time which is a 75% reduction in radiation.Dictated by HIRA Maurice, with Dr. Tavarez.DEVANTE Nguyen/Charito you for referring CHAYA ESCOBAR to our office. Electronically Signed - ERIC TAVAREZ MD 05/28/20 16:06 Name Value Range Interpretation Code Description Data Kristine rce(s) Supporting Document(s) ID Date Data Source [id number] 03/03/2020 03:21:44 PM EDT [facility] Measurements & CalculationsHeight: 70 inches (5 ft. 10 in.) 177.80 cm Weight: 171 pounds 3 oz. 77.81 kg Body Mass Index (BMI): 24.65BMI Interpretation: Healthy WeightBody Surface Area (BSA): 1.96Vital SignsTemperature: 98.9F oral Pulse Rate: 89 beats/minuteRespiratory Rate: 20 respirations/minuteBlood Pressure: 128/82 right arm sitting automaticO2 Saturation: 97% room airVital Signs performed by: Timothy Mckay MA, March 03, 2020 3:31 PMInitial Intake Information From: patientRoom #: 14Infectious Disease / Travel ScreeningRecent travel for you or any close contacts? NoHave you had any close contact with anyone diagnosed with or under investigation for COVID-19 (coronavirus)? NoFever? NoRespiratory symptoms: cough, cold, congestion, shortness of breath, difficulty breathing? YesLoss of smell? NoLoss of taste? NoSmoking, Tobacco, Vaping or Smoke Exposure StatusSmoke Status: curr ent every day smokerTobacco Use: YesAdv to Quit: YesDo you vape? NoPassive Smoke Exposure: YesHealthcare HistorySince your last office visit...Have you been admitted to the hospital? NoHave you been to an emergency room (ER) or urgent care clinic? NoHave you seen another healthcare provider? Yes - pain management, ortho, neuroHave you seen a dentist? Yes - NCFHCIntake performed by: Timothy Mckay MA, March 03, 2020 3:26 PMRate Your HealthIn general, would you say your health is? FairPain AssessmentAre you currently having any pain which... You would like your provider to address? Yes Affects your activity level? YesDepression Screening - PHQ-2Over the last two weeks, have you... Had little interest or pleasure in doing things? Not at all Been feeling down, depressed, or hopeless? Not at all PHQ-2 Score: 0Anxiety Screening - DELMER-2Over the last two weeks, have you been... Feeling nervous, anxious, or on edge? Not at all Unable to stop or control worrying? Not at all DELMER-2 Score: 0Food InsecurityWithin the past year...Did you worry whether your food would run out before you got money to buy more? NoWas there a time when the food you bought didn't last and you didn't have money to get more? NoPain AssessmentPain ScaleNumeric Rating Scale: 7 / 10Location: full bodyDuration: chronicFrequency: DailyCharacter/Quality: aching, dull and throbbingIs the pain radiating? NoScreening, Brief Intervention, & Referral to Treatment (SBIRT)Pre- Screening Questions How many times have you have 5 or more drinks in a day? 0How many times have you used an illegal drug or used a prescription medication for a non-medical reason? 0Performed by: Timothy Mckay MA, March 03, 2020 3:27 PMPatient History Social/Personal History: Advised to Quit/Tobacco Education: YesChief Complaintpain F/U, Sore throat and flu symptoms RM 14History of Present Illness (HPI)54 yr old male Pt here today for a 1 mon pain F/U. Pt also complains of sore throat, and flu symptoms. Pt states he has full body pain. Pt states he is taking all medications with no side effects. URI symptoms since yesterday. No better and no worse with time. Has Dayqui and Nyquil at home but has not taken it yet. No fever. Chills. No shaking chills. Runny nose. Stuffy nose. No cough. No shortness of breath.Sees palliative care and they have him on Roxicodone and this helps. No adverse effects. Injections in the past with minimal relief. They are talking about referring him to interventional pain clinic. No records from them on chart today.HPI performed by: Patricio Gonzalez MD, March 03, 2020 3:34 PMTransitions of Care InboundAdult Preventive CareScreening Tobacco Screening: Smoking Status: current every day smoker (03/03/2020) Tobacco Use: Currently (03/03/2020) Advised to Quit: Yes (03/03/2020)Review of Systems General: Denies dizziness, fatigue. Cardiovascular: Denies chest pain. Respiratory: Denies shortness of breath. Physical ExamGeneral Appearance: well nourished, well hydrated, no acute distressRespiratory, Auscultation: clear to auscultation bilaterally; no rales, rhonchi, or wheezesRespiratory, Effort: no intercostal retractions or use of accessory musclesCardiovascular, Auscultation: S1, S2 audible; no murmur, rub, or gallop; RRRGait & Station: normalCervical Nodes: no adenopathyOrientation: oriented to time, place, and personMood & Affect: no depression, anxiety, or agitationJudgment & Insight: intactCare M anagement Plan Transitions of CareInboundRate Your HealthIn general, would you say your health is? FairAssessment & Plan Problems:Assessed:Chronic low back pain (ICD-724.2) (DGK89-X48.5) Assessment: Instructions: Recheck as scheduled with pallitavie care and have them send us records of your care.URI symptoms of what is a likely a non-specific viral URI. Symptomatic treatment and recheck if symptoms persist or worsen.Patient Instructions/Care Plan: Chronic low back pain: Recheck as scheduled with pallitavie care and have them send us records of your care.URI symptoms of what is a likely a non-specific viral URI. Symptomatic treatment and recheck if symptoms persist or worsen. Plan developed in collaboration with patient and/or familyOrders:Adult - Ofc Vst, EST, Level III [CPT-36409] Name Value Range Interpretation Code Description Data Kristine rce(s) Supporting Document(s) ID Date Data Source [id number] 02/04/2020 03:01:06 PM EDT [facility] Measurements & CalculationsHeight: 70 inches (5 ft. 10 in.) 177.80 cm Weight: 174 pounds 8 oz. 79.32 kg Body Mass Index (BMI): 25.13BMI Interpretation: OverweightBody Surface Area (BSA): 1.97Weight Management Education Done (Nutrition/Physical Activity)Vital SignsTemperature: 98.3FPulse Rate: 85 beats/minuteRespiratory Rate: 14 respirations/minuteBlood Pressure: 107/77 O2 Saturation: 93% Vital Signs performed by: Ro Dinh LPN, February 04, 2020 3:03 PMVital Signs performed by: Ro Dinh LPN, February 04, 2020 3:03 PMInitial Intake Information from: patientRoom #: 14Smoking, Tobacco, Vaping or Smoke Exposure StatusSmoke Status: current every day smokerTobacco Use: YesAdv to Quit: YesDo you vape? NoPassive Smoke Exposure: NoHealthcare HistorySince your last office visit...Have you been admitted to the hospital? NoHave you been to an emergency room (ER) or urgent care clinic? Yes - [facility] Have you seen another healthcare provider? Yes - Pain management, ortho, Neuro Have you seen a dentist? Yes - NCFHRate Your HealthIn general, would you say your health is? GoodPain AssessmentAre you currently having any pain which... You would like your provider to address? No Affects your activity level? NoDepression Screening - PHQ-2Over the last two weeks, have you... Had little interest or pleasure in doing things? Not at all Been feeling down, depressed, or hopeless? More than half the days PHQ-2 Score: 2Anxiety Screening - DELMER-2Over the last two weeks, have you been... Feeling nervous, anxious, or on edge? Not at all Unable to stop or control worrying? Not at all DELMER-2 Score: 0Food InsecurityWithin the past year...Did you worry whether your food would run out before you got money to buy more? NoWas there a time when the food you bought didn't last and you didn't have money to get more? NoInfectious Disease / Travel ScreeningRecent travel for you or any close contacts? NoHave you had any close contact with anyone diagnosed with or under investigation for COVID-19 (coronavirus)? NoHave you had any of the following symptoms recently? Fever? NoRespiratory symptoms: cough, cold, congestion, shortness of breath, difficulty breathing? NoPRAPARE Sociodemographic Characteristics Race: White Ethnicity: Not or Preferred Language: EnglishFamily and Home Address: [address] [place] [address] What is your housing situation today? I have housing Are you worried about losing your housing? NoMoney and Resources In the past year, have you or any family members you live with been unable to get any of the following when it was really needed? Denies Insecurity: food, utilities, clothing, child protective services specialist, phone, legal services, otherWithin the past year did you worry whether your food would run out before you got money to buy more? NoWithin the past year was there a time when the food you bought didn't last and you didn't have money to get more? NoSocial and Emotional Health How often do you see or talk to people that you care about and feel close to? 3 to 5 times a week How stressed are you? SomewhatAdditional Optional Domains Do you feel physically and emotionally safe where you live? Yes In the past year, have you been afraid of a partner, ex-partner? NoPHQ-9 1. Over the last 2 weeks, patient reports the following fr equency of symptoms: a. Little interest or pleasure in doing things -Not at all b. Feeling down, depressed, or hopeless -More than half the days c. Trouble falling asleep, staying asleep, or sleeping too much -More than half the days d. Feeling tired or having little energy - Nearly every day e. Poor appetite or overeating -Not at all f. Feeling bad about yourself, feeling that you are a failure, or feeling that you have let yourself or your family down -Not at all g. Trouble concentrating on things such as reading the newspaper or watching television -More than half the days h. Moving or speaking so slowly that other people could have noticed. Or being so fidgety or restless that you have been moving around a lot more than usual -Not at all i. Thinking that you would be better off or that you want to hurt yourself in some way -Not at all2. If you checked off any problems, how difficult have these problems made it for you to do your work, take care of things at home, or get along with other people? -Very DifficultToday's PHQ-9 Results Score: 9 Severity: Mild Diagnosis Recommendation: Other Depression Functional Impairment: Very DifficultScreening, Brief Intervention, & Referral to Treatment (SBIRT)Pre- Screening Questions How many times have you have 5 or more drinks in a day? 0How many times have you used an illegal drug or used a prescription medication for a non-medical reason? 0Performed by: Ro Dinh LPN, February 04, 2020 3:17 PMPatient History Social/Personal History: Advised to Quit/Tobacco Education: YesChief ComplaintLab follow up and Referral for Mental health room 14History of Present Illness (HPI)54 yo here for follow up labs and needs referrals to ortho and Neuro 6 months since his last visit. He has trouble making it to appointments with us andwith specialists. Some of it is from transportation issues and some due to problems keeping track of appointments.Sees Ortho for some but not all of his joint issues. No records on chart for this recently. We will get most recent notes.Has seen neurology in the past for pain issues too but it has been a while. We will also get the records for this as well.HPI performed by: Patricio Gonzalez MD, February 04, 2020 5:56 PMTransitions of Care InboundProblem ReviewProblem List was reviewed and/or updated during this visit.Medication Reconciliation & ReviewMedication List was reviewed and/or updated during this visit, including review of any kxjr-cpv-zithast medications, herbal therapies, and/or supplements.Allergy ReviewAllergy List was reviewed and/or updated during this visit. Patient has no known allergies.Adult Preventive CareProvider Calculated and Reviewed all Clinical Protocols for patient today. Screening Tobacco Screening: Smoking Status: current every day smoker (02/04/2020) Tobacco Use: Currently (02/04/2020) Advised to Quit: Yes (02/04/2020)Labs/Meds/Other Counseling-Nutrition and Physical Activity:BMI Interpretation: Overweight (02/04/2020) Counseling: Done (02/04/2020) Physical Activity: Done (02/04/2020)Cancer Screening ColonoscopyReviewed:Previous Comments: Ride fell through, rescheduled for later 2019. (08/18/2019)Today's Comments: will schudule in the future Review of Systems General: Denies chills, fever. Cardiovascular: Denies chest pain. Respiratory: Denies shortness of breath. Physical ExamGeneral Appearance: well nourished, well hydrated, no acute distressRespiratory, Auscultation: clear to auscultation bilaterally; no rales, rhonchi, or wheezesRespiratory, Effort: no intercostal retractions or use of accessory musclesCardiovascular, Auscultation: S1, S2 audible; no murmur, rub, or gallop; RRROrientation: oriented to time, place, and personMood & Affect: no depression, anxiety, or agitationJudgment & Insight: intactCare Management Plan Transitions of CareInboundRate Your HealthIn general, would you say your health is? GoodAssessment & Plan Problems:Assessed:Chronic neck pain (ICD-723.1) (ITM74-R48.2) Assessment: Instructions: Multiple chronic health issues for which he is seeing Ortho and has not seen neurology for a while. This is made more complicated by a lack of follow up on his part.I would like to gather as much imformation as I can from his past specialty care and see him in one month. At that point we will discuss how to proceed in terms of referrals.Patient Instructions/Care Plan: Chronic neck pain: Multiple chronic health issues for which he is seeing Ortho and has not seen neurology for a while. This is made more complicated by a lack of follow up on his part.I would like to gather as much imformation as I can from his past specialty care and see him in one month. At that point we will discuss how to proceed in terms of referrals. Plan developed in collaboration with patient and/or familyMedications:VITAMIN D (ERGOCALCIFEROL) 34251 UNIT ORAL CAPSULEHYDROCODONE- ACETAMINOPHEN 5-325 MG ORAL TABLETEC-NAPROSYN 375 MG ORAL TABLET DELAYED RELEASENICODERM CQ 7 MG/24HR TRANSDERMAL PATCH 24 HOURNICODERM CQ 14 MG/24HR TR ANSDERMAL PATCH 24 HOURNAPROXENTIZANIDINE HCL 4 MG ORAL TABLETGABAPENTIN 300 MG ORAL CAPSULEMedication Changes:Removed:CEFDINIR 300 MG ORAL CAPSULE-1 po bidAllergies:No Known Allergies (updated 02/04/2020) Orders:Adult - Ofc Vst, EST, Level III [CPT-93850] Name Value Range Interpretation Code Description Data Kristine rce(s) Supporting Document(s) ID Date Data Source [id number] 01/13/2020 10:00:39 AM EDT [facility] Labs In-House Blood TestsDate/Time Colle cted: January 13, 2020 10:01 AMTest Result Reference Range Normal ValueComments: blood draw done in offcied one in the right ac tolerated well Cole Reed MA, January 13, 2020 10:01 AMAssessment & Plan Orders:[id number] Vst-Est Level I [CPT-72433] 68404 - Venipuncture [CPT-71228] Name Value Range Interpretation Code Description Data Kristine rce(s) Supporting Document(s) ID Date Data Source [id number] 01/13/2020 09:55:00 AM EDT [facility] Name Value Range Interpretation Code Description Data Kristine rce(s) Supporting Document(s) HCT 51.1 % 42.0-52.0 N [facility] HGB 16.3 g/dL 13.5-17.5 N [facility] MCH 31.9 G/DL pg 32.0-36.[address] [facility] MCHC 29.4 PG % 27.0-33.0 N [facility] PLATELETS 223 10 10*3/mm3 150-450 N [facility] RBC 5.55 10 10*6/mm3 4.30-6.10 N [facility] RDW 13.9 % 11.5-14.5 [facility] WBC TOTAL 11.1 4.0-10.0 H [facility] ID Date Data Source [id number] 01/13/2020 09:55:00 AM EDT [facility] Name Value Range Interpretation Code Description Data Kristine rce(s) Supporting Document(s) VIT D25 TOT 13.1 ng/mL 30.0-100.0 L [facility] BG FASTING 110 mg/dL 70-100 H [facility] T4, FREE 1.07 ng/dL 0.76-1.46 N [facility] TSH 2.170 microintl units/mL 0.358-3.740 N [facility] ID Date Data Source [id number] 01/13/2020 09:55:00 AM EDT [facility] Name Value Range Interpretation Code Description Data Kristine rce(s) Supporting Document(s) HGBA1C 5.5 % N [facility] Procedure Vital Signs ID Date Data Source UNK Name Value Range Interpretation Code Description Data Source(s) Body height 70 [in_i] 70 [in_i] CORAL ([facility]) Body weight 2726.4 [oz_av] 2726.4 [oz_av] ATHEN A ([facility]) Systolic blood pressure 120 mm[Hg] 120 mm[Hg] A THENA ([facility]) Body mass index (BMI) [Ratio] 24.4 kg/m2 24.4 k g/m2 CORAL ([facility]) Body height 70 [in_i] 70 [in_i] CORAL ([facility]) Diastolic blood pressure 79 mm[Hg] 79 mm[Hg] CORAL ([facility]) Body weight 2726.4 [oz_av] 2726.4 [oz_av] ATHEN A ([facility]) Systolic blood pressure 120 mm[Hg] 120 mm[Hg] A LUISAA ([facility]) Body mass index (BMI) [Ratio] 24.4 kg/m2 24.4 k g/m2 CORAL ([facility]) Body height 70 [in_i] 70 [in_i] CORAL ([facility]) Diastolic blood pressure 79 mm[Hg] 79 mm[Hg] CORAL ([facility]) Body weight 2800 [oz_av] 2800 [oz_av] CORAL ([facility]) Body mass index (BMI) [Ratio] 25.1 kg/m2 25.1 k g/m2 CORAL ([facility]) Body height 70 [in_i] 70 [in_i] CORAL ([facility]) Body weight 2800 [oz_av] 2800 [oz_av] CORAL ([facility]) Body mass index (BMI) [Ratio] 25.1 kg/m2 25.1 k g/m2 CORAL ([facility]) Body height 70 [in_i] 70 [in_i] CORAL ([facility]) Body weight 2800 [oz_av] 2800 [oz_av] CORAL ([facility]) Body mass index (BMI) [Ratio] 25.1 kg/m2 25.1 k g/m2 CORAL ([facility]) Body height 70 [in_i] 70 [in_i] CORAL ([facility]) Body mass index (BMI) [Ratio] 24.6 kg/m2 24.6 k g/m2 MEDENT ([facility]) Body weight 174.00 [lb_av] 174.00 [lb_av] MEDEN T ([facility]) Body height 70.5 [in_i] 70.5 [in_i] MEDENT ([facility]) 5'10.50" Body temperature 98.4 [degF] 98.4 [degF] MEDENT ([facility]) Body weight 2729.6 [oz_av] 2729.6 [oz_av] ATHEN A ([facility]) Body mass index (BMI) [Ratio] 24.5 kg/m2 24.5 k g/m2 CORAL ([facility]) Body height 70 [in_i] 70 [in_i] CORAL ([facility]) Body weight 2729.6 [oz_av] 2729.6 [oz_av] ATHEN A ([facility]) Body mass index (BMI) [Ratio] 24.5 kg/m2 24.5 k g/m2 CORAL ([facility]) Body height 70 [in_i] 70 [in_i] CORAL ([facility]) Body weight 2729.6 [oz_av] 2729.6 [oz_av] ATHEN A ([facility]) Body mass index (BMI) [Ratio] 24.5 kg/m2 24.5 k g/m2 CORAL ([facility]) Body height 70 [in_i] 70 [in_i] CORAL ([facility]) Body weight 2729.6 [oz_av] 2729.6 [oz_av] ATHEN A ([facility]) Body mass index (BMI) [Ratio] 24.5 kg/m2 24.5 k g/m2 CORAL ([facility]) Body height 70 [in_i] 70 [in_i] CORAL ([facility]) Body weight 2496 [oz_av] 2496 [oz_av] CORAL ([facility]) Body height 70 [in_i] 70 [in_i] CORAL ([facility]) Body weight 2496 [oz_av] 2496 [oz_av] CORAL ([facility]) Body height 70 [in_i] 70 [in_i] CORAL ([facility]) Body weight 2496 [oz_av] 2496 [oz_av] CORAL ([facility]) Body height 70 [in_i] 70 [in_i] CORAL ([facility]) Body weight 2496 [oz_av] 2496 [oz_av] CORAL ([facility]) Body height 70 [in_i] 70 [in_i] CORAL ([facility]) Body mass index (BMI) [Ratio] 23.0 kg/m2 23.0 k g/m2 MEDENT ([facility]) Body weight 165.00 [lb_av] 165.00 [lb_av] MEDEN T ([facility]) Body height 71 [in_i] 71 [in_i] MEDENT ([facility]) 5'11" Body temperature 97.5 [degF] 97.5 [degF] MEDENT ([facility]) Body weight 2576 [oz_av] 2576 [oz_av] CORAL ([facility]) Systolic blood pressure 127 mm[Hg] 127 mm[Hg] A [facility] ([facility]) Body height 70 [in_i] 70 [in_i] CORAL ([facility]) Diastolic blood pressure 82 mm[Hg] 82 mm[Hg] CORAL ([facility]) Body weight 2576 [oz_av] 2576 [oz_av] CORAL ([facility]) Systolic blood pressure 127 mm[Hg] 127 mm[Hg] [facility] Body height 70 [in_i] 70 [in_i] CORAL ([facility]) Diastolic blood pressure 82 mm[Hg] 82 mm[Hg] CORAL ([facility]) Body weight 2576 [oz_av] 2576 [oz_av] CORAL ([facility]) Systolic blood pressure 127 mm[Hg] 127 mm[Hg] [facility]) Body height 70 [in_i] 70 [in_i] CORAL ([facility]) Diastolic blood pressure 82 mm[Hg] 82 mm[Hg] CORAL ([facility]) Body weight 2576 [oz_av] 2576 [oz_av] CORAL ([facility]) Systolic blood pressure 127 mm[Hg] 127 mm[Hg] A THENA ([facility]) Body height 70 [in_i] 70 [in_i] CORAL ([facility]) Diastolic blood pressure 82 mm[Hg] 82 mm[Hg] CORAL ([facility]) Body mass index (BMI) [Ratio] 24.3 kg/m2 24.3 k g/m2 MEDENT ([facility]) Body weight 174.00 [lb_av] 174.00 [lb_av] MEDEN T ([facility]) Body height 71 [in_i] 71 [in_i] MEDENT ([facility]) 5'11" Body temperature 97.5 [degF] 97.5 [degF] MEDENT ([facility]) Body weight 2739.04 [oz_av] 2739.04 [oz_av] ATH MAXINE ([facility]) Systolic blood pressure 128 mm[Hg] 128 mm[Hg] [facility] Body height 70 [in_i] 70 [in_i] CORAL ([facility]) Diastolic blood pressure 82 mm[Hg] 82 mm[Hg] CORAL ([facility]) Body weight 2739.04 [oz_av] 2739.04 [oz_av] ATH MAXINE ([facility]) Systolic blood pressure 128 mm[Hg] 128 mm[Hg] A THENA ([facility]) Body height 70 [in_i] 70 [in_i] CORAL ([facility]) Diastolic blood pressure 82 mm[Hg] 82 mm[Hg] CORAL ([facility]) Body weight 2739.04 [oz_av] 2739.04 [oz_av] ATH MAXINE ([facility]) Systolic blood pressure 128 mm[Hg] 128 mm[Hg] [facility]) Body height 70 [in_i] 70 [in_i] CORAL ([facility]) Diastolic blood pressure 82 mm[Hg] 82 mm[Hg] CORAL ([facility]) Body weight 2739.04 [oz_av] 2739.04 [oz_av] ATH MAXINE ([facility]) Systolic blood pressure 128 mm[Hg] 128 mm[Hg] A [facility]) Body height 70 [in_i] 70 [in_i] CORAL ([facility]) Diastolic blood pressure 82 mm[Hg] 82 mm[Hg] CORAL ([facility]) Body weight 2792 [oz_av] 2792 [oz_av] CORAL ([facility]) Systolic blood pressure 107 mm[Hg] 107 mm[Hg] A [facility] ([facility]) Body height 70 [in_i] 70 [in_i] CORAL ([facility]) Diastolic blood pressure 77 mm[Hg] 77 mm[Hg] CORAL ([facility]) Body weight 2792 [oz_av] 2792 [oz_av] CORAL ([facility]) Systolic blood pressure 107 mm[Hg] 107 mm[Hg] A [facility]) Body height 70 [in_i] 70 [in_i] CORAL ([facility]) Diastolic blood pressure 77 mm[Hg] 77 mm[Hg] CORAL ([facility]) Body weight 2792 [oz_av] 2792 [oz_av] CORAL ([facility]) Systolic blood pressure 107 mm[Hg] 107 mm[Hg] A [facility]) Body height 70 [in_i] 70 [in_i] CORAL ([facility]) Diastolic blood pressure 77 mm[Hg] 77 mm[Hg] CORAL ([facility]) Body weight 2792 [oz_av] 2792 [oz_av] CORAL ([facility]) Systolic blood pressure 107 mm[Hg] 107 mm[Hg] A [facility] ([facility]) Body height 70 [in_i] 70 [in_i] CORAL ([facility]) Diastolic blood pressure 77 mm[Hg] 77 mm[Hg] CORAL ([facility]) Patient Treatment Plan of Care Planned Activity Planned Date Details Description Data Source (s) Acetaminophen 300 MG / Codeine Phosphate 30 MG Oral Ta b[place] 11/19/2020 12:00:00 AM EST CORAL ([facility]) Acetaminophen 300 MG / Codeine Phosphate 30 MG Oral Ta blet 11/19/2020 12:00:00 AM EST CORAL ([facility]) 24 HR venlafaxine 75 MG Extended Release Oral Capsule CORAL ([facility]) tizanidine 4 MG Oral Tablet CORAL ([facility]) Acetaminophen 325 MG / Oxycodone Hydrochloride 5 MG Oral Tablet CORAL ([facility]) gabapentin 100 MG Oral Capsule CORAL ([facility]) Escitalopram 10 MG Oral Tablet CORAL ([facility]) 12 HR Dextromethorphan Hydrobromide 60 M G / Guaifenesin 1200 MG Extended Release Oral Tablet CORAL ([facility]) cefdinir 300 MG Oral Capsule CORAL ([facility]) 24 HR venlafaxine 75 MG Extended Release Oral Capsule CORAL ([facility]) tizanidine 4 MG Oral Tablet CORAL ([facility]) Acetaminophen 325 MG / Oxycodone Hydrochloride 5 MG Oral Tablet CORAL ([facility]) gabapentin 100 MG Oral Capsule CORAL ([facility]) Escitalopram 10 MG Oral Tablet CORAL ([facility]) gabapentin 100 MG Oral Capsule CORAL ([facility]) Escitalopram 10 MG Oral Tablet CORAL ([facility]) gabapentin 300 MG Oral Capsule CORAL ([facility]) gabapentin 100 MG Oral Capsule CORAL ([facility]) Escitalopram 10 MG Oral Tablet CORAL ([facility])
[2020-12-26] MEDS ORDERED: CYCL-707 (13:41)
[2020-12-26] MEDS ORDERED: oxyCODONE 5MG TAB PO ONE ×2 (14:30→15:45)
--- OUTSIDE RECORDS SUMMARY | 2020-12-26 14:58 | CCD ---
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 Name Role Phone Cathy Gonzalez MD Unavailable [...] Unavailable Unavailable Cathy Gonzalez MD Unavailable Unavailable MCELHERAN, DENA PA Unavailable Unavailable [...] Unavailable MCELHERAN, DENA PA Unavailable Unavailable MCELHERAN, EDNA PA Unavailable Unavailable MCELHERAN, DENA PA Unavailable Unavailable MCELHERAN, DENA PA Unavailable Unavailable MCELHERAN, DENA PA Unavailable Unavailable MCELHERAN, DENA PA Unavailable Unavailable MCELHERAN, DENA PA Unavailable Unavailable MCELHERAN, DENA PA Unavailable Unavailable Huey, A Leatha SOLIDWORKS DESIGNER Unavailable Unavailable Huey, A Leatha SOLIDWORKS DESIGNER Unavailable Unavailable Huey, A Leatha SOLIDWORKS DESIGNER Unavailable Unavailable Huey, A Leatha SOLIDWORKS DESIGNER Unavailable Unavailable [place], A Leatha SOLIDWORKS DESIGNER Unavailable Unavailable [place], A Leatha SOLIDWORKS DESIGNER Unavailable Unavailable [place], A Leatha SOLIDWORKS DESIGNER Unavailable Unavailable [place], A Leatha SOLIDWORKS DESIGNER Unavailable Unavailable [place], A Leatha SOLIDWORKS DESIGNER Unavailable Unavailable [place], A Leatha SOLIDWORKS DESIGNER Unavailable Unavailable [place], A Leatha SOLIDWORKS DESIGNER Unavailable Unavailable [place], A Leatha SOLIDWORKS DESIGNER Unavailable Unavailable [place], A Leatha SOLIDWORKS DESIGNER Unavailable Unavailable [place], A Leatha SOLIDWORKS DESIGNER Unavailable Unavailable [place], A Leatha SOLIDWORKS DESIGNER Unavailable Unavailable [place], A Leatha SOLIDWORKS DESIGNER Unavailable Unavailable [place], A Leatha SOLIDWORKS DESIGNER Unavailable Unavailable [place], A Leatha SOLIDWORKS DESIGNER Unavailable Unavailable [place], A Leatha SOLIDWORKS DESIGNER Unavailable Unavailable [place], A Leatha SOLIDWORKS DESIGNER Unavailable Unavailable [place], A Leatha SOLIDWORKS DESIGNER Unavailable Unavailable [place], A Leatha SOLIDWORKS DESIGNER Unavailable Unavailable [place], A Leatha SOLIDWORKS DESIGNER Unavailable Unavailable [place], A Leatha SOLIDWORKS DESIGNER Unavailable Unavailable [place], A Leatha SOLIDWORKS DESIGNER Unavailable Unavailable [place], A Leatha SOLIDWORKS DESIGNER Unavailable Unavailable Huey, A Leatha SOLIDWORKS DESIGNER Unavailable Unavailable Huey, A Leatha SOLIDWORKS DESIGNER Unavailable Unavailable Cathy Gonzalez MD Unavailable Unavailable [...] Unavailable Unavailable Cathy Gonzalez MD Unavailable Unavailable Cahty Gonzalez MD Unavailable Unavailable Cathy Gonzalez MD [...] Unavailable Unavailable Cathy Gonzalez MD Unavailable Unavailable Ctahy Gonzalez MD Unavailable Unavailable Cathy Gonzalez MD [...] Unavailable Unavailable HeVon daugherty MD Unavailable Unavailable Heitmichael, Von Cage MD Unavailable Unavailable Heitmichael, Von Cage MD Unavailable Unavailable Heitmichael, Von Cage MD Unavailable Unavailable Heitner, Von Cage MD Unavailable Unavailable Heitmichael, Von Cage MD Unavailable Unavailable Hewillow, Von [...] Unavailable Hestephaniener, Von Cage MD Unavailable Unavailable Hestephaniener, Von Cage MD Unavailable Unavailable Hewillow, Von Cage MD Unavailable Unavailable Hewillow, Von Cage MD Unavailable Unavailable Hewillow, Von Cage MD Unavailable Unavailable HeVon daugherty MD Unavailable Unavailable Fish, Toro Bee MD Unavailable Unavailable Fish, Toro Bee MD Unavailable Unavailable Fish, Toro Bee MD Unavailable Unavailable Fish, Toro Bee MD Unavailable Unavailable Fish, Toro Bee MD Unavailable Unavailable Fish, Toro Bee MD Unavailable Unavailable Fish, Toro Bee MD Unavailable Unavailable FishToro MD Unavailable Unavailable FishToro MD Unavailable Unavailable Fish, Toro Bee MD [...] Toro Bee MD Unavailable Unavailable Fish, Toro eBe MD Unavailable Unavailable Fish, Toro Bee MD Unavailable Unavailable Fish, Toro Bee MD Unavailable Unavailable Fish, Toro Bee MD Unavailable Unavailable Fish, Toro Bee MD Unavailable Unavailable Fish, Toro Bee MD Unavailable Unavailable Fish, Toro Bee MD Unavailable Unavailable Fish, Toro Bee MD Unavailable Unavailable Fish, Toro eBe MD Unavailable Unavailable Fish, Toro Bee MD Unavailable Unavailable Fish, Toro Bee MD Unavailable Unavailable Fish, Toro Bee MD Unavailable Unavailable Fish, Toro Bee MD Unavailable Unavailable Fish, Toro Bee MD Unavailable Unavailable Fish, Toro Bee MD Unavailable Unavailable Meghann JENSEN MD Unavailable Unavailable Meghann JENSEN MD Unavailable Unavailable Meghann JENSEN MD Unavailable Unavailable Meghann JENSEN MD Unavailable Unavailable Meghann JENSEN MD Unavailable Unavailable Meghann JENSEN MD Unavailable Unavailable Meghann JENSEN MD Unavailable Unavailable Meghann JENSEN MD Unavailable Unavailable Meghann JENSEN MD Unavailable Unavailable Meghann JENSEN MD Unavailable Unavailable Meghann JENSEN MD Unavailable Unavailable Meghann JENSEN MD Unavailable Unavailable Meghann JENSEN MD Unavailable Unavailable Meghann JENSEN MD Unavailable Unavailable Meghann JENSEN MD Unavailable Unavailable Meghann JENSEN MD Unavailable Unavailable Meghann JENSEN MD Unavailable Unavailable Meghann JENSEN MD Unavailable Unavailable Meghann JENSEN MD Unavailable Unavailable Meghann JENSEN MD Unavailable Unavailable Meghann JENSEN MD Unavailable Unavailable Meghann JENSEN MD Unavailable Unavailable Meghann JENSEN MD Unavailable Unavailable Meghann JENSEN MD Unavailable Unavailable Meghann JENSEN MD Unavailable Unavailable Meghann JENSEN MD Unavailable Unavailable Meghann JENSEN MD Unavailable Unavailable Meghann JENSEN MD Unavailable Unavailable Meghann JENSEN MD Unavailable Unavailable Meghann JENSEN MD Unavailable Unavailable Meghann JENSEN MD Unavailable Unavailable Meghann JENSEN MD Unavailable Unavailable Meghann JENSEN MD Unavailable Unavailable Meghann JENSEN MD Unavailable Unavailable Meghann JENSEN MD Unavailable Unavailable Meghann JENSEN MD Unavailable Unavailable Meghann JENSEN MD Unavailable Unavailable Meghann JENSEN MD Unavailable Unavailable Meghann JENSEN MD Unavailable Unavailable Meghann JENSEN MD Unavailable Unavailable Meghann JENSEN MD Unavailable Unavailable Meghann JENSEN MD Unavailable Unavailable Meghann JENSEN MD Unavailable Unavailable Meghann JENSEN MD Unavailable Unavailable Meghann JENSEN MD Unavailable Unavailable Meghann JENSEN MD Unavailable Unavailable Meghann JENSEN MD Unavailable Unavailable Meghann JENSEN MD Unavailable Unavailable Meghann JENSEN MD Unavailable Unavailable Meghann JENSEN MD Unavailable Unavailable Meghann JENSEN MD Unavailable Unavailable Meghann JENSEN MD Unavailable Unavailable Meghann JENSEN MD Unavailable Unavailable Meghann JENSEN MD Unavailable Unavailable Meghann JENSEN MD Unavailable Unavailable Meghann JENSEN MD Unavailable Unavailable Meghann JENSEN MD Unavailable Unavailable Meghann JENSEN MD Unavailable Unavailable Meghann JENSEN MD Unavailable Unavailable Meghann JENSEN MD Unavailable Unavailable Meghann JENSEN MD Unavailable Unavailable Meghann JENSEN MD Unavailable Unavailable Meghann JENSEN MD Unavailable Unavailable Meghann JENSEN MD Unavailable Unavailable Meghann JENSEN MD Unavailable Unavailable Meghann JENSEN MD Unavailable Unavailable Meghann JENSEN MD Unavailable Unavailable Mgehann JENSEN MD Unavailable Unavailable Meghann JENSEN MD Unavailable Unavailable Meghann JENSEN MD Unavailable Unavailable Meghann JENSEN MD Unavailable Unavailable Meghann JENSEN MD Unavailable Unavailable Meghann JENSEN MD Unavailable Unavailable Meghann JENSEN MD Unavailable Unavailable Meghann JENSEN MD Unavailable Unavailable Meghann JENSEN MD Unavailable Unavailable Meghann JENSEN MD Unavailable Unavailable Meghann JENSEN MD Unavailable Unavailable Meghann JENSEN MD Unavailable Unavailable Meghann JENSEN MD Unavailable Unavailable Meghann JENSEN MD Unavailable Unavailable Meghann JENSEN MD Unavailable Unavailable Meghann JENSEN MD Unavailable Unavailable Guicho Taylor Unavailable [...] is protected by Article 27-F of the [place] State Public Health law. If you continue you may have access to information: Regarding HIV / AIDS; Provided by facilities licensed or operated by the [facility] Office of Mental Health; or Provided by the [facility] Office for People With Developmental Disabilities. If such information is present, then the following [facility] mandated warning applies: This information has been [...] law may result in a fine or penitentiary sentence or both. A general authorization for the release of medical or other information is NOT sufficient authorization for further disc losure. Allergies and Adverse Reactions Type Description Substance Reaction Status Data Source(s ) Allergy to substance Allergy to substance Allergy to substance [place] ([facility]) Allergy to substance Allergy to substance Allergy to substance [place] ([facility]) Allergy to substance Allergy to substance Allergy to substance [place] ([facility]) Family History Family Member Name Family Member Gender Family Member Status Date o f Status Description Data Source(s) Unknown Unknown Problem [facility] Encounters Encounter Providers Location Date Indications Data Source(s ) Patircio Gonzalez MD: [address] [place] [address], Ph. Attender: Patricio Gonzalez MD [facility] Medical 11/25/2020 12:00:00 AM EST [place] ([facility]) MILLER PuenteBC: [address] [place] [address], Ph. Attender: Leatha [facility] Medical 11/19/2020 12:00:00 AM EST [facility] ([facility]) JEFF Puente: [address] [place] [address], Ph. Attender: Leatha Arzate [facility] Medical 11/19/2020 12:00:00 AM EST [place] ([facility]) Shiv Gonzalez MD: [address] [place] [address], Ph. Attender: Shiv Gonzalez MD [facility] Medical 10/21/2020 12:00:00 AM EST [place] ([facility]) Shiv Gonzalez MD: [address] [place] [address], Ph. Attender: Shiv Gonzalez MD [facility] Medical 10/21/2020 12:00:00 AM EST [place] ([facility]) Shiv Gonzalez MD: [address] [place] [address], Ph. Attender: Shiv Gonzalez MD [facility] Medical 10/21/2020 12:00:00 AM EST [place] ([facility]) Outpatient Attender: Rohit Lema MD Physical Therapy 10/05/2020 0 2:30:00 PM EST [facility] ([facility]) OFFICE OUTPATIENT NEW 30 MINUTES Attender: Guicho Taylor Physical Therapy 09/23/2020 12:30:00 PM EST [facility] ([facility]) Outpatient Attender: DENA LALA Physical Therapy 09/13/2020 10:00:00 AM EST [facility] ([facility]) Shiv Gonzalez MD: [address] [place] [address], Ph. Attender: Shiv Gonzalez MD [facility] Medical 09/06/2020 12:00:00 AM EST [place] ([facility]) Shiv Gonzalez MD: [address] [place] [address], Ph. Attender: Shiv Gonzalez MD [facility] Medical 09/06/2020 12:00:00 AM EST [place] ([facility]) Shiv Gonzalez MD: [address] [place] [address], Ph. Attender: Shiv Gonzalez MD [facility] Medical 09/06/2020 12:00:00 AM EST [place] ([facility]) Shiv Gonzalez MD: [address] [place] [address], Ph. Attender: Shiv Gonzalez MD [facility] Medical 09/06/2020 12:00:00 AM EST [place] ([facility]) Outpatient Attender: Patricio Gonzalez MD FP 08/18/2020 04:35:[address] [facility] Outpatient Attender: Patricio Gonzalez MD FP 08/18/2020 02:23:00 PM EDT [facility] Outpatient Attender: Patricio Gonzalez MD FP 08/18/2020 02:18:02 PM EDT [facility] Outpatient Attender: Patricio Gonzalez MD FP 08/18/2020 02:18:01 PM EDT [facility] Outpatient Attender: Patricio Gonzalez MD FP 08/18/2020 01:08:02 PM EDT [facility] Outpatient Attender: Patricio Gonzalez MD FP 08/18/2020 01:08:01 PM EDT [facility] Outpatient Attender: Patricio Gonzalez MD FP 08/18/2020 09:00:01 AM EDT [facility] Outpatient Attender: Patricio Gonzalez MD FP 08/13/2020 01:13:01 PM EDT [facility] Outpatient Attender: Patricio Gonzalez MD FP 08/13/2020 01:02:59 PM EDT [facility] Outpatient Attender: Patricio Gonzalez MD FP 08/10/2020 03:18:01 PM EDT [facility] Outpatient Attender: Patricio Gonzalez MD FP 08/10/2020 03:17:00 PM EDT [facility] Outpatient Attender: Patricio Gonzalez MD FP 08/10/2020 03:09:01 PM EDT [facility] Outpatient Attender: Patricio Gonzalez MD FP 08/10/2020 03:08:00 PM EDT [facility] Outpatient Attender: Patricio Gonzalez MD FP 08/09/2020 01:45:02 PM EDT [facility] Outpatient Attender: Patricio Gonzalez MD FP 08/09/2020 10:58:00 AM EDT [facility] Outpatient Attender: Patricio Gonzalez MD FP 08/09/2020 10:52:00 AM EDT [facility] Outpatient Attender: Patricio Gonzalez MD FP 08/06/2020 02:21:01 PM EDT [facility] Outpatient Attender: Patricio Gonzalez MD FP 07/29/2020 08:02:05 PM EDT [facility] Outpatient Attender: Patricio Gonzalez MD FP 07/29/2020 08:02:01 PM EDT [facility] Outpatient Attender: Patricio Gonzalez MD FP 07/29/2020 05:03:05 PM EDT [facility] Outpatient Attender: Patricio Gonzalez MD FP 07/29/2020 03:03:01 PM EDT [facility] Outpatient Attender: Patricio Gonzalez MD FP 07/28/2020 09:43:00 AM EDT [facility] Outpatient Attender: Patricio Gonzalez MD FP 07/09/2020 08:01:04 AM EDT [facility] Outpatient Attender: Patricio Gonzalez MD FP 07/08/2020 03:47:01 PM EDT [facility] Outpatient Attender: Patricio Gonzalez MD FP 07/08/2020 02:18:01 PM EDT [facility] Outpatient Attender: Patricio Gonzalez MD FP 07/08/2020 02:17:00 PM EDT [facility] Outpatient Attender: Patricio Gonzalez MD FP 07/08/2020 01:40:00 PM EDT [facility] Outpatient Attender: Patricio Gonzalez MD FP 07/08/2020 07:57:00 AM EDT [facility] Outpatient Attender: Patricio Gonzalez MD FP 07/02/2020 03:04:01 PM EDT [facility] Outpatient Attender: Patricio Gonzalez MD FP 06/30/2020 03:24:01 PM EDT [facility] Outpatient Attender: Patricio Gonzalez MD FP 06/25/2020 02:20:00 PM EDT [facility] Outpatient Attender: Patricio Gonzalez MD FP 06/25/2020 02:19:03 PM EDT [facility] Outpatient Attender: Patricio Gonzalez MD FP 06/24/2020 12:03:01 PM EDT [facility] Outpatient Attender: Patricio Gonzalez MD FP 06/23/2020 08:13:[address] [facility] Outpatient Attender: Rohit Lema MD Physical Therapy 06/17/2020 1 0:45:00 AM EDT [facility] ([facility]) Outpatient Attender: Patricio Gonzalez MD FP 06/07/2020 11:13:[address] [facility] Outpatient Attender: Patricio Gonzalez MD FP 06/07/2020 11:12:[address] [facility] Outpatient Attender: DENA LALA Physical Therapy 2020 11:15:00 AM EDT [facility] ([facility]) Outpatient Attender: Patricio Gonzalez MD FP 06/01/2020 08:01:[address] [facility] Outpatient Attender: Patricio Gonzalez MD FP 06/01/2020 08:01:[address] [facility] Outpatient Attender: Patricio Gonzalez MD FP 06/01/2020 02:25:[address] [facility] Outpatient Attender: Patricio Gonzalez MD FP 05/31/2020 11:49:[address] [facility] Outpatient Attender: Patricio Gonzalez MD FP 05/17/2020 12:06:[address] [facility] Office Visit Attender: DENA LALA Physical Therapy 04/23/2020 02:00:00 PM EDT [facility] ([facility]) Office Visit Attender: Niles Cline MD Physical Therapy 01:45:00 PM EDT [facility] ([facility]) Outpatient Attender: Patricio Gonzalez MD FP 04/08/2020 05:50:[address] [facility] Office Visit Attender: DENA LALA Physical Therapy 03/25/2020 09:30:00 AM EDT [facility] ([facility]) Outpatient Attender: Patricio Gonzalez MD FP 03/17/2020 01:48:[address] [facility] Outpatient Attender: Patricio Gonzalez MD FP 03/17/2020 09:26:[address] [facility] Outpatient Attender: Patricio Gonzalez MD FP 03/03/2020 04:12:[address] [facility] Outpatient Attender: Patricio Gonzalez MD FP 03/03/2020 03:08:[address] [facility] Outpatient Attender: Patricio Gonzalez MD FP 02/09/2020 03:58:02 PM EDT [facility] Outpatient Attender: Patricio Gonzalez MD FP 02/04/2020 04:20:00 PM EDT [facility] Outpatient Attender: Patricio Gonzalez MD FP 02/04/2020 03:00:01 PM EDT [facility] Outpatient Attender: Patricio Gonzalez MD FP 01/30/2020 07:54:00 AM EDT [facility] Outpatient Attender: VON JENSEN MD FP 01/30/2020 07:53:01 A M EDT [facility] Outpatient Attender: VON JENSEN MD FP 01/24/2020 09:32:01 P M EDT [facility] Outpatient Attender: VON JENSEN MD FP 01/24/2020 09:30:03 P M EDT [facility] Outpatient Attender: VON JENSEN MD FP 01/24/2020 09:30:01 P M EDT [facility] Outpatient Attender: VON JENSEN MD FP 01/24/2020 09:11:02 P M EDT [facility] Outpatient Attender: VON JENSEN MD FP 01/24/2020 09:11:01 P M EDT [facility] Outpatient Attender: VON JENSEN MD FP 01/19/2020 03:02:00 P M EDT [facility] Outpatient Attender: Niles Cline MD Physical Therapy 01:15:00 PM EDT [facility] ([facility]) Outpatient Attender: VON JENSEN MD FP 01/13/2020 10:31:01 P M EDT [facility] Outpatient Attender: VON JENSEN MD FP 01/13/2020 11:50:01 A M EDT [facility] Outpatient Attender: VON JENSEN MD FP 01/13/2020 11:49:01 A M EDT [facility] Outpatient Attender: VON JENSEN MD FP 01/13/2020 11:48:00 A M EDT [facility] Outpatient Attender: VON JENSEN MD FP 01/13/2020 09:49:00 A M EDT [facility] Outpatient Attender: VON JENSEN MD FP 01/13/2020 09:14:00 A M EDT [facility] Outpatient Attender: VON JENSEN MD 01/09/2020 02:10:01 P [facility] Outpatient Attender: Niles Cline MD Physical Therapy 04/2020 01:00:00 PM EST [facility] ([facility]) Outpatient Attender: VON JENSEN MD 01/08/2020 01:05:00 P [facility] Outpatient Attender: VON JENSEN MD 01/08/2020 12:38:00 P [facility] Outpatient 01/08/2020 11:54:00 AM EST [facility] Outpatient Attender: VON JENSEN MD 12/17/2019 09:01:08 P [facility] Outpatient Attender: VON JENSEN MD 12/09/2019 03:34:01 P [facility] Medications Medication Brand Name Start Date Product [...] codeine phosphate 30 MG Oral Tablet [place] ([facility]) Acetaminophen 300 MG / Codeine Phosphate 30 MG Oral Tablet acetaminophen 300 mg- codeine 30 mg tablet acetaminophen 300 mg-codeine 30 mg tablet 11/19/2020 12:00:00 AM EST completed acetaminophen 300 MG / codeine phosphate 30 MG Oral Tablet [place] ([facility]) 300-30 mg 11/18/2020 12:00:00 AM EST [...] DAILY DOSE = SIX TABLETS SOLD: 11/02/2020 [facility] 150 mg 10/27/2020 12:00:00 AM EST capsule,extended releas e 24hr 60 TAKE TWO CAPSULES BY MOUTH EVERY DAY TAKE TWO CAPSULES BY MOUTH EVERY DAY SOLD: 11/02/2020 [facility] 15 mg 10/06/2020 12:00:00 AM EST tablet 180 TAKE ONE TABLET BY MOUTH EVERY 4 HOURS NEEDED FOR PAIN MAXIMUM DAILY DOSE = 6 TABLETS TAKE ONE TABLET BY MOUTH EVERY 4 HOURS NEEDED FOR PAIN MAXIMUM DAILY DOSE = 6 TABLETS SOLD: 10/06/2020 [facility] Cyclobenzaprine hydrochloride 10 MG Oral Tablet CYCLOBENZAPR INE HCL 10/05/2020 12:00:00 AM EST tablet 90 TAKE ONE TABLET BY MOUTH THREE TIMES A DAY NEEDED FOR SPASMS TAKE ONE TABLET BY MOUTH THREE TIMES A DAY NEEDED F OR SPASMS SOLD: 11/02/2020 [facility] 300 mg 10/05/2020 12:00:00 AM EST capsule 90 TAKE ONE CAPSULE BY MOUTH EVERY MORNING AND 2 AT BEDTIME TAKE ONE CAPSULE BY MOUTH EVERY MORNING AND 2 AT BEDTIME SOLD: 11/02/2020 [facility] 8.6-50 mg 10/05/2020 12:00:00 AM EST tablet 120 TAKE TWO TABLETS BY MOUTH TWICE A DAY TAKE TWO TABLETS BY MOUTH TWICE A DAY SOLD: 10/06/2020 [facility] Cyclobenzaprine hydrochloride 10 MG Oral Tablet CYCLOBENZAPR [...] CAPSULE BY MOUTH EVERY MORNING SOLD: 07/08/2020 [facility] 8.6-50 mg 07/06/2020 12:00:00 AM EDT [...] MAXIMUM DAILY DOSE = 6 SOLD: 06/09/2020 [facility] Escitalopram 10 MG Oral Tablet ESCITALOPRAM [...] Percocet 01/20/2020 12:00:00 AM EDT completed [facility] ([facility]) 15 mg 01/19/2020 12:00:00 AM [...] DAILY DOSE = FIVE TABLETS SOLD: 12/10/2019 [facility] 15 mg 11/11/2019 12:00:00 AM EST [...] completed gabapentin 100 MG Oral Capsule [place] ([facility]) gabapentin 100 MG Oral Capsule gabapenti n 100 mg capsule TAKE 1 3 CAPSULES BY MOUTH THREE TIMES A DAY NEEDED FOR PAIN gabapentin 100 mg capsule TAKE 1 3 CAPSULES BY MOUTH THREE TIMES A DAY NEEDED FOR PAIN completed gabapentin 100 MG Oral Capsule [place] ([facility]) cefdinir 300 MG Oral Capsule cefdinir 300 mg capsule cefdinir 30 0 mg capsule completed cefdinir 300 M G Oral Capsule [place] ([facility]) 24 HR venlafaxine 75 MG Extended Release Oral Capsule venlafaxine ER 75 mg capsule,extended release 24 hr venlafaxine ER 75 mg capsule,extended re lease 24 hr completed 24 HR v enlafaxine 75 MG Extended Release Oral Capsule [place] ([facility]) gabapentin 300 MG Oral Capsule gabapentin 300 mg capsu le gabapentin 300 mg capsule completed gabapentin 300 MG Oral Capsule [place] ([facility]) Escitalopram 10 MG Oral Tablet escitalopram 10 mg tabl et escitalopram 10 mg tablet completed escitalopram 10 MG Oral Tablet [place] ([facility]) Escitalopram 10 MG Oral Tablet escitalopram 10 mg tabl et escitalopram 10 mg tablet completed escitalopram 10 MG Oral Tablet [place] ([facility]) Acetaminophen 325 MG / Oxycodone Hydroch loride [...] oxycodone hydroch loride 5 MG Oral Tablet [place] ([facility]) Escitalopram 10 MG Oral Tablet escitalopram 10 mg tabl et escitalopram 10 mg tablet completed escitalopram 10 MG Oral Tablet [place] ([facility]) Escitalopram 10 MG Oral Tablet escitalopram 10 mg tabl et escitalopram 10 mg tablet completed escitalopram 10 MG Oral Tablet [place] ([facility]) tizanidine 4 MG Oral Tablet tizanidine 4 mg tablet tizanidine 4 mg ta blet completed tizanidine 4 MG Oral Tablet [place] ([facility]) 24 HR venlafaxine 75 MG Extended Release Oral Capsule venlafaxine ER 75 mg capsule,extended release 24 hr venlafaxine ER 75 mg capsule,extended re lease 24 hr completed 24 HR v enlafaxine 75 MG Extended Release Oral Capsule [facility]) 12 HR Dextromethorphan Hydrobromide 60 M G [...] guaifenesin 1200 MG Extended Release Oral Tablet [facility]) Acetaminophen 325 MG / Oxycodone Hydroch [...] oxycodone hydroch loride 5 MG Oral Tablet [place] ([facility]) tizanidine 4 MG Oral Tablet tizanidine 4 mg tablet tizanidine 4 mg ta blet completed tizanidine 4 MG Oral Tablet [place] ([facility]) gabapentin 100 MG Oral Capsule gabapenti n 100 mg capsule TAKE 1 3 CAPSULES BY MOUTH THREE TIMES A DAY NEEDED FOR PAIN gabapentin 100 mg capsule TAKE 1 3 CAPSULES BY MOUTH THREE TIMES A DAY NEEDED FOR PAIN completed gabapentin 100 MG Oral Capsule [place] ([facility]) gabapentin 100 MG Oral Capsule gabapenti n 100 mg capsule TAKE 1 3 CAPSULES BY MOUTH THREE TIMES A DAY NEEDED FOR PAIN gabapentin 100 mg capsule TAKE 1 3 CAPSULES BY MOUTH THREE TIMES A DAY NEEDED FOR PAIN completed gabapentin 100 MG Oral Capsule [place] ([facility]) Insurance Providers Payer name Policy type / Coverage type Policy ID Covered constitution party ID Covered constitution party's relationship to cali Policy Cali Plan Information EMEDNY [id number] SP [id number] [id number] SP [id number] Managed Care - [facility] Community Plan P [id number] S [id number] Medicaid S [id number] S [id number] [facility](MCAID) O [id number] S [id number] Managed Care - [facility] Community Plan P [id number] S [id number] [employer] COMP [id number] SP [id number] MEDICAID [id number] SP [id number] Managed Care - [facility] Community Plan P [id number] S [id number] Medicaid S [id number] S [id number] TRAVELERS WC O [id number] S [id number] [employer] WORK[employer] COMP [id number] SP [id number] [id number] SP [id number] K [id number] SP [id number] [facility] COMM[facility] PLAN MCDO [id number] SP [id number] [facility] MCDO [id number] SP [id number] [facility] MEDICAID [id number] S [id number] [facility]a Health Maintenance Organization (HMO) [id number] Self [id number] [facility] MEDICAID [id number] S [id number] Managed Care - Community Plan [facility] P [id number] S [id number] [facility] COMM[facility]ITY PLAN [facility] [id number] Problems, Conditions, and Diagnoses Code Display Name Description Problem Type Effective Dates Data Source(s) V60.0 Homeless single person Homeless single person 08/10/2020 03:16:[address] [facility] 296.32 DEPRESSIVE DISORDER, MAJOR, RECURRENT EP ISODE, MODERATE DEPRESSIVE DISORDER, MAJOR, RECURRENT EPISODE, MODERATE 06/25/2020 02:1 8:[address] [facility] [id number] Moderate recurrent major depression Mode rate Recurrent Major Depression Problem 06/25/2020 12:00:00 AM EDT [place] ([facility]) 64142983 Moderate recurrent major depression Mode rate Recurrent Major Depression Problem 06/25/2020 12:00:00 AM EDT [place] ([facility]) 19748105 Moderate recurrent major depression Mode rate Recurrent Major Depression Problem 06/25/2020 12:00:00 AM EDT [place] ([facility]) 06086260 Moderate recurrent major depression Mode rate Recurrent Major Depression Problem 06/25/2020 12:00:00 AM EDT [facility]) 268.9 vitamin D deficiency vitamin D deficiency 01/23 09:31:[address] [facility] 42484085 Vitamin D deficiency Vitamin D Deficiency Problem 01/24/2020 12:00:00 AM EDT [place] ([facility]) 70406514 Vitamin D deficiency Vitamin D Deficiency Problem 01/24/2020 12:00:00 AM EDT [place] ([facility]) 08907993 Vitamin D deficiency Vitamin D Deficiency Problem 01/24/2020 12:00:00 AM EDT [place] ([facility]) 15889964 Vitamin D deficiency Vitamin D Deficiency Problem 01/24/2020 12:00:00 AM EDT [place] ([facility]) Surgeries/Procedures Procedure Description Date Indications Data Source(s) XR, chest, 2 view 11/25/2020 12:00:00 AM EST [place] ([facility]) Needle electromyography, each extremity, with related paraspinal areas, when performed, done with nerve conduction, amplitude and latency/velocity study; complete, five or more muscles studied, innervated by three or more nerves or four or more spinal levels (list separately in addition to the code for primary procedure). 09/23/2020 12:00:00 AM EST [facility] ([facility] ) 94465 Nerve conduction studies 13 or more studies NEW 201209/23/2020 12:00:00 AM EST [facility] ([facility] ) THERAPEUTIC PX 1/> AREAS EACH 15 MIN EXERCISES 12:00:00 AM EDT [facility] ([facility] ) Ultrasound, Each 15 Min, Constant Attendance 0 12:00:00 AM EDT [facility] ([facility] ) THERAPEUTIC PX 1/> AREAS EACH 15 MIN EXERCISES 12:00:00 AM EDT [facility] ([facility] ) THERAPEUTIC PX 1/> AREAS EACH 15 MIN EXERCISES 12:00:00 AM EDT [facility] ([facility] ) THERAPEUTIC PX 1/> AREAS EACH 15 MIN EXERCISES 12:00:00 AM EDT [facility] ([facility] ) Ultrasound, Each 15 Min, Constant Attendance 0 12:00:00 AM EDT [facility] ([facility] ) THERAPEUTIC PX 1/> AREAS EACH 15 MIN EXERCISES 12:00:00 AM EDT [facility] ([facility] ) THERAPEUTIC PX 1/> AREAS EACH 15 MIN EXERCISES 12:00:00 AM EDT [facility] ([facility] ) THERAPEUTIC PX 1/> AREAS EACH 15 MIN EXERCISES 12:00:00 AM EDT [facility] ([facility] ) THERAPEUTIC PX 1/> AREAS EACH 15 MIN EXERCISES 12:00:00 AM EDT [facility] ([facility] ) THERAPEUTIC PX 1/> AREAS EACH 15 MIN EXERCISES 12:00:00 AM EDT [facility] ([facility] ) THERAPEUTIC PX 1/> AREAS EACH 15 MIN EXERCISES 12:00:00 AM EDT [facility] ([facility] ) THERAPEUTIC PX 1/> AREAS EACH 15 MIN EXERCISES 12:00:00 AM EDT [facility] ([facility] ) THERAPEUTIC PX 1/> AREAS EACH 15 MIN EXERCISES 12:00:00 AM EDT [facility] ([facility] ) THERAPEUTIC PX 1/> AREAS EACH 15 MIN EXERCISES 12:00:00 AM EDT [facility] ([facility] ) THERAPEUTIC PX 1/> AREAS EACH 15 MIN EXERCISES 12:00:00 AM EDT [facility] ([facility] ) Physical Therapy Eval - Low Complexity 05/05/2020 12:0 0:00 AM EDT [facility] ([facility] ) Physical Therapy Eval - Low Complexity 05/03/2020 12:0 0:00 AM EDT [facility] ([facility] ) RADEX SHOULDER COMPLETE MINIMUM 2 VIEWS 04/23/2020 12: 00:00 AM EDT [facility] ([facility] ) RADEX SHOULDER COMPLETE MINIMUM 2 VIEWS 04/23/2020 12: 00:00 AM EDT [facility] ([facility] ) RADEX WRIST 2 VIEWS 04/19/2020 12:00:00 AM EDT [facility] ([facility] ) RADEX WRIST 2 VIEWS 03/05/2020 12:00:00 AM EDT [facility] ([facility] ) OPTX DSTL RADL I-ARTIC FX/EPIPHYSL SEP 3 FRAG 01/20/20 20 12:00:00 AM EDT [facility] ([facility] ) RADEX WRIST 2 VIEWS 01/19/2020 12:00:00 AM EDT [facility] ([facility] ) CLTX DSTL RADIAL FX/EPIPHYSL SEP W/O MANJ 01/09/2020 1 2:00:00 AM EST [facility] ([facility] ) RADEX WRIST 2 VIEWS 01/09/2020 12:00:00 AM EST [facility] ([facility] ) Results ID Date Data Source [id number] 11/12/2020 02:25:00 PM EST [facility] ([facility] ) Name Value Range Interpretation Code Description Data Kristine rce(s) Supporting Document(s) Covid Rapid Testing Laboratory test result [facility] ([facility] ) ID Date Data Source [id number] 10/06/2020 01:02:00 PM EST [facility] ([facility] ) Name Value Range Interpretation Code Description Data Kristine rce(s) Supporting Document(s) Laboratory test finding (navigational concept) Laboratory test result [facility] ([facility]) ID Date Data Source [id number] 08/18/2020 10:02:[address] [facility] In-House Blood TestsDate/Time Colle cted: August 18, 2020 9:18 AMTest Result Reference Range Normal ValueComments: Blood drawn in office from right AC, tolerated wellNicole Smita HOLLINS, August 18, 2020 10:03 AMAssessment & Plan Orders:[id number] Vst-Est Level I [CPT-51328] 74171 - Venipuncture [CPT-30355] Name Value Range Interpretation Code Description Data Kristine rce(s) Supporting Document(s) ID Date Data Source [id number] 08/18/2020 09:18:[address] [facility] Name Value Range Interpretation Code Description Data Kristine rce(s) Supporting Document(s) BG FASTING 97 mg/dL 70-100 [facility] T4, FREE 0.99 ng/dL 0.76-1.46 [facility] TSH 3.090 microintl units/mL 0.358-3.[address] [facility] VIT D25 TOT 71.9 ng/mL 30.0-100.0 N [facility] ID Date Data Source [id number] 08/18/2020 09:18:[address] [facility] Name Value Range Interpretation Code Description Data Kristine rce(s) Supporting Document(s) HCT 49.6 % 42.0-52.[address] [facility] HGB 15.9 g/dL 13.5-17.[address] [facility] MCH 32.1 G/DL pg 32.0-36.5 N [facility] MCHC 30.3 PG % 27.0-33.[address] [facility] PLATELETS 282 10 10*3/mm3 150-[address] [facility] RBC 5.25 10 10*6/mm3 4.30-6.[address] [facility] RDW 13.3 % 11.5-14.[address] [facility] WBC TOTAL 13.5 4.0-10.[address] [facility] ID Date Data Source [id number] 08/10/2020 03:08:[address] [facility] Housing Safety & Stability Do you [...] you and those living with you: Relatives/Parents/Friends, Moravian(es)Non-[place]ard Benefirts MedicaidTransportation Current Transportation Used: Medicaid TransportationNeeds Assessment Housing Current Housing: Homeless (Outside/Squatting)Sources of income: Family/Friend supportOther: Evicted by landlordWhat services has client accessed in the past or is currently accessing? Patient has accessed high school social studies tutor assistance in pastHousing Interventions Goals: Housing access/referral, ResourcesInterventions: Case managementBasic Needs Current assessment of basic needs: Infrequent access to basis needs, Accessing DHS/Public Aid benefits, Access to transportationBasic Needs I nterventions Goals: Obtain DHS/Public Aid benefits, ResourcesOther: Care Coordination referral Work and Education Current assessment of work: Unemployed - not seeking employmentOther: [facility] Current assessment of health: Regular access to healthcareHealth Interventions Goals: Maintain healthInterventions: Case managementMental Health Current assessment of mental health: Regular access to healthcare specific to mental healthMental Health Interventions Goals: Maintain mental health, Identify a support systemInterventions: Case managementAssessment & Plan Problems:Added: Homeless single person (ICD-V60.0) (RQG60-R13.0) Name Value Range Interpretation Code Description Data Kristine rce(s) Supporting Document(s) ID Date Data Source [id number] 07/29/2020 04:36:[address] [facility] Measurements & CalculationsHeight: 70 inches (5 [...] during this visit, including review of any anbj-wvm-fahlpun medications, herbal therapies, and/or supplements.Allergy ReviewAllergy List [...] up last one [facility] (06/01/2020)Today's Comments: would like a referralReview of [...] Problems:Assessed:DEPRESSIVE DISORDER, MAJOR, RECURRENT EPISODE, MODERATE (ICD-296.32) (TBY16-G51.1) Assessment: Instructions: Recheck as scheduled for counselling and psychiatry here.This seems to be stable and with recent medication change.vitamin D deficiency (ICD-268.9) (KJQ84-O68.9) Assessment: Instructions: Check Vitamin D level soon [...] CAPSULE EXTENDED RELEASE 24 HOURVITAMIN D (ERGOCALCIFEROL) 31944 UNIT ORAL CAPSULEHYDROCODONE-ACETAMINOPHEN 5-325 MG ORAL TABLETEC-NAPROSYN 375 MG ORAL TABLET DELAYED RELEASENICODERM CQ 7 MG/24HR TRANSDERMAL PATCH 24 HOURNICODERM CQ 14 MG/24HR TRANSDERMAL PATCH 24 HOURTIZANIDINE HCL 4 MG ORAL TABLETGABAPENTIN 300 MG ORAL CAPSULEMedication Changes:Refilled:VITAMIN D (ERGOCALCIFEROL) 88087 UNIT ORAL CAPSULE-1 po q wk for 12 wks Qty: 12[Capsule] Refills: 0 Method: ElectronicAllergies:No Known Allergies (updated 07/08/2020) Orders:Adult - Ofc Vst, EST, Level III [CPT- 71623] COMP METABOLIC PANEL [CPT-01357] LIPID PANEL [CPT-31421] TSH [CPT-98087] T-4 free [CPT-63424] Vitamin D 250H Unspecified [CPT-03820] CBC W/DIFF [CPT- 21848] Medications:VITAMIN D (ERGOCALCIFEROL) 24997 UNIT ORAL CAPSULE (ERGOCALCIFEROL) 1 po q wk for 12 wks #12[Capsule] x 0 Route:ORAL Entered and Authorized by: Patricio Gonzalez MD Method used: Electronically to [facility] (retail) [address] [place] [address] Note to Pharmacy: Route: ORAL; Indications: VITAMIN D DEFICIENCY RxID: [id number] signed by Patricio Gonzalez MD on 07/29/2020 at 5:02 PM Name Value Range Interpretation Code Description Data Kristine rce(s) Supporting Document(s) ID Date Data Source [id number] 07/08/2020 01:39:[address] [facility] Patient History Medical History:Degenera tive joint diseaseSurgical History:leg sxFamily History:Cancer - Lung (Father)Liver disease (Mother)Social/Personal History: Smoking Status: current every day smokerDo you vape? NoCurrent Problems: DEPRESSIVE DISORDER, MAJOR, RECURRENT EPISODE, MODERATE (ICD-296.32) (GZS44-D64.1)vitamin D deficiency (ICD-268.9) (OVK24-A86.9)Acute bronchitis, unspecified (BJP87-D28.9)Hyperlipidemia (ICD-272.4) (CNP50-A84.5)Prediabetes (ZYR40-D05.03)Major depressive disorder, single episode, unspecified (ICD10- F32.9)DENTAL CARIES EXTENDING INTO PULP (ICD-521.03) (LWI67-R54.63)Nicotine dependence, cigarettes, uncomplicated (MVR43-C35.210)Prediabetes (ICD10- R73.03)Congenital bilateral pes planus (EQY66-U41.51)Encounter for screening for malignant neoplasm of colon (ICD-V76.51) (OBM01-O80.11)Pain in unspecified joint (CXS60-Z30.50)Encounter for screening for other metabolic disorders (FTV56-C77.228)Chronic neck pain (ICD-723.1) (OXN82-V66.2)Chronic low back pain (ICD-724.2) (FNP39-Q01.5)Problem list reviewed during this update.Current Medications: EFFEXOR XR 75 MG ORAL CAPSULE EXTENDED RELEASE 24 HOUR (VENLAFAXINE HCL) One in AM; Route: ORALVITAMIN D (ERGOCALCIFEROL) 72480 UNIT ORAL CAPSULE (ERGOCALCIFEROL) 1 po q [...] CAPSULE EXTENDED RELEASE 24 HOURVITAMIN D (ERGOCALCIFEROL) 45063 UNIT ORAL CAPSULEHYDROCODONE-ACETAMINOPHEN 5-325 MG ORAL TABLETEC-NAPROSYN 375 MG ORAL TABLET DELAYED RELEASENICODERM CQ 7 MG/24HR TRANSDERMAL PATCH 24 HOURNICODERM CQ 14 MG/24HR TRANSDERMAL PATCH 24 HOURTIZANIDINE HCL 4 MG ORAL TABLETGABAPENTIN 300 MG ORAL CAPSULEAllergies:No Known Allergies (updated 07/08/2020) Orders:Multi-Service Referral [CPT-92555] Clinical Visit Summary Declined Name Value Range Interpretation Code Description Data Kristine rce(s) Supporting Document(s) ID Date Data Source [id number] 06/01/2020 01:01:[address] [facility] Measurements & CalculationsHeight: 70 inches (5 [...] during this visit, including review of any khbl-quq-anvpdne medications, herbal therapies, and/or supplements.Allergy ReviewAllergy List [...] up last one in [facility] Review of Systems General: Complains of fatigue. [...] Plan Problems:Assessed:Major depressive disorder, single episode, unspecified (PQL40-N92.9) Assessment: Instructions: Start Lexapro.Refer for counselling and telepsychiatry.Recheck here 1-2 months.Patient Instructions/Care Plan: Major depressive disorder- single episode- unspecified: Start Lexapro.Refer for counselling and telepsychiatry.Recheck here 1-2 months. Plan developed in collaboration with patient and/or familyMedications:LEXAPRO 10 MG ORAL TABLETVITAMIN D (ERGOCALCIFEROL) 57207 UNIT ORAL CAPSULEHYDROCODONE-ACETAMINOPHEN 5-325 MG ORAL TABLETEC-NAPROSYN [...] Orders:Adult - Ofc Vst, EST, Level III [CPT-89919] Mental Health Consult [CPT-92991] Telepsychiatry Consult [CPT-10417] Medications:LEXAPRO 10 MG ORAL TABLET (ESCITALOPRAM OXALATE) One tablet by mouth every day #30[Tablet] x 2 Route:ORAL Entered and Authorized by: Patricio Gonzalez MD Method used: Electronically to [facility] (retail) [address] [place] [address] Note to Pharmacy: Route: ORAL; RxID: [id number] signed by Patricio Gonzalez MD on 06/01/2020 at 2:24 PM Name Value Range Interpretation Code Description Data Kristine rce(s) Supporting Document(s) ID Date Data Source [id number] 05/26/2020 12:00:00 AM EDT [facility] Dena McElheran PA Patient Name: CHAYA ESCOBAR [id number] [facility] Date of : 1965[address] Date of Exam: 05/26/2020JORDON Vazquez [id number]#: Fax: [phone] EXAM: MRI SHOULDER LEFT W/O&W/CONTRAST ARTHROGRAMCLINICAL INFORMATION: Pain and decreased range of motion.There are no priors for comparison.The glenohumeral injection was performed by HIRA Dodson.The preinjection portion of the examination shows moderate hypertrophicdegenerative change within the acromioclavicular join along with [id number] seen within and on both sides of [...] clinical diagnosis of impingement syndrome.Accredited by the [employer] in [place].FAITH Donovan/Araceli you for referring CHAYA ESCOBAR to our office. Electronically Signed - NINA DOLL DO 05/28/20 14:48 Name Value Range Interpretation Code Description Data Kristine rce(s) Supporting Document(s) ID Date Data Source [id number] 05/26/2020 12:00:00 AM EDT [facility] Dena LALA Patient Name: CHAYA ESCOBAR [id number] [facility] Date of : 1965[place] [address] Date of Exam: 05/26/2020JORDON Vazquez [id number]#: Fax: [phone] EXAM: INJECTION PROCEDURE FOR SHOULDER ARTHROGRAMLEFT SHOULDER ARTHROGRAM:The procedure was performed by Dawit Luna [facility], under the generalsupervision of Dr. Tavarez.The benefits [...] by HIRA Maurice, with Dr. Tavarez.DEVANTE Nguyen/Charito lopez for referring CHAYA ESCOBAR to our office. Electronically Signed - ERIC TAVARZE MD 05/28/20 16:06 Name Value Range Interpretation Code Description Data Kristine rce(s) Supporting Document(s) ID Date Data Source [id number] 05/26/2020 12:00:00 AM EDT [facility] Dena LALA Patient Name: CHAYA ECSOBAR [id number] [facility] Date of : 1965[place] [address] Date of Exam: 05/26/2020[place], [place] [id number]#: Fax: [phone] EXAM: INJECTION PROCEDURE FOR SHOULDER [...] is a 75% reduction in radiation.Dictated by Dawit Luna, HIRA, with Dr. Tavarez.DEVANTE Nguyen/Charito you for referring CHAYA ESCOBAR to our office. Electronically Signed - ERIC TAVAREZ MD 05/28/20 16:06 Name Value Range Interpretation Code Description Data Kristine rce(s) Supporting Document(s) ID Date Data Source [id number] 03/03/2020 03:21:[address] [facility] Measurements & CalculationsHeight: 70 inches (5 [...] & Plan Problems:Assessed:Chronic low back pain (ICD-724.2) (ATC62-K16.5) Assessment: Instructions: Recheck as scheduled with pallitavie [...] familyOrders:Adult - Ofc Vst, EST, Level III [CPT-91970] Name Value Range Interpretation Code Description Data Kristine rce(s) Supporting Document(s) ID Date Data Source [id number] 02/04/2020 03:01:[address] [facility] Measurements & CalculationsHeight: 70 inches (5 [...] or Preferred Language: EnglishFamily and Home Address: [address] [place] [address] What is your housing situation today? I have housing Are you worried about losing your housing? NoMoney and Resources In the past year, have you or any family members you live with been unable to get any of the following when it was really needed? Denies Insecurity: food, utilities, clothing, child day care provider, phone, legal services, otherWithin the past year [...] during this visit, including review of any pxgd-ygb-weogmqj medications, herbal therapies, and/or supplements.Allergy ReviewAllergy List [...] GoodAssessment & Plan Problems:Assessed:Chronic neck pain (ICD-723.1) (OPW36-N04.2) Assessment: Instructions: Multiple chronic health issues for [...] collaboration with patient and/or familyMedications:VITAMIN D (ERGOCALCIFEROL) 41800 UNIT ORAL CAPSULEHYDROCODONE- ACETAMINOPHEN 5-325 MG ORAL TABLETEC-NAPROSYN 375 MG ORAL TABLET DELAYED RELEASENICODERM CQ 7 MG/24HR TRANSDERMAL PATCH 24 HOURNICODERM CQ 14 MG/24HR TR ANSDERMAL PATCH 24 HOURNAPROXENTIZANIDINE HCL 4 MG ORAL TABLETGABAPENTIN 300 MG ORAL CAPSULEMedication Changes:Removed:CEFDINIR 300 MG ORAL CAPSULE-1 po bidAllergies:No Known Allergies (updated 02/04/2020) Orders:Adult - Ofc Vst, EST, Level III [CPT-14413] Name Value Range Interpretation Code Description Data Kristine rce(s) Supporting Document(s) ID Date Data Source [id number] 01/13/2020 10:00:[address] [facility] In-House Blood TestsDate/Time Colle cted: January 13, 2020 10:01 AMTest Result Reference Range Normal ValueComments: blood draw done in offcied one in the right ac tolerated well Cole Reed MA, January 13, 2020 10:01 AMAssessment & Plan Orders:97080-[id number] Vst-Est Level I [CPT-14990] 92722 - Venipuncture [CPT-76965] Name Value Range Interpretation Code Description Data Kristine rce(s) Supporting Document(s) ID Date Data Source [id number] 01/13/2020 09:55:[address] [facility] Name Value Range Interpretation Code Description Data Kristine rce(s) Supporting Document(s) HCT 51.1 % 42.0-52.[address] [facility] HGB 16.3 g/dL 13.5-17.[address] [facility] MCH 31.9 G/DL pg 32.0-36.5 L [facility] MCHC 29.4 PG % 27.0-33.[address] [facility] PLATELETS 223 10 10*3/mm3 150-[address] [facility] RBC 5.55 10 10*6/mm3 4.30-6.[address] [facility] RDW 13.9 % 11.5-14.[address] [facility] WBC TOTAL 11.1 4.0-10.[address] [facility] ID Date Data Source [id number] 01/13/2020 09:55:[address] [facility] Name Value Range Interpretation Code Description Data Kristine rce(s) Supporting Document(s) VIT D25 TOT 13.1 ng/mL 30.0-100.0 [facility] BG FASTING 110 mg/dL 70-100 [facility] T4, FREE 1.07 ng/dL 0.76-1.46 N [facility] TSH 2.170 microintl units/mL 0.358-3.[address] [facility] ID Date Data Source [id number] 01/13/2020 09:55:[address] [facility] Name Value Range Interpretation Code Description Data Kristine rce(s) Supporting Document(s) HGBA1C 5.5 % N [facility] Procedure Vital Signs ID Date Data Source UNK Name Value Range Interpretation Code Description Data Source(s) Body height 70 [in_i] 70 [in_i] CORAL ([facility]) Body weight 2726.4 [oz_av] 2726.4 [oz_av] ATHEN A ([facility]) Systolic blood pressure 120 mm[Hg] 120 mm[Hg] A LUISAA ([facility]) Body mass index (BMI) [Ratio] 24.4 kg/m2 24.4 k g/m2 CORAL ([facility]) Body height 70 [in_i] 70 [in_i] CORAL ([facility]) Diastolic blood pressure 79 mm[Hg] 79 mm[Hg] COR[facility] ([facility]) Body weight 2726.4 [oz_av] 2726.4 [oz_av] ATHEN A ([facility]) Systolic blood pressure 120 mm[Hg] 120 mm[Hg] A LUISAA ([facility]) Body mass index (BMI) [Ratio] 24.4 kg/m2 24.4 k g/m2 [facility] ([facility]) Body height 70 [in_i] 70 [in_i] COR[facility] ([facility]) Diastolic blood pressure 79 mm[Hg] 79 mm[Hg] CORAL ([facility]) Body weight 2800 [oz_av] 2800 [oz_av] CORAL ([facility]) Body mass index (BMI) [Ratio] 25.1 kg/m2 25.1 k g/m2 COR[facility] ([facility]) Body height 70 [in_i] 70 [in_i] CORAL ([facility]) Body weight 2800 [oz_av] 2800 [oz_av] CORAL ([facility]) Body mass index (BMI) [Ratio] 25.1 kg/m2 25.1 k g/m2 CORAL ([facility]) Body height 70 [in_i] 70 [in_i] CORAL ([facility]) Body weight 2800 [oz_av] 2800 [oz_av] CORAL ([facility]) Body mass index (BMI) [Ratio] 25.1 kg/m2 25.1 k g/m2 CORAL ([facility]) Body height 70 [in_i] 70 [in_i] CORAL ([facility]) Body mass index (BMI) [Ratio] 24.6 kg/m2 24.6 k g/m2 MEDENT ([facility]) Body weight 174.00 [lb_av] 174.00 [lb_av] MEDEN T ([facility]) Body height 70.5 [in_i] 70.5 [in_i] MEDENT ([facility]) 5'10.50" Body temperature 98.4 [degF] 98.4 [degF] MEDENT ([facility]) Body weight 2729.6 [oz_av] 2729.6 [oz_av] ATHEN A ([facility]) Body mass index (BMI) [Ratio] 24.5 kg/m2 24.5 k g/m2 CORAL ([facility]) Body height 70 [in_i] 70 [in_i] CORAL ([facility]) Body weight 2729.6 [oz_av] 2729.6 [oz_av] ATHEN A ([facility]) Body mass index (BMI) [Ratio] 24.5 kg/m2 24.5 k g/m2 CORAL ([facility]) Body height 70 [in_i] 70 [in_i] CORAL ([facility]) Body weight 2729.6 [oz_av] 2729.6 [oz_av] ATHEN A ([facility]) Body mass index (BMI) [Ratio] 24.5 kg/m2 24.5 k g/m2 CORAL ([facility]) Body height 70 [in_i] 70 [in_i] CORAL ([facility]) Body weight 2729.6 [oz_av] 2729.6 [oz_av] ATHEN A ([facility]) Body mass index (BMI) [Ratio] 24.5 kg/m2 24.5 k g/m2 CORAL ([facility]) Body height 70 [in_i] 70 [in_i] CORAL ([facility]) Body weight 2496 [oz_av] 2496 [oz_av] CORAL ([facility]) Body height 70 [in_i] 70 [in_i] CORAL ([facility]) Body weight 2496 [oz_av] 2496 [oz_av] CORAL ([facility]) Body height 70 [in_i] 70 [in_i] CORAL ([facility]) Body weight 2496 [oz_av] 2496 [oz_av] CORAL ([facility]) Body height 70 [in_i] 70 [in_i] CORAL ([facility]) Body weight 2496 [oz_av] 2496 [oz_av] CORAL ([facility]) Body height 70 [in_i] 70 [in_i] CORAL ([facility]) Body mass index (BMI) [Ratio] 23.0 kg/m2 23.0 k g/m2 MEDENT ([facility]) Body weight 165.00 [lb_av] 165.00 [lb_av] MEDEN T ([facility]) Body height 71 [in_i] 71 [in_i] MEDENT ([facility]) 5'11" Body temperature 97.5 [degF] 97.5 [degF] MEDENT ([facility]) Body weight 2576 [oz_av] 2576 [oz_av] CORAL ([facility]) Systolic blood pressure 127 mm[Hg] 127 mm[Hg] A [facility] ([facility]) Body height 70 [in_i] 70 [in_i] CORAL ([facility]) Diastolic blood pressure 82 mm[Hg] 82 mm[Hg] CORAL ([facility]) Body weight 2576 [oz_av] 2576 [oz_av] CORAL ([facility]) Systolic blood pressure 127 mm[Hg] 127 mm[Hg] [facility]) Body height 70 [in_i] 70 [in_i] CORAL ([facility]) Diastolic blood pressure 82 mm[Hg] 82 mm[Hg] CORAL ([facility]) Body weight 2576 [oz_av] 2576 [oz_av] CORAL ([facility]) Systolic blood pressure 127 mm[Hg] 127 mm[Hg] A THENA ([facility]) Body height 70 [in_i] 70 [in_i] CORAL ([facility]) Diastolic blood pressure 82 mm[Hg] 82 mm[Hg] CORAL ([facility]) Body weight 2576 [oz_av] 2576 [oz_av] CORAL ([facility]) Systolic blood pressure 127 mm[Hg] 127 mm[Hg] A THENA ([facility]) Body height 70 [in_i] 70 [in_i] CORAL ([facility]) Diastolic blood pressure 82 mm[Hg] 82 mm[Hg] CORAL ([facility]) Body mass index (BMI) [Ratio] 24.3 kg/m2 24.3 k g/m2 MEDENT ([facility]) Body weight 174.00 [lb_av] 174.00 [lb_av] MEDEN T ([facility]) Body height 71 [in_i] 71 [in_i] MEDENT ([facility]) 5'11" Body temperature 97.5 [degF] 97.5 [degF] MEDENT ([facility]) Body weight 2739.04 [oz_av] 2739.04 [oz_av] ATH MAXINE ([facility]) Systolic blood pressure 128 mm[Hg] 128 mm[Hg] A [facility]) Body height 70 [in_i] 70 [in_i] CORAL ([facility]) Diastolic blood pressure 82 mm[Hg] 82 mm[Hg] CORAL ([facility]) Body weight 2739.04 [oz_av] 2739.04 [oz_av] ATH MAXINE ([facility]) Systolic blood pressure 128 mm[Hg] 128 mm[Hg] A THENA ([facility]) Body height 70 [in_i] 70 [in_i] CORAL ([facility]) Diastolic blood pressure 82 mm[Hg] 82 mm[Hg] CORAL ([facility]) Body weight 2739.04 [oz_av] 2739.04 [oz_av] ATH MAXINE ([facility]) Systolic blood pressure 128 mm[Hg] 128 mm[Hg] A THENA ([facility]) Body height 70 [in_i] 70 [in_i] CORAL ([facility]) Diastolic blood pressure 82 mm[Hg] 82 mm[Hg] CORAL ([facility]) Body weight 2739.04 [oz_av] 2739.04 [oz_av] ATH MAXINE ([facility]) Systolic blood pressure 128 mm[Hg] 128 mm[Hg] A THENA ([facility]) Body height 70 [in_i] 70 [in_i] CORAL ([facility]) Diastolic blood pressure 82 mm[Hg] 82 mm[Hg] CORAL ([facility]) Body weight 2792 [oz_av] 2792 [oz_av] CORAL ([facility]) Systolic blood pressure 107 mm[Hg] 107 mm[Hg] A [facility] ([facility]) Body height 70 [in_i] 70 [in_i] CORAL ([facility]) Diastolic blood pressure 77 mm[Hg] 77 mm[Hg] CORAL ([facility]) Body weight 2792 [oz_av] 2792 [oz_av] CORAL ([facility]) Systolic blood pressure 107 mm[Hg] 107 mm[Hg] A [facility]) Body height 70 [in_i] 70 [in_i] CORAL ([facility]) Diastolic blood pressure 77 mm[Hg] 77 mm[Hg] CORAL ([facility]) Body weight 2792 [oz_av] 2792 [oz_av] CORAL ([facility]) Systolic blood pressure 107 mm[Hg] 107 mm[Hg] A [facility]) Body height 70 [in_i] 70 [in_i] CORAL ([facility]) Diastolic blood pressure 77 mm[Hg] 77 mm[Hg] CORAL ([facility]) Body weight 2792 [oz_av] 2792 [oz_av] CORAL ([facility]) Systolic blood pressure 107 mm[Hg] 107 mm[Hg] A [facility]) Body height 70 [in_i] 70 [in_i] CORAL ([facility]) Diastolic blood pressure 77 mm[Hg] 77 mm[Hg] CORAL ([facility]) Patient Treatment Plan of Care Planned Activity Planned Date Details Description Data Source (s) Acetaminophen 300 MG / Codeine Phosphate 30 MG Oral Ta blet 11/19/2020 12:00:00 AM EST CORAL ([facility]) Acetaminophen 300 MG / Codeine Phosphate 30 MG Oral Ta blet 11/19/2020 12:00:00 AM EST CORAL ([facility]) 24 HR venlafaxine 75 MG Extended Release Oral Capsule CORAL ([facility]) tizanidine 4 MG Oral Tablet CORAL ([facility]) Acetaminophen 325 MG / Oxycodone Hydrochloride 5 MG Oral Tablet CORAL ([facility]) gabapentin 100 MG Oral Capsule CORAL ([facility]) Escitalopram 10 MG Oral Tablet CORAL ([facility]) 12 HR Dextromethorphan Hydrobromide 60 M G / Guaifenesin 1200 MG Extended Release Oral Tablet CORAL ([facility]) cefdinir 300 MG Oral Capsule CORAL ([facility]) 24 HR venlafaxine 75 MG Extended Release Oral Capsule CORAL ([facility]) tizanidine 4 MG Oral Tablet CORAL ([facility]) Acetaminophen 325 MG / Oxycodone Hydrochloride 5 MG Oral Tablet CORAL ([facility]) gabapentin 100 MG Oral Capsule CORAL ([facility]) Escitalopram 10 MG Oral Tablet CORAL ([facility]) gabapentin 100 MG Oral Capsule CORAL ([facility]) Escitalopram 10 MG Oral Tablet CORAL ([facility]) gabapentin 300 MG Oral Capsule CORAL ([facility]) gabapentin 100 MG Oral Capsule CORAL ([facility]) Escitalopram 10 MG Oral Tablet CORAL ([facility])
--- NOTE | 2020-12-26 15:13 | REP ---
INDICATION: fall, hit head, neck pain. COMPARISON: None. TECHNIQUE: CT BRAIN PERFORMED IN THE AXIAL PLANE. CORONAL RECONSTRUCTION IMAGES ARE PERFORMED. FINDINGS: THE VENTRICLES ARE NORMAL IN SIZE AND POSITION. THERE IS NO MIDLINE SHIFT OR MASS EFFECT. VELÁZQUEZ-WHITE DIFFERENTIATION IS WELL MAINTAINED. THERE IS NO ACUTE INTRACRANIAL HEMORRHAGE OR EXTRA-AXIAL FLUID COLLECTION. BONE WINDOW EXAMINATION OF THE CALVARIUM AND SKULL BASE IS UNREMARKABLE. VISUALIZED MASTOID AIR CELLS AND PARANASAL SINUSES ARE CLEAR. IMPRESSION: NEGATIVE NONCONTRAST CT BRAIN. <Electronically signed by Luis Vazquez > 12/26/20 [id number]
--- NOTE | 2020-12-26 15:20 | REP ---
INDICATION: fall, hit head, neck pain. COMPARISON: MRI 02/12/2019 TECHNIQUE: TRAUMA PROTOCOL WITH BOTH CORONAL AND SAGITTAL BONE WINDOW RECONSTRUCTIONS. FINDINGS: Slight reversal of lordosis in the upper cervical region which may be related to cervical collar effect there is spondylosis cervical spine greatest at C4-5 with anterior osteophytes disc space narrowing and posterior osteophytes. Vertebral body heights are stable throughout I do not see other levels with significant loss of disc height. Combined factors causing some mild central canal stenosis at C4-5 and some foraminal encroachment at C4-5 bilaterally. Dens and anterior arch of C1 show normal relationship on the sagittal reconstructions and normal appearance in relationship to lateral masses on the coronal reconstruction. No fractures. The posterior elements including the spinous processes, lamina, pedicles, facets and transverse processes grossly intact there is some facet arthropathy without destructive lesion. No prevertebral swelling. Lung apices were clear the uppermost thoracic levels and visualized ribs as well as medial clavicles were also intact. IMPRESSION: 1. Cervical spondylosis greatest at C4-5 with anterior and posterior osteophytes and disc space narrowing minimal. Spondylitic changes at other levels and slight reversal of lordosis in the upper cervical spine that may be related to the collar effect. Mild central canal stenosis and foraminal encroachment at C4-5 due to combined factors, not changed. Foramina at C6-7 show some encroachment as well. All this stable without acute compression fracture, malalignment or other significant finding. <Electronically signed by Luis Vazquez > 12/26/20 [id number]
[2020-12-26] MEDS ORDERED: OXYC-1 PO (15:38)
[2020-12-26 15:50] VITALS: BP 136/97
== END 2020-12-26 16:00 | disposition home or self-care (01) ==
LOC: M ED 13:13
DX: G89.29 Other chronic pain (principal); M54.2 Cervicalgia; M54.5 Low back pain; M19.90 Unspecified osteoarthritis, unspecified site; Z79.899 Other long term (current) drug therapy; F17.210 Nicotine dependence, cigarettes, uncomplicated

== ENCOUNTER 2021-02-17 11:42 | Emergency (ER) | payer MEDICAID, OTHER ==
[~2021-02-17] VITALS: Ht 180.3 cm; Wt 74.0 kg
[~2021-02-17 11:42] MED LIST changes: +CYCL-707; +OXYC-1 PO
[2021-02-17] MEDS ORDERED: SENN1TAB96 (11:56)
[2021-02-17] MEDS ORDERED: FLUTISP (11:56)
[2021-02-17] MEDS ORDERED: VENL150C43 (11:56)
[2021-02-17] MEDS ORDERED: PERCOCET 5MG/325MG TAB PO ONE (13:40)
[2021-02-17 14:03] VITALS: BP 128/74
== END 2021-02-17 14:04 | disposition home or self-care (01) ==
LOC: M ED 11:42
DX: F11.23 Opioid dependence with withdrawal (principal); G89.29 Other chronic pain; M54.5 Low back pain; Z79.899 Other long term (current) drug therapy; F17.210 Nicotine dependence, cigarettes, uncomplicated

== ENCOUNTER → 2021-04-15 | Outpatient (CLI) | payer OTHER ==
[~2021-04-15] MED LIST changes: +FLUTISP; +SENN1TAB96; +VENL150C43
--- NOTE | 2021-04-15 16:37 | REPVR ---
PROCEDURE INFORMATION: Exam: MR Lumbar Spine Without Contrast Exam date and time: 04/15/2021 2:40 PM Age: 55 years old Clinical indication: Low back pain; Additional info: Lbp R/O hnp TECHNIQUE: Imaging protocol: Multiplanar magnetic resonance images of the lumbar spine without intravenous contrast. COMPARISON: MRI-Spine, L.S. without con 02/12/2019 5:17 PM FINDINGS: Vertebrae: There is no fracture. Vertebral bodies maintain their height and alignment. Stir images demonstrate no evidence of bone marrow edema or marrow infiltrating lesion. Spinal cord: The lower thoracic spinal cord, conus and cauda equina are normal. No cord compression. T12-L1: No disc bulge. No central or foraminal stenosis. L1-L2: No disc bulge. Mild facet hypertrophy. No central or foraminal stenosis. L2-L3: Disc dehydration. No disc bulge. Facet hypertrophy. No central or foraminal stenosis. L3-L4: Disc dehydration. Minimal retrolisthesis. Mild disc bulge. There is facet hypertrophy. There is no central stenosis. There is mild right foraminal stenosis. L4-L5: Disc dehydration. Mild disc bulge. Facet hypertrophy. No central or foraminal stenosis. L5-S1: Disc dehydration and mild disc bulge. There is facet hypertrophy with mild right foraminal stenosis. No central stenosis. Soft tissues: There is no paraspinous or intraspinal mass, hemorrhage or fluid collection. IMPRESSION: 1. No acute findings. 2. Degenerative findings detailed above. No significant change from prior scan Electronically signed by: Chester Da Silva On 04/15/2021 16:36:42 PM
== END ==
LOC: M PLARAD 13:20
PROVIDERS: ATTEND Orthopaedic Surgery
DX: M99.73 Connective tissue and disc stenosis of intervertebral foramina of lumbar region (principal); M54.5 Low back pain

== ENCOUNTER → 2021-12-01 | Outpatient (CLI) | payer OTHER ==
[~2021-12-01] MED LIST changes: +TIZA10TA PO; -TIZA4TAB4 PO
== END ==
LOC: M PLALAB 10:46
PROVIDERS: ATTEND Internal Medicine Infectious Disease
DX: B18.2 Chronic viral hepatitis C (principal)

== ENCOUNTER → 2022-04-10 | Outpatient (CLI) | payer OTHER, MEDICAID | LOC: M PAIN 13:30 | PROVIDERS: ATTEND Nurse Practitioner Family | DX: M51.16 Intervertebral disc disorders with radiculopathy, lumbar region (principal); G89.29 Other chronic pain; F17.210 Nicotine dependence, cigarettes, uncomplicated; Z86.59 Personal history of other mental and behavioral disorders; Z79.899 Other long term (current) drug therapy ==

== ENCOUNTER 2022-07-11 17:41 | Emergency (ER) | payer OTHER ==
[~2022-07-11] VITALS: Ht 180.3 cm; Wt 83.0 kg
[2022-07-11 17:43] VITALS: BP 116/75
[2022-07-11] MEDS ORDERED: BUPR1TAB56 (18:35)
[2022-07-11] MEDS ORDERED: IBUP80TA (18:35)
[2022-07-11] MEDS ORDERED: NICO2GUM41 (18:35)
[2022-07-11] MEDS ORDERED: TEST1INJ3 (18:35)
[2022-07-11] MEDS ORDERED: BUPR1FIL37 PO (18:35)
[2022-07-11] MEDS ORDERED: ERGO500029 (18:35)
[2022-07-11] MEDS ORDERED: CEPH500C PO (18:35)
[2022-07-11] MEDS ORDERED: ESCITALOPRAM (18:35)
[2022-07-11] MEDS ORDERED: NICO7DIS30 (18:35)
[2022-07-11] MEDS ORDERED: LIDOCAINE 2% MDV 20ML VIAL SC ONE (21:40)
[2022-07-11] MEDS ORDERED: BACT800T5 PO (21:59)
== END 2022-07-11 22:34 | disposition home or self-care (01) ==
LOC: M ED 17:41
DX: L03.011 Cellulitis of right finger (principal); F32.A Depression, unspecified; Z79.891 Long term (current) use of opiate analgesic; F17.210 Nicotine dependence, cigarettes, uncomplicated

== ENCOUNTER → 2022-07-19 | Outpatient (CLI) | payer OTHER ==
[~2022-07-19] MED LIST changes: +BACT800T5 PO; +BUPR1FIL37 PO; +BUPR1TAB56; +CEPH500C PO; +ERGO500029; +ESCITALOPRAM; +IBUP80TA; +ISOVUE-300 61% 50ML VIAL As Ordered ONE; +LIDOCAINE 1% MDV 20ML VIAL As Ordered ONE; +NICO2GUM41; +NICO7DIS30; +TEST1INJ3; +methylPREDNISolone SUSP 40MG/ML 1ML VIAL (DEPO MEDROL) As Ordered ONE
== END ==
LOC: M RAD 14:52
PROVIDERS: ATTEND Physician Assistant Surgical
DX: M19.012 Primary osteoarthritis, left shoulder (principal)
CPT/HCPCS: 76000; J1030; Q9967

== ENCOUNTER → 2022-10-12 | Outpatient (REF) | payer OTHER, MEDICAID ==
[~2022-10-12] MED LIST changes: -ISOVUE-300 61% 50ML VIAL As Ordered ONE; -LIDOCAINE 1% MDV 20ML VIAL As Ordered ONE; -methylPREDNISolone SUSP 40MG/ML 1ML VIAL (DEPO MEDROL) As Ordered ONE
[2022-10-12 13:02] LABS: BASO # 0.1 10^3/uL (0.0-0.2); BASO % 0.8 % (0.0-1.0); EOS # 0.5 10^3/uL (0.0-0.5); EOS % 7.2 % (0.0-3.0); HEMATOCRIT 45.1 % (42.0-52.0); HEMOGLOBIN 14.4 g/dl (13.5-17.5); LYMPH % 31.1 % (24.0-44.0); MEAN CORPUSCULAR HEMOGLOBIN 29.7 pg (27.0-33.0); MEAN CORPUSCULAR HGB CONC 31.9 g/dl (32.0-36.5); MONO # 0.7 10^3/uL (0.0-0.8); MONO % 10.2 % (2.0-8.0); NEUTROPHILS # 3.3 10^3/uL (1.5-8.5); NEUTROPHILS % 50.4 % (36.0-66.0); PLATELET COUNT, AUTOMATED 192 10^3/uL (150-450); RED BLOOD COUNT 4.85 10^6/uL (4.30-6.10); WHITE BLOOD COUNT 6.6 10^3/uL (4.0-10.0)
[2022-10-12 13:37] LABS: ALBUMIN 3.6 G/DL (3.2-5.2); ALKALINE PHOSPHATASE 54 U/L (46-116); ALT/SGPT 98 U/L (7.0-40); AST/SGOT 50 U/L (<34); BILIRUBIN,TOTAL 0.3 MG/DL (0.3-1.2); BLOOD UREA NITROGEN 22 MG/DL (9-23); CALCIUM LEVEL 8.9 MG/DL (8.5-10.1); CARBON DIOXIDE LEVEL 29 MMOL/L (20-31); CHLORIDE LEVEL 110 MMOL/L (98-107); CREATININE FOR GFR 1.13 MG/DL (0.70-1.30); GLOMERULAR FILTRATION RATE > 60.0 (>56); GLUCOSE, FASTING 98 MG/DL (60-100); POTASSIUM SERUM 4.7 MMOL/L (3.5-5.1); SODIUM LEVEL 139 MMOL/L (136-145); TOTAL PROTEIN 6.4 G/DL (5.7-8.2)
[2022-10-12 13:39] LABS: FREE T4 1.16 NG/DL (0.89-1.76)
[2022-10-14 00:08] LABS: HEPATITIS C QUANTITATION 73200 IU/mL (.)
== END ==
LOC: M LAB REF 12:32
PROVIDERS: ATTEND Family Medicine Addiction Medicine
DX: B18.2 Chronic viral hepatitis C (principal); R53.81 Other malaise

== ENCOUNTER 2023-02-25 05:10 | Emergency (ER) | payer OTHER ==
[~2023-02-25] VITALS: Ht 180.3 cm; Wt 79.0 kg
[~2023-02-25 05:10] MED LIST changes: +FLUT50SP17; -FLUTISP
[2023-02-25] MEDS ORDERED: PENI500T PO (07:19)
[2023-02-25 07:28] VITALS: BP 132/80
== END 2023-02-25 07:39 | disposition home or self-care (01) ==
LOC: M ED 05:10
DX: K08.89 Other specified disorders of teeth and supporting structures (principal); K02.9 Dental caries, unspecified; K57.92 Diverticulitis of intestine, part unspecified, without perforation or abscess without bleeding; F17.200 Nicotine dependence, unspecified, uncomplicated; Z79.899 Other long term (current) drug therapy

== ENCOUNTER 2023-07-11 08:04 | Day surgery (SDC) | payer OTHER ==
[~2023-07-11] VITALS: Ht 180.3 cm; Wt 79.4 kg
[~2023-07-11 08:04] MED LIST changes: +ALBU8.5H INH; +ARIP1TAB6 PO; +BUPR1FIL35 SL; -BUPR1TAB56; +BUPR1TAB56 PO; -IBUP80TA; +IBUP80TA PO; +MEDICAL MARIHUANA PO; -NICO2GUM41; +NICO2GUM41 PO; -NICO7DIS30; +NICO7DIS30 TOP; +NS 1,000 ML IV ONE; +PENI500T PO; +QUET50TA4 PO; -SENN1TAB96; +SENN1TAB96 PO; +TAMS1CAP17 PO; -TEST1INJ3; +TEST1INJ3 IM
[2023-07-11] MEDS ORDERED: propofoL 200 MG/20 ML VIAL As Ordered ONE ×2 (09:28→09:35)
[2023-07-11] MEDS ORDERED: LIDOCAINE 2% 100MG/5ML SDV (FOR ANES.) As Ordered ONE (09:28)
[2023-07-11] MEDS ORDERED: GLYCOPYRROLATE INJ 0.2 MG/ML 2 ML VIAL As Ordered ONE (09:28)
[2023-07-11 10:06] VITALS: TEMP 97.4
[2023-07-11 10:20] VITALS: BP 119/87; O2SAT 98
== END 2023-07-11 14:12 | disposition home or self-care (01) ==
LOC: M OPP 08:04
PROVIDERS: ATTEND Surgery
DX: Z12.11 Encounter for screening for malignant neoplasm of colon (principal); K63.5 Polyp of colon; K57.30 Diverticulosis of large intestine without perforation or abscess without bleeding; D17.5 Benign lipomatous neoplasm of intra-abdominal organs; M19.90 Unspecified osteoarthritis, unspecified site; B19.20 Unspecified viral hepatitis C without hepatic coma; F41.9 Anxiety disorder, unspecified; F32.A Depression, unspecified; F17.210 Nicotine dependence, cigarettes, uncomplicated; Z79.899 Other long term (current) drug therapy

== ENCOUNTER → 2023-12-26 | Outpatient (REF) | payer OTHER, MEDICAID ==
[~2023-12-26] MED LIST changes: -FLUT50SP17; +FLUTISP; -NS 1,000 ML IV ONE
[2023-12-26 12:38] LABS: BASO # 0.1 10^3/uL (0.0-0.2); BASO % 0.9 % (0.0-1.0); EOS # 0.3 10^3/uL (0.0-0.5); EOS % 3.1 % (0.0-3.0); HEMATOCRIT 46.6 % (42.0-52.0); HEMOGLOBIN 14.8 g/dl (13.5-17.5); LYMPH # 1.9 10^3/uL (1.5-5.0); LYMPH % 20.3 % (24.0-44.0); MEAN CORPUSCULAR HEMOGLOBIN 28.7 pg (27.0-33.0); MEAN CORPUSCULAR HGB CONC 31.8 g/dl (32.0-36.5); MEAN CORPUSCULAR VOLUME 90.3 fl (80.0-96.0); MONO # 0.5 10^3/uL (0.0-0.8); MONO % 5.4 % (2.0-8.0); NEUTROPHILS # 6.7 10^3/uL (1.5-8.5); PLATELET COUNT, AUTOMATED 190 10^3/uL (150-450); RED BLOOD COUNT 5.16 10^6/uL (4.30-6.10); WHITE BLOOD COUNT 9.6 10^3/uL (4.0-10.0)
[2023-12-26 13:14] LABS: ALBUMIN 3.7 G/DL (3.2-5.2); ALKALINE PHOSPHATASE 65 U/L (46-116); ALT/SGPT 42 U/L (7.0-40); AST/SGOT 20 U/L (<34); BILIRUBIN,TOTAL 0.2 MG/DL (0.3-1.2); BLOOD UREA NITROGEN 32 MG/DL (9-23); CALCIUM LEVEL 9.1 MG/DL (8.5-10.1); CARBON DIOXIDE LEVEL 29 MMOL/L (20-31); CHLORIDE LEVEL 111 MMOL/L (98-107); CHOLESTEROL LEVEL 140 MG/DL (<200); CHOLESTEROL RISK RATIO 3.88 (<5); CREATININE FOR GFR 1.28 MG/DL (0.70-1.30); GLOMERULAR FILTRATION RATE > 60.0 (>56); GLUCOSE, FASTING 102 MG/DL (60-100); LDL CHOLESTEROL 71.6 MG/DL (<100); POTASSIUM SERUM 5.1 MMOL/L (3.5-5.1); SODIUM LEVEL 142 MMOL/L (136-145); TESTOSTERONE 283 NG/DL (241-827); TOTAL PROTEIN 6.7 G/DL (5.7-8.2); TRIGLYCERIDES LEVEL 162 MG/DL (<150)
[2023-12-27 16:09] LABS: HEPATITIS C QUANTITATION 5100000 IU/mL (.)
== END ==
LOC: M LAB REF 12:09
PROVIDERS: ATTEND Family Medicine Addiction Medicine
DX: B18.2 Chronic viral hepatitis C (principal); R79.89 Other specified abnormal findings of blood chemistry; Z13.228 Encounter for screening for other metabolic disorders

== ENCOUNTER 2024-08-18 14:30 | Inpatient (IN) | payer BC, MEDICAID, OTHER ==
[~2024-08-18] VITALS: Ht 177.8 cm; Wt 72.3 kg
[~2024-08-18 14:30] MED LIST changes: +GABA-1172 PO; -GABA-282 PO
[2024-08-18 18:19] LABS: BASO # 0.1 10^3/uL (0.0-0.2); BASO % 0.8 % (0.0-1.0); EOS # 0.3 10^3/uL (0.0-0.5); EOS % 3.1 % (0.0-3.0); HEMATOCRIT 41.9 % (42.0-52.0); HEMOGLOBIN 14.1 g/dl (13.5-17.5); LYMPH # 2.6 10^3/uL (1.5-5.0); LYMPH % 24.1 % (24.0-44.0); MEAN CORPUSCULAR HEMOGLOBIN 31.1 pg (27.0-33.0); MEAN CORPUSCULAR HGB CONC 33.7 g/dl (32.0-36.5); MEAN CORPUSCULAR VOLUME 92.3 fl (80.0-96.0); MONO # 0.7 10^3/uL (0.0-0.8); MONO % 6.7 % (2.0-8.0); NEUTROPHILS # 7.1 10^3/uL (1.5-8.5); NEUTROPHILS % 64.8 % (36.0-66.0); PLATELET COUNT, AUTOMATED 261 10^3/uL (150-450); RED BLOOD COUNT 4.54 10^6/uL (4.30-6.10); WHITE BLOOD COUNT 10.9 10^3/uL (4.0-10.0)
[2024-08-18 18:41] LABS: ETHYL ALCOHOL (ETHANOL) < 0.003 % (0.000-0.010)
[2024-08-18 18:43] LABS: ALKALINE PHOSPHATASE 75 U/L (46-116); ALT/SGPT 12 U/L (7.0-40); AST/SGOT 12 U/L (<34); BILIRUBIN,DIRECT 0.1 MG/DL (<0.4); BILIRUBIN,TOTAL 0.4 MG/DL (0.3-1.2); BLOOD UREA NITROGEN 14 MG/DL (9-23); CALCIUM LEVEL 10.1 MG/DL (8.5-10.1); CARBON DIOXIDE LEVEL 28 MMOL/L (20-31); CHLORIDE LEVEL 108 MMOL/L (98-107); CREATININE FOR GFR 1.21 MG/DL (0.70-1.30); GLOMERULAR FILTRATION RATE > 60.0 (>56); GLUCOSE, FASTING 91 MG/DL (60-100); POTASSIUM SERUM 4.5 MMOL/L (3.5-5.1); SALICYLATE LEVEL < 3.0 MG/DL (<30); SODIUM LEVEL 139 MMOL/L (136-145); TOTAL PROTEIN 7.3 G/DL (5.7-8.2)
[2024-08-18] MEDS: ASPIRIN 325 MG TAB PO ONE (19:34)
[2024-08-18] MEDS ORDERED: HOME MED LIST COMPLETE! XX SCH (21:50)
[2024-08-18] MEDS: NICOTINE 21MG/24HR 1 EA TRANSDERMAL TD SCH (22:00)
[2024-08-18 22:17] LABS: INR 1.03; PROTHROMBIN TIME 13.2 SECONDS (12.5-14.5)
[2024-08-18] MEDS ORDERED: ALBUTEROL 90 MCG/ACT 8GM HFA INHALER INH PRN (22:45)
[2024-08-18 23:07] LABS: PARTIAL THROMBOPLASTIN TIME 26.6 SECONDS (24.8-34.2)
[2024-08-18 23:13] LABS: CK-MB VALUE MASS < 1.0 NG/ML (<3.6)
[2024-08-18 23:21] VITALS: BP 132/62; TEMP 98.4; O2SAT 95
[2024-08-18 23:32] LABS: CPK CREATINE PHOSPHOKINASE 79 U/L (46-171); MB/CK RELATIVE INDEX 1.26 (< OR =4)
[2024-08-18] MEDS: QUEtiapine FUMARATE 100 MG TAB PO SCH (23:35)
[2024-08-19 03:42] VITALS: BP 119/70; TEMP 97.2; O2SAT 100
[2024-08-19 05:22] LABS: BASO # 0.1 10^3/uL (0.0-0.2); BASO % 0.9 % (0.0-1.0); EOS # 0.5 10^3/uL (0.0-0.5); EOS % 5.6 % (0.0-3.0); HEMATOCRIT 40.2 % (42.0-52.0); HEMOGLOBIN 13.4 g/dl (13.5-17.5); LYMPH # 3.2 10^3/uL (1.5-5.0); LYMPH % 37.1 % (24.0-44.0); MEAN CORPUSCULAR HEMOGLOBIN 30.5 pg (27.0-33.0); MEAN CORPUSCULAR HGB CONC 33.3 g/dl (32.0-36.5); MEAN CORPUSCULAR VOLUME 91.6 fl (80.0-96.0); MONO # 0.6 10^3/uL (0.0-0.8); MONO % 6.8 % (2.0-8.0); NEUTROPHILS # 4.3 10^3/uL (1.5-8.5); NEUTROPHILS % 49.4 % (36.0-66.0); PLATELET COUNT, AUTOMATED 234 10^3/uL (150-450); RED BLOOD COUNT 4.39 10^6/uL (4.30-6.10); WHITE BLOOD COUNT 8.7 10^3/uL (4.0-10.0)
[2024-08-19 05:45] LABS: C REACTIVE PROTEIN QUANTITATIV < 0.40 MG/DL (<1.0)
[2024-08-19 05:46] LABS: INR 1.09; PROTHROMBIN TIME 13.8 SECONDS (12.5-14.5)
[2024-08-19 05:47] LABS: BLOOD UREA NITROGEN 15 MG/DL (9-23); CALCIUM LEVEL 9.4 MG/DL (8.5-10.1); CARBON DIOXIDE LEVEL 24 MMOL/L (20-31); CHLORIDE LEVEL 111 MMOL/L (98-107); CHOLESTEROL LEVEL 162 MG/DL (<200); CHOLESTEROL RISK RATIO 4.64 (<5); CREATININE FOR GFR 1.13 MG/DL (0.70-1.30); GLOMERULAR FILTRATION RATE > 60.0 (>56); GLUCOSE, FASTING 101 MG/DL (60-100); HDL CHOLESTEROL 34.9 MG/DL (>40); LDL CHOLESTEROL 102.7 MG/DL (<100); MAGNESIUM LEVEL 2.2 MG/DL (1.8-2.4); NON-HDL-C 127.1 MG/DL; POTASSIUM SERUM 3.9 MMOL/L (3.5-5.1); SODIUM LEVEL 141 MMOL/L (136-145); TRIGLYCERIDES LEVEL 122 MG/DL (<150)
[2024-08-19 05:48] LABS: RHEUMATOID FACTOR QUANT 3.7 IU/ML (<14)
[2024-08-19 05:49] LABS: ERYTHROCYTE SEDIMENTATION RATE 10 mm/hr (0-20)
[2024-08-19 07:32] VITALS: BP 111/73; TEMP 98.1; O2SAT 97
[2024-08-19] MEDS: ATORVASTATIN 20 MG TAB PO SCH (08:32)
[2024-08-19] MEDS: ASPIRIN 81MG ENTERIC TABLET PO SCH (08:33)
[2024-08-19 12:03] VITALS: BP 119/72; TEMP 98.3; O2SAT 96
[2024-08-19] MEDS ORDERED: ATOR80TA59 PO (12:10)
[2024-08-19] MEDS ORDERED: ASPI81TAEC PO (12:10)
[2024-08-19 12:50] LABS: DRVV SCREEN 38.7 SECONDS
[2024-08-19 13:10] LABS: PTT LUPUS TYPE ANTICOAG SCREEN 0.98 (0-1.20)
[2024-08-20 23:47] LABS: CARDIOLIPIN IGA ANTIBODY < 2.0 APL-U/mL (<20.0); CARDIOLIPIN IGG ANTIBODY < 2.0 GPL-U/mL (<20.0); CARDIOLIPIN IGM ANTIBODY 4.4 MPL-U/mL (<20.0)
== END 2024-08-19 15:10 | disposition home or self-care (01) | DRG 45 ==
LOC: M ED 14:30 → M ED INP 21:42 → M PCU 23:16
PROVIDERS: ADMIT Student in an Organized Health Care Education/Training Program; ATTEND Student in an Organized Health Care Education/Training Program
PROC: B246ZZZ Ultrasonography of Right and Left Heart (ICD-10-PCS; principal; 2024-08-19)
DX: I63.532 Cerebral infarction due to unspecified occlusion or stenosis of left posterior cerebral artery (principal); R73.03 Prediabetes; E78.5 Hyperlipidemia, unspecified; K73.9 Chronic hepatitis, unspecified; H53.9 Unspecified visual disturbance; M19.90 Unspecified osteoarthritis, unspecified site; F39 Unspecified mood [affective] disorder; N40.1 Benign prostatic hyperplasia with lower urinary tract symptoms; F17.210 Nicotine dependence, cigarettes, uncomplicated; J45.909 Unspecified asthma, uncomplicated; Z87.81 Personal history of (healed) traumatic fracture; Z71.6 Tobacco abuse counseling; Z79.51 Long term (current) use of inhaled steroids; Z79.899 Other long term (current) drug therapy; Z91.013 Allergy to seafood

== ENCOUNTER 2024-08-29 12:18 | Inpatient (IN) | payer BC ==
[~2024-08-29] VITALS: Ht 180.3 cm; Wt 68.6 kg
[~2024-08-29 12:18] MED LIST changes: +ASPI81TAEC PO; +ATOR80TA59 PO
[2024-08-29 12:55] LABS: BASO # 0.1 10^3/uL (0.0-0.2); BASO % 0.3 % (0.0-1.0); EOS % 0.1 % (0.0-3.0); HEMATOCRIT 39.4 % (42.0-52.0); HEMOGLOBIN 13.5 g/dl (13.5-17.5); LYMPH # 1.1 10^3/uL (1.5-5.0); LYMPH % 6.1 % (24.0-44.0); MEAN CORPUSCULAR HEMOGLOBIN 30.8 pg (27.0-33.0); MEAN CORPUSCULAR HGB CONC 34.3 g/dl (32.0-36.5); MONO # 0.7 10^3/uL (0.0-0.8); NEUTROPHILS # 15.2 10^3/uL (1.5-8.5); NEUTROPHILS % 88.7 % (36.0-66.0); PLATELET COUNT, AUTOMATED 270 10^3/uL (150-450); RED BLOOD COUNT 4.38 10^6/uL (4.30-6.10); WHITE BLOOD COUNT 17.1 10^3/uL (4.0-10.0)
[2024-08-29 13:19] LABS: ALBUMIN 3.6 G/DL (3.2-5.2); BILIRUBIN,DIRECT 0.3 MG/DL (<0.4); BILIRUBIN,TOTAL 0.7 MG/DL (0.3-1.2); CALCIUM LEVEL 9.4 MG/DL (8.5-10.1); GLOMERULAR FILTRATION RATE 36.6 (>56); POTASSIUM SERUM 4.5 MMOL/L (3.5-5.1); TOTAL PROTEIN 6.4 G/DL (5.7-8.2)
[2024-08-29 13:21] LABS: THYROID STIMULATING HORMONE 1.138 uIU/ML (0.55-4.78)
[2024-08-29] MEDS: NS 500 ML IV ONE (13:51)
[2024-08-29] MEDS ORDERED: ATOR80TA59 PO (13:59)
[2024-08-29] MEDS ORDERED: IBUP1TAB7 PO (13:59)
[2024-08-29] MEDS ORDERED: HOME MED LIST COMPLETE! XX SCH (14:00)
[2024-08-29] MEDS: NS 1,000 ML IV SCH ×2 (15:06→18:22)
[2024-08-29 16:39] LABS: AMPHETAMINES LEVEL URINE POSITIVE (NEGATIVE); BARBITURATES URINE NEGATIVE (NEGATIVE); BENZODIAZEPINES URINE NEGATIVE (NEGATIVE); CANNABINOIDS URINE POSITIVE (NEGATIVE); COCAINE METABOLITE URINE NEGATIVE (NEGATIVE); METHADONE URINE NEGATIVE (NEGATIVE); OPIATES URINE NEGATIVE (NEGATIVE); PHENCYCLIDINE URINE NEGATIVE (NEGATIVE)
[2024-08-29] MEDS ORDERED: ALBUTEROL 90 MCG/ACT 8GM HFA INHALER INH PRN (17:15)
[2024-08-29] MEDS: NS 1,000 ML IV ONE (17:46)
[2024-08-29 18:31] VITALS: BP 118/72; TEMP 97.6; O2SAT 96
[2024-08-29 18:41] LABS: CALCIUM LEVEL 8.7 MG/DL (8.5-10.1); CREATININE FOR GFR 1.65 MG/DL (0.70-1.30); GLOMERULAR FILTRATION RATE 45.7 (>56); POTASSIUM SERUM 4.5 MMOL/L (3.5-5.1)
[2024-08-29 18:43] LABS: FOLATE 11.87 NG/ML (>5.4)
[2024-08-29 18:48] LABS: PROCALCITONIN 0.48 ng/ml
[2024-08-29] MEDS: NICOTINE POLACRILEX 2 MG GUM PO PRN (19:09)
[2024-08-29] MEDS: NICOTINE 21MG/24HR 1 EA TRANSDERMAL TD SCH (20:01)
[2024-08-29 20:26] VITALS: BP 106/62; TEMP 97.2; O2SAT 96
[2024-08-29] MEDS: diphenhydrAMINE 50MG/ML VIAL IV ONE (23:59)
[2024-08-30 04:00] VITALS: BP 108/69; TEMP 98.1; O2SAT 98
[2024-08-30 07:46] LABS: BASO % 0.3 % (0.0-1.0); EOS # 0.1 10^3/uL (0.0-0.5); EOS % 0.7 % (0.0-3.0); HEMATOCRIT 37.2 % (42.0-52.0); HEMOGLOBIN 12.4 g/dl (13.5-17.5); LYMPH # 1.8 10^3/uL (1.5-5.0); LYMPH % 16.9 % (24.0-44.0); MEAN CORPUSCULAR HEMOGLOBIN 30.8 pg (27.0-33.0); MEAN CORPUSCULAR HGB CONC 33.3 g/dl (32.0-36.5); MEAN CORPUSCULAR VOLUME 92.3 fl (80.0-96.0); MONO # 0.4 10^3/uL (0.0-0.8); MONO % 3.7 % (2.0-8.0); NEUTROPHILS # 8.4 10^3/uL (1.5-8.5); PLATELET COUNT, AUTOMATED 215 10^3/uL (150-450); RED BLOOD COUNT 4.03 10^6/uL (4.30-6.10); WHITE BLOOD COUNT 10.8 10^3/uL (4.0-10.0)
[2024-08-30 08:13] LABS: ALBUMIN 2.8 G/DL (3.2-5.2); ALKALINE PHOSPHATASE 52 U/L (40-129); ALT/SGPT 10 U/L (7.0-40); AST/SGOT 19 U/L (<34); BILIRUBIN,TOTAL 0.4 MG/DL (0.3-1.2); BLOOD UREA NITROGEN 24 MG/DL (9-23); CALCIUM LEVEL 8.8 MG/DL (8.5-10.1); CARBON DIOXIDE LEVEL 22 MMOL/L (20-31); CHLORIDE LEVEL 114 MMOL/L (98-107); CHOLESTEROL LEVEL 119 MG/DL (<200); CHOLESTEROL RISK RATIO 3.82 (<5); CREATININE FOR GFR 1.28 MG/DL (0.70-1.30); GLOMERULAR FILTRATION RATE > 60.0 (>56); GLUCOSE, FASTING 106 MG/DL (60-100); HDL CHOLESTEROL 31.1 MG/DL (>40); LDL CHOLESTEROL 70.5 MG/DL (<100); NON-HDL-C 87.9 MG/DL; POTASSIUM SERUM 4.2 MMOL/L (3.5-5.1); SODIUM LEVEL 140 MMOL/L (136-145); TOTAL PROTEIN 5.2 G/DL (5.7-8.2); TRIGLYCERIDES LEVEL 87 MG/DL (<150)
[2024-08-30] MEDS: ASPIRIN 81MG CHEW TABLET PO SCH (08:41)
[2024-08-30] MEDS: ATORVASTATIN 20 MG TAB PO SCH (08:41)
[2024-08-30] MEDS: CETIRIZINE (ZyrTEC) 10 MG TAB PO SCH (08:41)
[2024-08-30 08:46] LABS: HEMOGLOBIN A1c 5.1 % (4.0-6.0)
[2024-08-30] MEDS ORDERED: ASPI81CH8 PO (11:48)
[2024-08-30 12:00] VITALS: BP 96/66; TEMP 98.1; O2SAT 98
== END 2024-08-30 13:50 | disposition home or self-care (01) | DRG 812 ==
LOC: EDBD 12:18 → M ED 12:18 → M ED INP 17:09 → M MS5PR 18:15
PROVIDERS: ADMIT General Practice; ATTEND General Practice
DX: T43.651A Poisoning by methamphetamines accidental (unintentional), initial encounter (principal); G92.8 Other toxic encephalopathy; N17.9 Acute kidney failure, unspecified; R73.03 Prediabetes; I24.89 Other forms of acute ischemic heart disease; E78.5 Hyperlipidemia, unspecified; F15.188 Other stimulant abuse with other stimulant-induced disorder; F12.188 Cannabis abuse with other cannabis-induced disorder; E86.0 Dehydration; J45.909 Unspecified asthma, uncomplicated; N40.0 Benign prostatic hyperplasia without lower urinary tract symptoms; B18.2 Chronic viral hepatitis C; R21 Rash and other nonspecific skin eruption; Z59.00 Homelessness unspecified; F17.200 Nicotine dependence, unspecified, uncomplicated; I69.398 Other sequelae of cerebral infarction; Z79.899 Other long term (current) drug therapy; Z91.013 Allergy to seafood

== ENCOUNTER 2024-12-25 12:55 | Emergency (ER) | payer BC, MEDICAID, OTHER ==
[~2024-12-25] VITALS: Ht 180.3 cm; Wt 73.1 kg
[~2024-12-25 12:55] MED LIST changes: +ASPI81CH8 PO; +IBUP1TAB7 PO
[2024-12-25] MEDS ORDERED: BUPR1FIL35 (13:16)
[2024-12-25 17:32] VITALS: BP 116/76; TEMP 97.5; O2SAT 100
[2024-12-25] MEDS: ACETAMINOPHEN 325 MG TAB PO ONE (18:44)
== END 2024-12-25 18:52 | disposition home or self-care (01) ==
LOC: M ED 12:55 → EDBD 12:55 → M ED 18:52
DX: S63.391A Traumatic rupture of other ligament of right wrist, initial encounter (principal); W00.0XXA Fall on same level due to ice and snow, initial encounter; Y92.410 Unspecified street and highway as the place of occurrence of the external cause; Y93.9 Activity, unspecified; Y99.9 Unspecified external cause status; K57.92 Diverticulitis of intestine, part unspecified, without perforation or abscess without bleeding; Z86.19 Personal history of other infectious and parasitic diseases; N40.0 Benign prostatic hyperplasia without lower urinary tract symptoms; J44.9 Chronic obstructive pulmonary disease, unspecified; F17.200 Nicotine dependence, unspecified, uncomplicated; F19.11 Other psychoactive substance abuse, in remission; Z79.899 Other long term (current) drug therapy; Z91.013 Allergy to seafood

== ENCOUNTER 2025-08-02 11:24 | Inpatient (IN) | payer MEDICARE, OTHER, BC ==
[~2025-08-02] VITALS: Ht 180.3 cm; Wt 66.8 kg
[~2025-08-02 11:24] MED LIST changes: -BUPR1TAB56 PO; +BUPR200T45 PO; -IBUP-1022 PO; +IBUP600T42 PO
[2025-08-02 11:52] LABS: VENOUS BASE EXCESS -4.3 (-2.0-2.0); VENOUS HCO3 20.8 MMOL/L (23.0-27.0); VENOUS O2 SATURATION 78.8 % (60.0-80.0); VENOUS PARTIAL PRESSURE CO2 38.2 mmHg (38.0-50.0); VENOUS PARTIAL PRESSURE O2 44.7 mmHg (30.0-50.0); VENOUS PH 7.353 UNITS (7.330-7.430); VENOUS STANDARD HCO3 20.5 MMOL/L; VENOUS TOTAL CO2 21.9 MMOL/L (24.0-28.0)
[2025-08-02] MEDS ORDERED: ISOVUE-370 76% 100 ML VIAL As Ordered ONE (11:58)
[2025-08-02 12:00] LABS: BASO # 0.0 10^3/uL (0.0-0.2); BASO % 0.2 % (0.0-1.0); EOS # 0.0 10^3/uL (0.0-0.5); EOS % 0.0 % (0.0-3.0); LYMPH # 1.3 10^3/uL (1.5-5.0); LYMPH % 5.6 % (24.0-44.0); MONO # 1.6 10^3/uL (0.0-0.8); MONO % 6.8 % (2.0-8.0); NEUTROPHILS # 20.2 10^3/uL (1.5-8.5); NEUTROPHILS % 86.8 % (36.0-66.0); PLATELET COUNT, AUTOMATED 278 10^3/uL (150-450)
[2025-08-02] MEDS: NS (Normal Saline) 0.9% 1,000 ML IV ONE ×2 (12:18→18:13)
[2025-08-02 12:30] LABS: CK-MB VALUE MASS 21.0 NG/ML (<3.6)
[2025-08-02 12:44] LABS: CPK CREATINE PHOSPHOKINASE 1367.0 U/L (46-171); MB/CK RELATIVE INDEX 1.53 (< OR =4)
[2025-08-02 13:02] LABS: KETONE, URINE AUTO RFX TRACE mg/dL (NEGATIVE); LEUKOCYTE ESTERASE UR AUTO RFX NEGATIVE (NEGATIVE); MUCUS, URINE RFX SMALL (NEGATIVE); NITRITE, URINE AUTO RFX NEGATIVE (NEGATIVE); RBC, URINE AUTO RFX 51 /HPF (0-3); SQUAM EPITHELIAL CELL UR AURFX 0 /HPF (0-6)
[2025-08-02 13:03] LABS: WBC, URINE AUTO RFX 19 /HPF (0-3)
[2025-08-02 13:20] LABS: AMPHETAMINES LEVEL URINE NEGATIVE (NEGATIVE); BARBITURATES URINE NEGATIVE (NEGATIVE); BENZODIAZEPINES URINE NEGATIVE (NEGATIVE); CANNABINOIDS URINE NEGATIVE (NEGATIVE); COCAINE METABOLITE URINE NEGATIVE (NEGATIVE); METHADONE URINE NEGATIVE (NEGATIVE); OPIATES URINE NEGATIVE (NEGATIVE); PHENCYCLIDINE URINE NEGATIVE (NEGATIVE)
[2025-08-02] MEDS: cefTRIAXone SOD 2 GM in DEXTROSE 5% (D5W) ADV/MINI-BAG 50 ML IV ONE (13:52)
[2025-08-02 15:00] LABS: CK-MB VALUE MASS 22.2 NG/ML (<3.6)
[2025-08-02 15:01] LABS: ETHYL ALCOHOL (ETHANOL) < 0.003 % (0.000-0.010)
[2025-08-02 15:03] LABS: ALT/SGPT 27 U/L (7.0-40); AST/SGOT 73 U/L (<34); CALCIUM LEVEL 8.7 MG/DL (8.3-10.6); CARBON DIOXIDE LEVEL 19 MMOL/L (20-31); CHLORIDE LEVEL 116 MMOL/L (98-107); CREATININE FOR GFR 1.34 MG/DL (0.70-1.30); GLOMERULAR FILTRATION RATE 60.7 (>49); MAGNESIUM LEVEL 2.7 MG/DL (1.8-2.4); POTASSIUM SERUM 4.4 MMOL/L (3.5-5.1); SALICYLATE LEVEL < 3.0 MG/DL (<30); SODIUM LEVEL 146 MMOL/L (136-145)
[2025-08-02 15:53] LABS: CPK CREATINE PHOSPHOKINASE 1663 U/L (46-171); MB/CK RELATIVE INDEX 1.33 (< OR =4)
[2025-08-02] MEDS ORDERED: QUET100T2 PO (17:42)
[2025-08-02] MEDS ORDERED: HOME MED LIST COMPLETE! XX SCH (17:45)
[2025-08-02] MEDS: ASPIRIN 300 MG SUPP PR STA (18:13)
[2025-08-02] MEDS: TETANUS/DIPHTH/ACEL. PERTUSSIS 0.5 ML SYR IM ONE (18:16)
[2025-08-02] MEDS ORDERED: GLUCAGON INJ 1 MG VIAL SC PRN (18:20)
[2025-08-02] MEDS ORDERED: GLUCOSE 4 GM CHEW PO PRN (18:20)
[2025-08-02] MEDS ORDERED: DEXTROSE 50% 50 ML SYRINGE IV PRN (18:20)
[2025-08-02 18:49] LABS: CHOLESTEROL LEVEL 176 MG/DL (<200); CHOLESTEROL RISK RATIO 3.69 (<5); LDL CHOLESTEROL 99.8 MG/DL (<100); NON-HDL-C 128.4 MG/DL; TRIGLYCERIDES LEVEL 143 MG/DL (<150)
[2025-08-02] MEDS: SODIUM BICARBONATE 100 MEQ in D5W 1,000 ML IV SCH (19:00)
[2025-08-02 19:25] LABS: ESTIMATED AVERAGE GLUCOSE 120.0 MG/DL (60-110)
[2025-08-02 21:40] VITALS: BP 132/88; TEMP 97.3; O2SAT 100
[2025-08-02 22:00] VITALS: O2SAT 94
[2025-08-02 23:32] VITALS: BP 128/74; TEMP 98.3; O2SAT 95
[2025-08-03 04:00] VITALS: O2SAT 94
[2025-08-03 04:13] VITALS: BP 124/74; TEMP 98.2; O2SAT 96
[2025-08-03 05:37] LABS: PLATELET COUNT, AUTOMATED 215 10^3/uL (150-450)
[2025-08-03 05:46] LABS: ALT/SGPT 29.0 U/L (7.0-40); AST/SGOT 77.0 U/L (<34); CALCIUM LEVEL 8.5 MG/DL (8.3-10.6); CARBON DIOXIDE LEVEL 25.0 MMOL/L (20-31); CHLORIDE LEVEL 118.0 MMOL/L (98-107); CPK CREATINE PHOSPHOKINASE 1720.0 U/L (46-171); CREATININE FOR GFR 1.05 MG/DL (0.70-1.30); GLOMERULAR FILTRATION RATE 81.3 (>49); POTASSIUM SERUM 3.9 MMOL/L (3.5-5.1); SODIUM LEVEL 147.0 MMOL/L (136-145)
[2025-08-03] MEDS: D5W 1,000 ML IV SCH (07:25)
[2025-08-03] MEDS: NS (Normal Saline) 0.9% 1,000 ML IV ONE (07:48)
[2025-08-03 08:05] VITALS: BP 138/65; TEMP 98; O2SAT 98
[2025-08-03] MEDS: ASPIRIN 81 MG ENTERIC TABLET PO SCH (09:37)
[2025-08-03] MEDS: ATORVASTATIN 20 MG TAB PO SCH (09:37)
[2025-08-03] MEDS ORDERED: E-Z-PAQUE 96% w/w SUSP 176 GM BTL As Ordered ONE (11:28)
[2025-08-03] MEDS ORDERED: BARIUM SULFATE 700 MG TABLET As Ordered ONE (11:28)
[2025-08-03] MEDS ORDERED: VARIBAR NECTAR 40% w/v 240ML SUSP BTL As Ordered ONE (11:29)
[2025-08-03] MEDS ORDERED: VARIBAR PUDDING 40% w/v 230ML TUBE As Ordered ONE (11:29)
[2025-08-03] MEDS: CLOPIDOGREL 75 MG TAB PO SCH (11:50)
[2025-08-03] MEDS: ACETAMINOPHEN 325 MG TAB PO PRN (13:18)
[2025-08-03 13:57] VITALS: BP 118/72; O2SAT 97
[2025-08-03 16:26] VITALS: BP 109/61; TEMP 98.1; O2SAT 98
[2025-08-03 19:38] VITALS: BP 118/57; TEMP 98.3; O2SAT 96
[2025-08-03] MEDS: ENOXAPARIN 40 MG/0.4 ML SYRINGE (J1650 PER 10MG) SC SCH (20:38)
[2025-08-04 00:04] VITALS: BP 119/66; TEMP 98.6; O2SAT 96
[2025-08-04 03:59] VITALS: BP 118/82; TEMP 98.5; O2SAT 96
[2025-08-04 06:04] LABS: PLATELET COUNT, AUTOMATED 172 10^3/uL (150-450)
[2025-08-04 06:47] LABS: CALCIUM LEVEL 8.2 MG/DL (8.3-10.6); CARBON DIOXIDE LEVEL 27 MMOL/L (20-31); CHLORIDE LEVEL 110 MMOL/L (98-107); CREATININE FOR GFR 0.95 MG/DL (0.70-1.30); GLOMERULAR FILTRATION RATE > 90.0 (>49); MAGNESIUM LEVEL 2.0 MG/DL (1.8-2.4); POTASSIUM SERUM 3.6 MMOL/L (3.5-5.1); SODIUM LEVEL 142 MMOL/L (136-145)
[2025-08-04 07:44] LABS: FREE T4 1.20 NG/DL (0.89-1.76)
[2025-08-04 07:58] VITALS: BP 128/63; TEMP 99.7; O2SAT 95
[2025-08-04] MEDS ORDERED: CLOPIDOGREL 75 MG TAB PO SCH (09:00)
[2025-08-04 09:07] LABS: CPK CREATINE PHOSPHOKINASE 811 U/L (46-171)
[2025-08-04 11:50] VITALS: BP 127/74; TEMP 99.4; O2SAT 98
[2025-08-04 15:19] VITALS: BP 121/72; TEMP 99.5; O2SAT 98
[2025-08-04 19:42] VITALS: BP 111/66; TEMP 97.4; O2SAT 97
[2025-08-05 00:14] VITALS: BP 119/72; TEMP 97.8; O2SAT 97
[2025-08-05 03:55] VITALS: BP 120/88; TEMP 97.6; O2SAT 94
[2025-08-05 05:37] LABS: PLATELET COUNT, AUTOMATED 181 10^3/uL (150-450)
[2025-08-05 06:10] LABS: CALCIUM LEVEL 8.2 MG/DL (8.3-10.6); CARBON DIOXIDE LEVEL 27 MMOL/L (20-31); CHLORIDE LEVEL 109 MMOL/L (98-107); CREATININE FOR GFR 0.87 MG/DL (0.70-1.30); GLOMERULAR FILTRATION RATE > 90.0 (>49); MAGNESIUM LEVEL 1.9 MG/DL (1.8-2.4); POTASSIUM SERUM 4.0 MMOL/L (3.5-5.1); SODIUM LEVEL 142 MMOL/L (136-145)
[2025-08-05 07:30] VITALS: BP 137/77; TEMP 98.3; O2SAT 97
[2025-08-05] MEDS ORDERED: ATOR1TAB21 PO (10:27)
[2025-08-05] MEDS ORDERED: CLOP75TA2 PO (10:27)
[2025-08-05] MEDS ORDERED: ASPI81TAEC PO (10:27)
[2025-08-05 11:21] VITALS: BP 126/68; TEMP 98.1; O2SAT 99
[2025-08-05 19:34] VITALS: BP 119/70; TEMP 97.8; O2SAT 99
[2025-08-06 00:08] VITALS: BP 118/63; TEMP 98.8; O2SAT 97
[2025-08-06 04:12] VITALS: BP 123/66; TEMP 98.4; O2SAT 95
[2025-08-06 06:26] VITALS: BP 119/61; TEMP 98.6; O2SAT 98
[2025-08-06 08:03] LABS: BASO # 0.1 10^3/uL (0.0-0.2); BASO % 0.6 % (0.0-1.0); EOS # 0.8 10^3/uL (0.0-0.5); EOS % 6.1 % (0.0-3.0); LYMPH # 2.1 10^3/uL (1.5-5.0); LYMPH % 16.4 % (24.0-44.0); MONO # 0.9 10^3/uL (0.0-0.8); MONO % 6.8 % (2.0-8.0); NEUTROPHILS # 8.8 10^3/uL (1.5-8.5); NEUTROPHILS % 69.5 % (36.0-66.0); PLATELET COUNT, AUTOMATED 214 10^3/uL (150-450)
[2025-08-06 08:33] LABS: CALCIUM LEVEL 8.4 MG/DL (8.3-10.6); CARBON DIOXIDE LEVEL 26 MMOL/L (20-31); CHLORIDE LEVEL 106 MMOL/L (98-107); CREATININE FOR GFR 0.85 MG/DL (0.70-1.30); GLOMERULAR FILTRATION RATE > 90.0 (>49); POTASSIUM SERUM 4.1 MMOL/L (3.5-5.1); SODIUM LEVEL 135 MMOL/L (136-145)
[2025-08-06 16:37] LABS: PROTEIN S ANTIGEN FREE 92 % normal (57-171); PROTEIN S ANTIGEN TOTAL 96 % normal (70-140)
[2025-08-07 14:12] LABS: PROTEIN C ANTIGEN 106 % normal (70-140)
[2025-08-07 15:02] LABS: FACTOR V LEIDEN FOR MEDINET NEGATIVE
[2025-08-07 17:11] LABS: FACTOR V111 ACTIVITY, CLOTTING 266 % normal (50-180); FACTOR VIII APTT 23 sec (23-32); RISTOCETIN COFACTOR 278 % normal (42-200); VW FACTOR ANTIGEN > 300 % (50-217)
[2025-08-07 19:48] LABS: FACTOR II PROTHROMBIN GENE AN NEGATIVE
== END 2025-08-06 11:05 | DRG 64 ==
LOC: M ED 11:24 → M ED INP 17:25 → M PCU 21:30
PROVIDERS: ADMIT Internal Medicine; ATTEND Internal Medicine
PROC: B246ZZZ Ultrasonography of Right and Left Heart (ICD-10-PCS; principal; 2025-08-03)
DX: I63.532 Cerebral infarction due to unspecified occlusion or stenosis of left posterior cerebral artery (principal); G93.41 Metabolic encephalopathy; E87.0 Hyperosmolality and hypernatremia; E87.20 Acidosis, unspecified; N17.9 Acute kidney failure, unspecified; M62.82 Rhabdomyolysis; G81.91 Hemiplegia, unspecified affecting right dominant side; I24.89 Other forms of acute ischemic heart disease; R73.03 Prediabetes; E78.5 Hyperlipidemia, unspecified; B18.2 Chronic viral hepatitis C; J45.909 Unspecified asthma, uncomplicated; M48.02 Spinal stenosis, cervical region; F39 Unspecified mood [affective] disorder; N40.0 Benign prostatic hyperplasia without lower urinary tract symptoms; G31.9 Degenerative disease of nervous system, unspecified; Z79.899 Other long term (current) drug therapy; Z91.013 Allergy to seafood

== ENCOUNTER 2025-08-20 20:35 | Emergency (ER) | payer MEDICARE, OTHER ==
[~2025-08-20] VITALS: Ht 180.3 cm; Wt 84.1 kg
[~2025-08-20 20:35] MED LIST changes: +ATOR1TAB21 PO; +CLOP75TA2 PO; +QUET100T2 PO
[2025-08-20] MEDS ORDERED: ISOVUE-370 76% 100 ML VIAL As Ordered ONE (22:27)
[2025-08-20 23:15] LABS: BASO # 0.1 10^3/uL (0.0-0.2); BASO % 0.8 % (0.0-1.0); EOS # 0.4 10^3/uL (0.0-0.5); EOS % 3.8 % (0.0-3.0); LYMPH # 2.0 10^3/uL (1.5-5.0); LYMPH % 17.9 % (24.0-44.0); MONO # 0.7 10^3/uL (0.0-0.8); MONO % 6.2 % (2.0-8.0); NEUTROPHILS # 7.7 10^3/uL (1.5-8.5); NEUTROPHILS % 71.0 % (36.0-66.0); PLATELET COUNT, AUTOMATED 298 10^3/uL (150-450)
[2025-08-20 23:37] LABS: ALT/SGPT 32 U/L (7.0-40); AST/SGOT 23 U/L (<34); CALCIUM LEVEL 9.4 MG/DL (8.3-10.6); CARBON DIOXIDE LEVEL 26 MMOL/L (20-31); CHLORIDE LEVEL 103 MMOL/L (98-107); CREATININE FOR GFR 0.90 MG/DL (0.70-1.30); GLOMERULAR FILTRATION RATE > 90.0 (>49); POTASSIUM SERUM 3.9 MMOL/L (3.5-5.1); SODIUM LEVEL 140 MMOL/L (136-145)
[2025-08-21 05:01] VITALS: BP 118/73; TEMP 97.8; O2SAT 98
== END 2025-08-21 05:00 | disposition home or self-care (01) ==
LOC: M ED 20:35
DX: S00.83XA Contusion of other part of head, initial encounter (principal); S70.01XA Contusion of right hip, initial encounter; R55 Syncope and collapse; W06.XXXA Fall from bed, initial encounter; Y92.009 Unspecified place in unspecified non-institutional (private) residence as the place of occurrence of the external cause; Y93.9 Activity, unspecified; Y99.9 Unspecified external cause status; B17.10 Acute hepatitis C without hepatic coma; J45.909 Unspecified asthma, uncomplicated; Z86.73 Personal history of transient ischemic attack (TIA), and cerebral infarction without residual deficits; Z79.02 Long term (current) use of antithrombotics/antiplatelets; Z79.899 Other long term (current) drug therapy; Z91.013 Allergy to seafood
CPT/HCPCS: 70450; 70496; 70498; 73502; 73700; 80053; 85025; 86850; 86900; 86901; 99284; Q9967